=== PATIENT | male | born 1945 | race Caucasian/White ===

== ENCOUNTER 2019-04-12 06:42 | Inpatient (IN) | payer OTHER, SELFPAY ==
[2019-04-12] VITALS (21 sets, daily range): BP systolic 125–211; BP diastolic 71–125; PULSE 65–92; RESP 17–30; TEMP 35.9–37.1; O2SAT 84–100; BMI 31.4
--- NOTE | ~2019-04-12 | XR_ITS ---
EXAMINATION: XR chest 1V portable DATE: 04/12/2019 07:34 INDICATION: Shortness of breath. TECHNIQUE: A single frontal view of the chest was obtained on 2 radiographs. COMPARISON: Chest single view 08/26/2018, CT abdomen and pelvis 05/13/2017 FINDINGS: The lungs are hyperexpanded with lucencies, consistent with emphysema. There are airspace o pacities in right lower lung zone. No pleural effusion or pneumothorax. The heart size is normal. The re is an old healed left rib fracture. IMPRESSION: 1. Worsened airspace opacities in right lower lung zone, consistent with atelectasis versus pneumonia . 2. Emphysema. Reviewed, dictated and finalized at location A. ORN ATTENDANT IMPRESSION: 1. Worsened airspace opacities in right lower lung zone, consistent with atelec tasis versus pneumonia. 2. Emphysema.
--- NOTE | 2019-04-12 06:46 | ECG_ITS ---
Measurements Intervals [place] Rate: 76 P: [place]: 0 QRS: 99 QRSD: 119 T: 4 QT: 388 QTc: 437 Interpretive Statements ATRIAL FIBRILLATION RIGHT AXIS DEVIATION LOW QRS VOLTAGE IN PRECORDIAL LEADS INCOMPLETE RIGHT BUNDLE BRANCH BLOCK BORDERLINE ST-T WAVE ABNORMALITY- INFERIOR LEADS BASELINE ARTIFACT- II, III, AVL, AVF, V2, V6 ABNORMAL ECG Electronically Signed On 04-12-2019 7:00:51 OBSERVATION ASSISTANT by Ever Giron D.O.
[2019-04-12] MEDS: FUROSEMIDE INJ 40 MG/4 ML VIAL IV PUSH (06:59)
[2019-04-12] MEDS: NITROGLYCERIN OINTMENT 1 INCH DOSE TRANSDERM (06:59)
[2019-04-12 07:03] LABS: Alveolar/Arterial O2 Gradient 152.8 mmHg; Base Excess ABG -4.2 mEq/l (+/-2.0); Fractional Inspired Oxygen 80 %; HCO3 ABG 23.4 mEq/l (22.0-26.0); Oxygen Content ABG 18.7 %vol (16.0-22.0); Oxygen Saturation ABG 99.7 % (95.0-100.0); Oxyhemoglobin 98.5 % THb (90.0-100.0); PCO2 ABG 53.6 mmHg (35.0-45.0); PO2 ABG 361.3 mmHg (80.0-100.0); PO2 FiO2 Ratio Arterial Blood 4.52 %; Total Hemoglobin 12.8 g/dL (12.0-18.0)
[2019-04-12 07:04] LABS: pH ABG 7.258 (7.350-7.450)
[2019-04-12 07:04] LABS: Basophils Percent Auto 0.5 % (0.2-1.2); Eosinophils Percent Auto 0.5 % (0-4.4); Hematocrit 37.7 % (42.0-52.0); Hemoglobin 11.9 g/dL (14.0-18.0); Immature Granulocyte Absolute 0.03 K/mm3 (0.00-0.031); Immature Granulocyte Percent A 0.4 % (0-0.5); Lymphocytes Absolute Auto 1.85 K/mm3 (0.9-3.2); Lymphocytes Percent Auto 24.2 % (18.3-44.2); Mean Corpuscular HGB Conc 31.6 g/dl (32-36); Mean Corpuscular Hemoglobin 29.5 pg (26-34); Mean Corpuscular Volume 93.3 fl (80-100); Mean Platelet Volume 10.9 fl (7.4-10.4); Monocytes Absolute Auto 0.7 K/mm3 (0.1-0.6); Neutrophils Percent Auto 65.4 % (45.5-73.1); Nucleated Red Blood Cells Perc 0.3 % (0.0-0.2); Platelet Count Result 223 k/mm3 (150-375); Red Blood Count 4.04 M/mm3 (4.6-6.20); Red Cell Distribution Width 13.7 % (11.5-14.5); White Blood Count 7.7 K/mm3 (4.5-10.0)
[2019-04-12 07:05] LABS: Device NON-INVASIVE VENT; Modified Allen's Test Pass; Non-Invasive Expiratory Pressure 6 CMH2O; Non-Invasive Inspiratory Pressure 12 CMH2O; Non-Invasive Vent Rate 4 /MIN; Site Drawn RIGHT RADIAL
--- NOTE | 2019-04-12 07:05 | PC.NURSE ---
pt states he isn't able to give urine sample at this time, pt refuses straight cath.
[2019-04-12] MEDS: ALBUTEROL SULFATE NEB 2.5 MG/0.5 ML INH 5 MG INHALATION ×2 (07:07→16:50)
[2019-04-12 08:22] LABS: Add Urine Microscopic? YES; Appearance Urine Clear (Clear); Bilirubin Urine Negative (Negative); Blood Urine Negative (Negative); Color Urine Yellow (Yellow); Glucose Urine UA Negative (Negative); Ketones Urine Negative (Negative); Leukocyte Esterase Ur Negative LEU/UL (Negative); Mucus Urine Rare /lpf; Nitrate Urine Negative (Negative); Protein Urine 2+ mg/dL (Negative); RBC Urine 0-2 /hpf (0-2); Specific Grav Ur 1.014 (1.001-1.035); Urobilinogen Urine Negative mg/dL (<2.0); WBC Urine 0-3 /hpf
--- NOTE | 2019-04-12 08:23 | PC.NURSE ---
LAB HAS REJECTED X2 GREEN [place]S, JOHN PARSON HAS REDRAWN PT AGAIN AT THIS TIME AND SENT BLOOD TO LAB.
[2019-04-12 08:36] LABS: Alanine Aminotransferase 11 U/L (4-50); Albumin Level 4.7 g/dL (3.5-5.1); Alkaline Phosphatase 101 U/L (38-126); Aspartate Amino Transferase 17 U/L (17-59); Bilirubin,Total 0.9 mg/dL (0.2-1.3); Blood Urea Nitrogen 21 mg/dL (9-20); Calcium 9.1 mg/dL (8.4-10.2); Carbon Dioxide 27 mmol/L (22-30); Chloride 101 mmol/L (98-107); Estimated Glomerular Filt Rate 46; Glucose 124 mg/dL (75-110); Potassium 4.9 mmol/L (3.4-5.0); Sodium 139 mmol/L (137-145)
[2019-04-12 08:47] LABS: NT Pro B Type Natriuretic Pept 4910 PG/ML (5-100); Troponin I 0.016 ng/mL (0.000-0.034)
--- NOTE | 2019-04-12 09:29 | ED.GENADULT ---
HPI - General Adult General Chief complaint: Shortness of Breath/Dyspnea Stated complaint: DIFFICULTY BREATHING Time Seen by Provider: 04/12/19 06:45 Source: patient Mode of arrival: EMS Limitations: no limitations History of Present Illness HPI narrative: 74-year-old with a history of COPD, renal insufficiency here with a complaint of shortness of breath since the ER last night. Patient states that he woke up with severe short of breath this morning. He denies any chest pain, no history of fever or chills. He states that he has dry productive cough at times. No history of nausea, vomiting or abdominal pain. Onset (ago): day(s) (1) Severity: moderate Related Data Home Medications Medication Instructions Recorded Confirmed finasteride 5 mg tablet 5 mg PO DAILY 04/08/19 furosemide 40 mg tablet 40 mg PO QAM 04/08/19 propranolol 40 mg tablet 40 mg PO Q12H 04/08/19 rosuvastatin 40 mg tablet 40 mg PO DAILY 04/08/19 tamsulosin 0.4 mg capsule 0.4 mg PO DAILY 04/08/19 Allergies Allergy/AdvReac Type Severity Reaction Status Date / Time codeine Allergy Unknown Upset Verified 05/05/18 15:01 stomach Review of Systems Review of Systems: All systems reviewed & are unremarkable except as noted in HPI and below Constitutional: Constitutional: Reports no additional constitutional complaints Eyes: Eyes: Reports no additional eye complaints ENT: Reports system reviewed and no additional complaints, except as documented Cardiovascular: Cardiovascular: Reports no additional cardiovascular complaints Respiratory: Respiratory: Reports dyspnea Gastrointestinal: Gastrointestinal: Reports no additional gastrointestinal complaints Musculoskeletal: Musculoskeletal: Reports no additional musculoskeletal complaints Integumentary/Breasts: Skin/Breast: Reports system reviewed and no additional complaints, except as docu Neurologic: Reports system reviewed and no additional complaints, except as documented [facility] Family History Family History (Updated 08/14/16 @ 09:50 by DOCTOR UNKNOWN) Mother Cerebrovascular accident Patient's mother is Family history of cardiovascular disease Father Patient's father is Sibling Acute myocardial infarction Social History Social History Smoking status: Former smoker Smoking end date: 03/30/10 Alcohol intake: current Exam Const: General: alert and ill appearing Orientation/consciousness: patient oriented x3 Other: in mild respiratory distress HENMT: Head: normal to inspection Eyes: Conjunctivae: conjunctivae normal Pupils: Equal, round and reactive pupils present Neck: Neck: normal visual inspection Chest: Chest palpation & inspection: normal inspection of the chest Resp: Effort & Inspection: labored Auscultation: wheezes GI: GI Palp: Yes Soft to palpation Back/Spine/Pelvis: Back: no CVA tenderness Skin: General skin exam: normal color Course Course Emergency Course: Patient feeling much better on BiPAP. I discussed lab, chest x-ray findings with patient and family. We will admit him to the hospital for IV antibiotics and for pneumonia Vital Signs Vital signs: Vital Signs Temperature 35.9 C L 04/12/19 06:41 Pulse Rate 81 04/12/19 06:41 Respiratory Rate 28 H 04/12/19 06:41 Blood Pressure 211/125 H 04/12/19 06:41 Pulse Oximetry 84 L 04/12/19 06:41 Temperature 35.9 C L 04/12/19 06:41 Pulse Rate 71 04/12/19 09:19 Respiratory Rate 17 04/12/19 09:19 Blood Pressure 132/84 04/12/19 09:19 Pulse Oximetry 100 04/12/19 09:19 Medical Decision Making Vital Signs Vital Signs: Vital Signs Temperature 35.9 C L 04/12/19 06:41 Pulse Rate 81 04/12/19 06:41 Respiratory Rate 28 H 04/12/19 06:41 Blood Pressure 211/125 H 04/12/19 06:41 Pulse Oximetry 84 L 04/12/19 06:41 Temperature 35.9 C L 04/12/19 06:41 Pulse Rate 71 04/12/19 09:19 Respiratory Rate 17 04/12/19 09:19
--- NOTE | 2019-04-12 12:12 | ADMGEN ---
This patient, Trent Swartz, was admitted to Intensive Care Unit-9. Patient/family oriented to hospital policies and general routines including ID bracelet, bed and alarms, visiting hours, pain management, procedures, bathroom and other care routines, personal items, smoking policy, room service/diet, and visiting hours. Valuables list has been completed. Information on how to activate the Rapid Response Team has been discussed. Patient/Family are encouraged to report perceived risks to care and to ask questions if they do not understand what they are told or what they should do.
[2019-04-12] MEDS: methylPREDNISolone SOD SUCC 125 MG VIAL 60 MG IV PUSH ×2 (13:45→17:19)
[2019-04-12] MEDS: TAMSULOSIN HCL 0.4 MG CAPSULE PO (14:29)
[2019-04-12] MEDS: ROSUVASTATIN 10 MG TABLET 40 MG PO (14:29)
[2019-04-12] MEDS: POTASSIUM CHLORIDE 20 MEQ TABLET.ER PO (14:29)
[2019-04-12] MEDS: FINASTERIDE 5 MG TABLET PO (14:30)
[2019-04-12 14:52] LABS: Alveolar/Arterial O2 Gradient 76.1 mmHg; Base Excess ABG -2.2 mEq/l (+/-2.0); Carboxyhemoglobin 0.3 % THb (0-2.0); Fractional Inspired Oxygen 28 %; Methemoglobin ABG 0.4 %THb (0-1.5); Oxygen Content ABG 16.1 %vol (16.0-22.0); Oxygen Saturation ABG 96.2 % (95.0-100.0); Oxyhemoglobin 94.9 % THb (90.0-100.0); PCO2 ABG 35.7 mmHg (35.0-45.0); PO2 ABG 81.4 mmHg (80.0-100.0); PO2 FiO2 Ratio Arterial Blood 2.91 %; Reduced Hemoglobin 4.4 %THb (0-5.0); pH ABG 7.407 (7.350-7.450)
[2019-04-12 14:53] LABS: Device NASAL CANNULA; Modified Allen's Test Pass; Site Drawn RIGHT RADIAL
[2019-04-12 14:59] LABS: Influenza Control Positive
[2019-04-12] MEDS: IPRATROPIUM BR 0.02% INH SOLN 0.5 MG/2.5 ML VIAL INHALATION (16:50)
--- NOTE | 2019-04-12 17:00 | PM.IMHP ---
H&P: HPI History of Present Illness Chief complaint: Shortness of breath. Narrative: Trent Swartz is a 74 year old male with multiple medical problems including ischemic heart disease, chronic atrial fibrillation, hypertension, chronic kidney disease, and probable COPD who presented to the emergency department earlier this morning via EMS from home for evaluation of shortness of breath. He went to bed around 22:00 and sometime during the middle of the night he woke up and at that time notes that he was gasping for air. He was unable to get back to sleep due to the shortness of breath, and eventually he called EMS. Upon their arrival, his oxygen saturation was 84%, was in respiratory distress, and was unable to speak in full sentences. He was placed on CPAP by EMS and was transitioned to BiPAP on arrival to the emergency department after ABGs were consistent with acute respiratory acidosis. At the time my evaluation, he has been taken off the BiPAP with normalization of his blood gases. Mr. Swartz tells me that he wakes up frequently at nighttime, struggling to breathe and gasping for air. An apnea link was positive in August 2018, and he is scheduled for a formal sleep study April 21, 2019. His tells him that he snores, he does not always feel well rested when waking, and frequently falls asleep while watching television. He believes that he has been diagnosed with asthma and/or COPD, but cannot recall ever seeing a molder shoulder pad and he is not on inhalers at home. At baseline, he does get short of breath quite easily and will get winded when climbing up a flight of steps. At the grocery store he uses the electric cart ?9 out of 10 times?, but mainly due to hip pain although he admits that he would probably be short of breath when shopping if he did not use the cart. He very rarely has a cough productive of clear phlegm, and this is unchanged. He will occasionally wheeze, but nothing significant. He is in chronic atrial fibrillation, and occasionally has palpitations and fluttering, but that is rare. He has not had fever, chills, or sweats. No sinus congestion, rhinorrhea, otalgia, or odynophagia. He denies chest pain, pleuritic pain, and palpitations. It sounds as though he might have mild orthopnea but he has always been able to sleep on just 1 pillow. Intermittently he will have lower extremity edema, but nothing significant. No history of venous thromboembolism. He denies calf pain and tenderness. No dysphagia or concerns for aspiration. At the time my evaluation, he is feeling much better and ?back to normal.? Review of Systems Review of Systems: Narrative: Twelve systems were reviewed with pertinent positives and negatives as per HPI. Frequent clear rhinorrhea but no overt cold or flu-like symptoms. He has not had exertional chest pain. Appetite is ?hit and miss? but he denies nausea and vomiting. He had some loose stools yesterday but no overt diarrhea. He denies dysuria. He does have symptoms of BPH, with slow stream and occasional dribbling as on medication for that at home. No epigastric pain, GERD, or indigestion. He has a history of GI bleed secondary to gastric AVMs which were cauterized within the past couple of years. This is why he is not on long-term anticoagulation for his chronic atrial fibrillation. Except as documented, all other systems were reviewed and are negative. [facility] Past Medical History Medical History (Updated 04/12/19 @ 18:49 by Nadege Mcelroy PA-C) Benign prostatic hyperplasia Chronic anemia Chronic atrial fibrillation Chronic kidney disease, stage 3 Baseline creatinine between 1.5 and 1.70. COPD (chronic obstructive pulmonary disease) I do not believe this is been officially diagnosed. Emphysema noted on imaging. Coronary artery disease With history of NV. Patient has drug-eluting stent to OM and 2 drug-eluting stent to LAD placed in December 2016. Stress test 09/07/2018 showed no fixed or
[2019-04-12 18:10] LABS: Glucose Point of Care 228 (65-105)
[2019-04-12] MEDS: PROPRANOLOL HCL 40 MG TABLET PO (19:56)
[2019-04-12 20:44] LABS: Glucose Point of Care 188 (65-105)
[2019-04-13] VITALS (25 sets, daily range): BP systolic 121–153; BP diastolic 56–72; PULSE 54–88; RESP 15–20; TEMP 36.1–36.7; O2SAT 92–98
[2019-04-13] MEDS: IPRATROPIUM BR 0.02% INH SOLN 0.5 MG/2.5 ML VIAL INHALATION ×3 (02:10→21:10)
[2019-04-13] MEDS: ALBUTEROL SULFATE NEB 2.5 MG/0.5 ML INH 5 MG INHALATION ×3 (02:10→21:10)
[2019-04-13 05:10] LABS: Hematocrit 31.8 % (42.0-52.0); Hemoglobin 10.4 g/dL (14.0-18.0); Immature Granulocyte Absolute 0.03 K/mm3 (0.00-0.031); Immature Granulocyte Percent A 0.3 % (0-0.5); Lymphocytes Absolute Auto 0.78 K/mm3 (0.9-3.2); Lymphocytes Percent Auto 8.9 % (18.3-44.2); Mean Corpuscular HGB Conc 32.7 g/dl (32-36); Mean Corpuscular Hemoglobin 29.9 pg (26-34); Mean Corpuscular Volume 91.4 fl (80-100); Mean Platelet Volume 10.9 fl (7.4-10.4); Monocytes Absolute Auto 0.1 K/mm3 (0.1-0.6); Monocytes Percent Auto 1.3 % (2.6-8.5); Neutrophils Absolute Auto 7.9 K/mm3 (1.3-6.7); Neutrophils Percent Auto 89.5 % (45.5-73.1); Platelet Count Result 174 k/mm3 (150-375); Red Blood Count 3.48 M/mm3 (4.6-6.20); Red Cell Distribution Width 13.6 % (11.5-14.5); White Blood Count 8.8 K/mm3 (4.5-10.0)
[2019-04-13 05:29] LABS: Blood Urea Nitrogen 31 mg/dL (9-20); Calcium 8.9 mg/dL (8.4-10.2); Carbon Dioxide 24 mmol/L (22-30); Chloride 94 mmol/L (98-107); Estimated CRCL calculation 41 ml/min; Estimated Glomerular Filt Rate 46; Glucose 160 mg/dL (75-110); Potassium 4.2 mmol/L (3.4-5.0); Sodium 133 mmol/L (137-145)
[2019-04-13] MEDS: PROPRANOLOL HCL 40 MG TABLET PO ×2 (08:29→20:19)
[2019-04-13] MEDS: POTASSIUM CHLORIDE 20 MEQ TABLET.ER PO (08:30)
[2019-04-13] MEDS: FINASTERIDE 5 MG TABLET PO (08:31)
[2019-04-13] MEDS: TAMSULOSIN HCL 0.4 MG CAPSULE PO (08:32)
[2019-04-13] MEDS: ROSUVASTATIN 10 MG TABLET 40 MG PO (08:32)
--- NOTE | 2019-04-13 09:03 | ECG_ITS ---
Measurements Intervals [place] Rate: 76 P: [place]: 0 QRS: 96 QRSD: 134 T: 4 QT: 448 QTc: 504 Interpretive Statements ATRIAL FIBRILLATION VENTRICULAR PREMATURE COMPLEX RIGHT BUNDLE BRANCH BLOCK BASELINE ARTIFACT- I, II, III, AVR, AVL, AVF, V1-V3, V6 ABNORMAL ECG Electronically Signed On 04-13-2019 10:14:22 COMMODITY BROKER by Ever Giron D.O.
[2019-04-13] MEDS: ASPIRIN 81 MG ENTERIC TABLET PO (09:46)
--- NOTE | 2019-04-13 10:29 | PM.IMPN ---
Progress Note: A&P Assessment and Plan (1) Acute respiratory failure with hypoxia and hypercapnia: Code(s): J96.01 - Acute respiratory failure with hypoxia; J96.02 - Acute respiratory failure with hypercapnia Status: Acute Assessment and Plan: Probably combination of COPD, obesity hypoventilation syndrome and obstructive sleep apnea. Did receive IV Solu-Medrol and nebulizer treatment on admission. Clinically does not appear to have pneumonia. Did receive IV antibiotics emergency room but will not continue at this point. Very quickly weaned off BiPAP on admission. Has already weaned off oxygen by the time my exam. Dr. Joseph has consulted and appreciate input from pulmonology standpoint. Will transfer to medical floor as stable. (2) COPD (chronic obstructive pulmonary disease): Qualifiers: COPD type: unspecified COPD Qualified Code(s): J44.9 - Chronic obstructive pulmonary disease, unspecified Code(s): J44.9 - Chronic obstructive pulmonary disease, unspecified Status: Acute Assessment and Plan: No previous diagnosis but chest x-ray on admission with emphysema. Will continue Symbicort as started on admission. Continue nebulizer treatments. Await further pulmonology recommendations. (3) Suspected sleep apnea: Code(s): R29.818 - Other symptoms and signs involving the nervous system Status: Acute Assessment and Plan: Previous abnormal Apnea Link in August 2018. Already has outpatient sleep study scheduled for 04/21/2019. Await further recommendations from pulmnology. (4) Diastolic congestive heart failure: Qualifiers: Heart failure chronicity: chronic Qualified Code(s): I50.32 - Chronic diastolic (congestive) heart failure Code(s): I50.30 - Unspecified diastolic (congestive) heart failure Status: Acute Assessment and Plan: He did receive 1 dose of IV Lasix in the emergency department but does not appear to be overloaded at this time. Anticipate will eventually resume home oral Lasix. Echocardiogram done today with EF 65-70%, abnormal diastolic dysfunction, moderate aortic valve sclerosis, [id number] mitral valve regurgitation and mild pulmonary hypertension. Will continue to monitor. (5) Chronic atrial fibrillation: Code(s): I48.20 - Chronic atrial fibrillation, unspecified Status: Acute Assessment and Plan: Telemetry reviewed on 04/13/19 with atrial fibrillation with heart rate controlled. Repeat EKG was done this morning as there was some concern about possible R on T on telemetry. EKG reviewed with atrial fibrillation with no other concern. Continue home propranolol and ASA. (6) Hypertension: Qualifiers: Hypertension type: essential hypertension Qualified Code(s): I10 - Essential (primary) hypertension Code(s): I10 - Essential (primary) hypertension Status: Acute Assessment and Plan: Blood pressure reviewed on 04/13/2019 with some variation but acceptable. Will continue to monitor on propranolol. (7) Chronic kidney disease, stage 3: Code(s): N18.3 - Chronic kidney disease, stage 3 (moderate) Status: Acute Assessment and Plan: Creatinine stable at baseline at 1.50 today. Will monitor. (8) DVT prophylaxis: Code(s): Z29.9 - Encounter for prophylactic measures, unspecified Status: Acute Assessment and Plan: SCDs. Time Spent With Patient Time with patient: 15 - 25 minutes Subjective Date/time seen: 04/13/19 10:29 Interval history: Date of Service: 04/13/2019. Admitted with acute respiratory failure. Patient reports he is feeling much better today. No shortness of breath. No cough. No chest pain or pressure. No abdominal pain. No headache or dizziness. Review of Systems Review of Systems: Narrative: Time feeling better today. Constitutional: Constitutional: Denies chills and Denies fever(s) ENT: Denies nasal conge
--- NOTE | 2019-04-13 10:59 | PCRCNOTE ---
HOME O2 EVAL COMPLETE, NO REQUIREMENTS
[2019-04-13] MEDS: PERFLUTREN LIPID MICROSPHERES 1.5 ML VIAL DILUTED TO 10 ML TOTAL VOLUME IV PUSH (11:32)
[2019-04-13 12:11] LABS: Glucose Point of Care 164 (65-105)
--- NOTE | 2019-04-13 13:15 | PC.NURSE ---
Received patient from IMU via bed with IMU staff. Patient settled into room. No distress noted. No c/o pain.
[2019-04-13 17:38] LABS: Glucose Point of Care 151 (65-105)
--- NOTE | 2019-04-13 18:48 | ECHO_ITS ---
Patient Info Name: Trent Swartz Age: 74 years : 1945 Gender: Male Ht: 67 in Wt: 201 lbs BSA: 2.11 m2 HR: 60 bpm BP: 121 / 61 mmHg Heart Rhythm: Atrial Fibrillation Technical Quality: Fair Exam Date: 04/13/2019 11:00 AM Exam Location: [facility] Patient Status: Inpatient Admit Date: 04/12/2019 Staff Ordering Physician: Nadege Mcelroy PA-C Glass Cylinder Flanger: Marty Saxena RDCS Attending Provider: Tatiana Cross MD Referring Physician: Navi PANCHAL; Exam Type: CA echo dop color flow w con Study Info Indications R06.02 - Shortness of breath Complete two-dimensional, color flow and Doppler transthoracic echocardiogram is performed with contrast to opacify the left ventricle and to improve the deliniation of the left ventricle endocardial borders. Contrast/Agitated Saline Contrast/Ag. Saline: Definity Amount: 3.00 ml Administered By: Kassandra Juares RN History/Risk Factors Afib, SOB, CAD/ID w/ stents, HTN, Hypoxia, CKD III, COPD, pHTN. Summary 1. Left ventricular chamber dimension is normal. 2. Left ventricular systolic function is normal, estimated at 65-70%. 3. There is moderate asymmetric septal increased left ventricular wall thickness. 4. The left ventricular diastolic function is abnormal. 5. The apical septum, and mid anteroseptal are hypokinetic. 6. Left atrial chamber dimension is severely enlarged. 7. Right atrial chamber dimension is moderately enlarged. 8. There is moderate aortic valve sclerosis. 9. There is mild to moderate mitral valve regurgitation. 10. There is mild tricuspid valve regurgitation. 11. Mild pulmonary hypertension, estimated pulmonary arterial systolic pressure is 43 mmHg. 12. There is mild pulmonic regurgitation. Left Ventricle Left ventricular chamber dimension is normal. Left ventricular systolic function is normal, estimated at 65-70%. There is moderate asymmetric septal increased left ventricular wall thickness. The left ventricular diastolic function is abnormal. The apical septum, and mid anteroseptal are hypokinetic. All other joy appear normal. Right Ventricle Right ventricular chamber dimension is normal. Right ventricular systolic function is normal. Left Atria Left atrial chamber dimension is severely enlarged. Right Atria Right atrial chamber dimension is moderately enlarged. Atrial Septum Intact interatrial septum visualized by color flow imaging. Aortic Valve The aortic valve is trileaflet. There is moderate aortic valve sclerosis. There is no aortic valve stenosis. There is trace aortic valve regurgitation. There is mild aortic valve calcification. Pulmonic Valve The pulmonic valve is normal. There is no pulmonic valve stenosis. There is mild pulmonic regurgitation. Mitral Valve The mitral valve has thickened leaflets and calcified annulus. There is no mitral valve stenosis. There is mild to moderate mitral valve regurgitation. Tricuspid Valve The tricuspid valve leaflets are normal. There is no significant tricuspid valve stenosis. There is mild tricuspid valve regurgitation. Mild pulmonary hypertension, estimated pulmonary arterial systolic pressure is 43 mmHg. Pericardium/Pleural The pericardium appears normal. There is trivial pericardial effusion. Inferior Vena Cava Dilated inferior vena cava with >50% collapse upon inspiration consistent with elevated right atrial pr
[2019-04-14] VITALS (7 sets, daily range): BP systolic 139–161; BP diastolic 56–85; PULSE 54–81; RESP 15–22; TEMP 36.1–36.4; O2SAT 96–98
[2019-04-14] MEDS: IPRATROPIUM BR 0.02% INH SOLN 0.5 MG/2.5 ML VIAL INHALATION ×2 (02:33→09:33)
[2019-04-14] MEDS: ALBUTEROL SULFATE NEB 2.5 MG/0.5 ML INH 5 MG INHALATION ×2 (02:33→09:33)
[2019-04-14 03:58] LABS: Glucose Point of Care 182 (65-105)
[2019-04-14 06:26] LABS: Glucose Point of Care 133 (65-105)
[2019-04-14] MEDS: POTASSIUM CHLORIDE 20 MEQ TABLET.ER PO (09:00)
[2019-04-14] MEDS: ASPIRIN 81 MG ENTERIC TABLET PO (09:00)
[2019-04-14] MEDS: FINASTERIDE 5 MG TABLET PO (09:00)
[2019-04-14] MEDS: PROPRANOLOL HCL 40 MG TABLET PO (09:01)
[2019-04-14] MEDS: ROSUVASTATIN 10 MG TABLET 40 MG PO (09:02)
[2019-04-14] MEDS: TAMSULOSIN HCL 0.4 MG CAPSULE PO (09:02)
[2019-04-14 12:45] LABS: Glucose Point of Care 110 (65-105)
--- NOTE | 2019-04-14 13:31 | PM.IMPN ---
Progress Note: A&P Assessment and Plan (1) Acute respiratory failure with hypoxia and hypercapnia: Code(s): J96.01 - Acute respiratory failure with hypoxia; J96.02 - Acute respiratory failure with hypercapnia Status: Acute Assessment and Plan: Probably combination of COPD, obesity hypoventilation syndrome and obstructive sleep apnea. Did receive IV Solu-Medrol and nebulizer treatment on admission. Clinically does not appear to have pneumonia. Did receive IV antibiotics emergency room but will not continue at this point. Very quickly weaned off BiPAP on admission. Remains off oxygen at this time. Originally did have pulmonology consultation but has significantly improved. Discussed with patient and supervisor [employer]. Can see supervisor [employer] as an outpatient. Will discharge home today. (2) COPD (chronic obstructive pulmonary disease): Qualifiers: COPD type: unspecified COPD Qualified Code(s): J44.9 - Chronic obstructive pulmonary disease, unspecified Code(s): J44.9 - Chronic obstructive pulmonary disease, unspecified Status: Acute Assessment and Plan: No previous diagnosis but chest x-ray on admission with emphysema. Will continue Symbicort as started on admission. Has been on nebulizer treatments here. Can see supervisor [employer] as outpatient. (3) Suspected sleep apnea: Code(s): R29.818 - Other symptoms and signs involving the nervous system Status: Acute Assessment and Plan: Previous abnormal Apnea Link in August 2018. Already has outpatient sleep study scheduled for 04/21/2019 and advised to keep that appointment. (4) Diastolic congestive heart failure: Qualifiers: Heart failure chronicity: chronic Qualified Code(s): I50.32 - Chronic diastolic (congestive) heart failure Code(s): I50.30 - Unspecified diastolic (congestive) heart failure Status: Acute Assessment and Plan: He did receive 1 dose of IV Lasix in the emergency department but does not appear to be overloaded at this time. Echocardiogram done on 04/13/2019 with EF 65-70%, abnormal diastolic dysfunction, moderate aortic valve sclerosis, [id number] mitral valve regurgitation and mild pulmonary hypertension. Resume home Lasix at discharge. (5) Chronic atrial fibrillation: Code(s): I48.20 - Chronic atrial fibrillation, unspecified Status: Acute Assessment and Plan: Heart rate remains controlled. Continue home propranolol. Continue home ASA. (6) Hypertension: Qualifiers: Hypertension type: essential hypertension Qualified Code(s): I10 - Essential (primary) hypertension Code(s): I10 - Essential (primary) hypertension Status: Acute Assessment and Plan: Blood pressure reviewed on 04/14/2019 and stable. Continue home propranolol. (7) Chronic kidney disease, stage 3: Code(s): N18.3 - Chronic kidney disease, stage 3 (moderate) Status: Acute Assessment and Plan: Creatinine stable at baseline at 1.50 on 04/13/2019. (8) DVT prophylaxis: Code(s): Z29.9 - Encounter for prophylactic measures, unspecified Status: Acute Assessment and Plan: SCDs. Time Spent With Patient Time with patient: 15 - 25 minutes Subjective Date/time seen: 04/14/19 13:31 Interval history: Date of Service: 04/14/2019. Admitted with acute respiratory failure. Feeling back to normal at this point. No headache or dizziness. No chest pain. No shortness of breath. Review of Systems Review of Systems: Narrative: Feeling better. Wants to go home. Constitutional: Constitutional: Denies chills and Denies fever(s) ENT: Denies nasal congestion and Denies nasal discharge Cardiovascular: Cardiovascular: Denies chest pain and Denies lightheadedness Respiratory: Respiratory: Denies cough and Denies dyspnea Gastrointestinal: Gastrointestinal: Denies abdominal pain, Denies nausea and Denies vomiting Genitourinary:
--- NOTE | 2019-04-14 18:12 | PM.DS ---
DS: Diagnosis Admitting Diagnosis Admitting Diagnosis: Acute respiratory failure with hypoxia Discharge Diagnosis (1) Acute respiratory failure with hypoxia and hypercapnia: Code(s): J96.01 - Acute respiratory failure with hypoxia; J96.02 - Acute respiratory failure with hypercapnia Status: Acute (2) COPD (chronic obstructive pulmonary disease): Qualifiers: COPD type: unspecified COPD Qualified Code(s): J44.9 - Chronic obstructive pulmonary disease, unspecified Code(s): J44.9 - Chronic obstructive pulmonary disease, unspecified Status: Acute Assessment and Plan: (3) Suspected sleep apnea: Code(s): R29.818 - Other symptoms and signs involving the nervous system Status: Acute (4) Diastolic congestive heart failure: Qualifiers: Heart failure chronicity: chronic Qualified Code(s): I50.32 - Chronic diastolic (congestive) heart failure Code(s): I50.30 - Unspecified diastolic (congestive) heart failure Status: Acute (5) Chronic atrial fibrillation: Code(s): I48.20 - Chronic atrial fibrillation, unspecified Status: Acute (6) Hypertension: Qualifiers: Hypertension type: essential hypertension Qualified Code(s): I10 - Essential (primary) hypertension Code(s): I10 - Essential (primary) hypertension Status: Acute (7) Chronic kidney disease, stage 3: Code(s): N18.3 - Chronic kidney disease, stage 3 (moderate) Status: Acute DS: Summary Hospital Course Reason for hospitalization: Shortness of breath. Hospital Course: Date of Service of Discharge: April 14, 2019. History of Present Illness: Patient is a 74-year-old gentle with multiple medical problems including ischemic heart disease, chronic atrial fibrillation, hypertension, chronic kidney disease and probable COPD present emergency department by EMS from home for evaluation of shortness of breath. Patient reports he went to bed around 2200 the evening before and sometime during the middle of night woke gasping for air. He reports he was unable to get back to sleep due to this shortness of breath and eventually called EMS. Upon arrival of EMS, oxygen saturation was 84% with patient in respiratory distress and unable to speak in full sentences. He was placed on CPAP by EMS and transition to BiPAP on arrival to the emergency department. He does report a history of waking up frequently at night struggling to breathe and gasping for air. He does already have a sleep study scheduled for April 21, 2019 based on an abnormal Apnea link in August 2018. He does not always feel rested when waking. He frequently falls asleep while watching television. He believes he has been diagnosed with asthma and/ or COPD but has never seen a environmental attorney. He does report getting short of breath quite easily. No recent fevers or chills. No chest pain or chest pressure. In the emergency room, findings were consistent with acute respiratory failure. As result, he was admitted for further evaluation and treatment. Course in Hospital: On admission, patient was placed in the intermediate care unit. As noted he was started on BiPAP but quickly weaned back on to oxygen by nasal cannula. He subsequently quickly weaned off to room air by the morning of 04/13/2019. Acute respiratory failure was felt to be probably a combination of COPD, obesity hypoventilation syndrome and obstructive sleep apnea. He did receive a dose of IV Solu-Medrol in the emergency room but this was not continued. Additionally, he was given dose of IV Lasix but transitioned back to his home oral Lasix by discharge with no additional IV diuretic given. He was also given some IV antibiotics in the emergency room but with no sign of infection these were not continued. He was however continued on nebulizer treatments. BiPAP was available if needed. He was started on Symbicort. Pulmonology consultation was initially
== END 2019-04-14 14:35 | disposition home or self-care (01) | DRG 206 ==
LOC: ANHED 09:52 → ANHICU 15:35 → ANH2MED 04-13 18:17 → ANHICU 04-18 13:11 → ANHIMU 04-18 13:11
PROVIDERS: Physician Assistant; Admitting Provider Family Medicine; Emergency Provider Family Medicine; PCP Internal Medicine; Visit Provider Hospitalist
DX: E66.2 Morbid (severe) obesity with alveolar hypoventilation (principal); I13.0 Hypertensive heart and chronic kidney disease with heart failure and stage 1 through stage 4 chronic kidney disease, or unspecified chronic kidney disease; I48.20 Chronic atrial fibrillation, unspecified; I50.32 Chronic diastolic (congestive) heart failure; J43.9 Emphysema, unspecified; Z68.31 Body mass index [BMI] 31.0-31.9, adult; I11.0 Hypertensive heart disease with heart failure; N18.3 Chronic kidney disease, stage 3 (moderate); I25.9 Chronic ischemic heart disease, unspecified; N40.0 Benign prostatic hyperplasia without lower urinary tract symptoms; I25.10 Atherosclerotic heart disease of native coronary artery without angina pectoris; Z95.5 Presence of coronary angioplasty implant and graft; I25.2 Old myocardial infarction; D64.9 Anemia, unspecified; G25.0 Essential tremor; Z86.73 Personal history of transient ischemic attack (TIA), and cerebral infarction without residual deficits; Z85.118 Personal history of other malignant neoplasm of bronchus and lung; Z90.2 Acquired absence of lung [part of]; E78.2 Mixed hyperlipidemia; M19.90 Unspecified osteoarthritis, unspecified site; Z95.820 Peripheral vascular angioplasty status with implants and grafts; I27.20 Pulmonary hypertension, unspecified
CPT/HCPCS: 36415; 36600; 71045; 80048; 80053; 81001; 82375; 82805; 83050; 83880; 84484; 85025; 87040; 87804; 93005; 94002; 94618; 94640; 96374; 96375; 99285; A9270; C8929; J0456; J0696; J1940; J2930; Q9957

== ENCOUNTER 2019-06-06 08:00 | Inpatient (IN) | payer OTHER, SELFPAY ==
[2019-06-06] VITALS (25 sets, daily range): BP systolic 123–210; BP diastolic 68–103; PULSE 76–109; RESP 16–34; TEMP 36.1–37.1; O2SAT 92–100; BMI 32.8
--- NOTE | ~2019-06-06 | XR_ITS ---
XR chest 1V portable 06/06/2019 08:31 Indication: Cough with shortness of breath Procedure: AP portable chest Comparison: Comparison to multiple prior studies sequentially, with oldest reviewed study dated 02/27. Findings: Cardiomegaly. There is asymmetric airspace disease of the right lung. No pleural effusion o r pneumothorax. No acute osseous abnormality. The lungs are hyperinflated which is consistent with, b ut not diagnostic of chronic obstructive pulmonary disease. Impression: 1: Asymmetric right-sided airspace disease which may represent pneumonia or asymmetric edema. Reviewed, dictated and finalized at location A. Impression: 1: Asymmetric right-sided airspace disease which may represent pneumonia or asy mmetric edema.
--- NOTE | 2019-06-06 08:03 | ECG_ITS ---
Measurements Intervals [place] Rate: 86 P: [place]: 0 QRS: 105 QRSD: 114 T: 13 QT: 363 QTc: 434 Interpretive Statements ATRIAL FIBRILLATION RIGHT AXIS DEVIATION LOW QRS VOLTAGE IN PRECORDIAL LEADS INCOMPLETE RIGHT BUNDLE BRANCH BLOCK BORDERLINE ST-T WAVE ABNORMALITY- INFERIOR LEADS BASELINE ARTIFACT- I, II, III, AVR, AVL,A VF, V1-V6 ABNORMAL ECG Electronically Signed On 06-06-2019 8:15:33 CDT by Ever Giron D.O.
[2019-06-06] MEDS: IPRATROPIUM BR 0.02% INH SOLN 0.5 MG/2.5 ML VIAL INHALATION ×3 (08:08→20:00)
[2019-06-06] MEDS: ALBUTEROL SULFATE NEB 2.5 MG/0.5 ML INH 5 MG INHALATION ×3 (08:09→20:00)
--- NOTE | 2019-06-06 08:12 | ED.SOB ---
HPI - SOB/Dyspnea General Chief Complaint: Shortness of Breath/Dyspnea Stated Complaint: DIFFICULTY BREATHING Source: RN notes reviewed History of Present Illness HPI Narrative: Patient presents emergency department from home for shortness of breath. Patient states symptoms began last night. He states he began to progressively get more short of breath as well as a cough that is nonproductive. Patient states he has a history of COPD and CHF but is not currently on oxygen. When EMS arrived the patient was on 6 L nasal cannula. With increased work of breathing was placed on CPAP at that time patient was given Solu-Medrol 125 as well as breathing treatment. Patient denies any fevers or chills chest pain abdominal pain nausea vomiting or any other symptoms at this time. Related Data Home Medications Medication Instructions Recorded Confirmed furosemide 40 mg tablet 40 mg PO QAM 04/08/19 06/06/19 rosuvastatin 40 mg tablet 40 mg PO DAILY 04/08/19 06/06/19 finasteride [Proscar] 5 mg PO DAILY 04/12/19 06/06/19 potassium chloride [K-Tab] 20 meq PO DAILY 04/12/19 06/06/19 Allergies Allergy/AdvReac Type Severity Reaction Status Date / Time codeine Allergy Unknown Upset Verified 04/19/19 13:05 stomach Review of Systems Review of Systems: Narrative: Gen.: Denies fevers or chills ENT: Denies congestion Respiratory: See HPI CV: Denies chest pain or palpitations GI: Denies abdominal pain nausea, emesis or diarrhea Musculoskeletal: Denies back pain or muscle pain Neuro: Denies numbness, tingling, weakness or focal weakness Skin: Denies rash Except as documented, all other systems reviewed and negative [facility] Past Medical History Medical History Benign prostatic hyperplasia Chronic anemia Chronic atrial fibrillation Chronic kidney disease, stage 3 Baseline creatinine between 1.5 and 1.70. COPD (chronic obstructive pulmonary disease) I do not believe this is been officially diagnosed. Emphysema noted on imaging. Coronary artery disease With history of [place]. Patient has drug-eluting stent to OM and 2 drug-eluting stent to LAD placed in December 2016. Stress test 09/07/2018 showed no fixed or reversible deficits with an ejection fraction of 77%. Depression Diastolic congestive heart failure Echocardiogram 08/26/2018 showed diastolic dysfunction with an ejection fraction of 65% and moderate biatrial enlargement, mild MR, mild TR, mild TR, and mild aortic stenosis with a valve area of 1.9 centimeters squared. Hypokinetic segments of the left ventricle include basal anterior and mid anterior segment. Akinetic segments include the mid anteroseptal segment. Essential tremor History of CVA (cerebrovascular accident) without residual deficits Hypertension Impaired fasting glucose Lung cancer Status post partial left upper lobectomy in December 2012. Mixed hyperlipidemia Osteoarthritis Peripheral arterial disease With history of lower extremity angioplasty and stents as well as endovascular repair of abdominal aortic aneurysm. Pulmonary hypertension Echocardiogram August 26, 2018 showed an RVSP of 50 to 55 millimeters of mercury. Surgical History Surgical History History of aortic aneurysm repair Endovascular abdominal aortic aneurysm repair with right renal arterial balloon angioplasty and right common femoral artery graft in December 2013. History of excision of epidermal inclusion cyst From the chest wall. History of vascular surgery Bilateral external iliac artery angioplasty in October 2011. Also with right renal artery balloon angioplasty and right common femoral artery graft in December 2013 at the time of endovascular repair of abdominal aortic aneurysm. Status post coronary artery stent placement Drug-eluting stent to the OM and 2 drug-eluting stents to the LAD in December 2016. Status post lobectomy of lung Partial left upper
[2019-06-06 08:14] LABS: Basophils Absolute Auto 0.1 K/mm3 (0.0-0.1); Basophils Percent Auto 0.6 % (0.2-1.2); Eosinophils Absolute Auto 0.1 K/mm3 (0-0.3); Eosinophils Percent Auto 0.8 % (0-4.4); Hematocrit 39.1 % (42.0-52.0); Hemoglobin 12.1 g/dL (14.0-18.0); Immature Granulocyte Absolute 0.03 K/mm3 (0.00-0.031); Immature Granulocyte Percent A 0.3 % (0-0.5); Lymphocytes Absolute Auto 1.42 K/mm3 (0.9-3.2); Lymphocytes Percent Auto 16.2 % (18.3-44.2); Mean Corpuscular HGB Conc 30.9 g/dl (32-36); Mean Corpuscular Hemoglobin 28.9 pg (26-34); Mean Corpuscular Volume 93.5 fl (80-100); Mean Platelet Volume 10.4 fl (7.4-10.4); Monocytes Absolute Auto 0.5 K/mm3 (0.1-0.6); Monocytes Percent Auto 5.8 % (2.6-8.5); Neutrophils Absolute Auto 6.7 K/mm3 (1.3-6.7); Neutrophils Percent Auto 76.3 % (45.5-73.1); Platelet Count Result 194 k/mm3 (150-375); Red Blood Count 4.18 M/mm3 (4.6-6.20); Red Cell Distribution Width 14.5 % (11.5-14.5); White Blood Count 8.8 K/mm3 (4.5-10.0)
--- NOTE | 2019-06-06 08:14 | PC.NURSE ---
Called lab to add on PT INR PTT, CBC, and BNP.
[2019-06-06 08:21] LABS: Base Excess ABG -3.7 mEq/l (+/-2.0); Fractional Inspired Oxygen 70 %; HCO3 ABG 22.6 mEq/l (22.0-26.0); Oxygen Content ABG 18.1 %vol (16.0-22.0); Oxygen Saturation ABG 99.1 % (95.0-100.0); Oxyhemoglobin 98.1 % THb (90.0-100.0); PCO2 ABG 46.1 mmHg (35.0-45.0); PO2 ABG 176.5 mmHg (80.0-100.0); PO2 FiO2 Ratio Arterial Blood 2.52 %; Total Hemoglobin 12.9 g/dL (12.0-18.0); pH ABG 7.309 (7.350-7.450)
[2019-06-06 08:22] LABS: Device NON-INVASIVE VENT; Modified Allen's Test Pass; Site Drawn RIGHT RADIAL
[2019-06-06 08:23] LABS: Non-Invasive Expiratory Pressure 8 CMH2O; Non-Invasive Inspiratory Pressure 14 CMH2O; Non-Invasive Vent Rate 4 /MIN
[2019-06-06 08:27] LABS: INR 1.1; Partial Thromboplastin Time 24.5 SECONDS (22.3-36.8); Prothrombin Time 13.7 Seconds (11.1-14.7)
[2019-06-06 08:29] LABS: Alanine Aminotransferase 12 U/L (4-50); Albumin Level 4.3 g/dL (3.5-5.1); Alkaline Phosphatase 124 U/L (38-126); Aspartate Amino Transferase 19 U/L (17-59); Bilirubin,Total 0.8 mg/dL (0.2-1.3); Blood Urea Nitrogen 21 mg/dL (9-20); Calcium 8.7 mg/dL (8.4-10.2); Carbon Dioxide 28 mmol/L (22-30); Chloride 102 mmol/L (98-107); Estimated Glomerular Filt Rate 49; Glucose 159 mg/dL (75-110); Potassium 4.7 mmol/L (3.4-5.0); Sodium 141 mmol/L (137-145)
[2019-06-06 08:41] LABS: Troponin I < 0.012 ng/mL (0.000-0.034)
[2019-06-06 08:45] LABS: NT Pro B Type Natriuretic Pept 4670 PG/ML (5-100)
--- NOTE | 2019-06-06 09:47 | PM.IMHP ---
H&P: HPI History of Present Illness Chief complaint: Acute respiratory failure with hypoxia/community a Narrative: Trent Swartz is a 74 year old male was in his usual state health until about 5 days ago. He developed a wet sounding cough but was unable to cough anything. He did not notice shortness of breath fevers chills sweats or chest discomfort. He had not traveled recently nor anti been exposed ill individuals. However on June 04 about 10:00 p.m. he became acutely more short of breath. Again no associated fevers chills or chest pain or rigors. He did note however that his feet were a bit swollen. EMS was summoned and on the morning of June 05 and he was brought to the emergency department for further evaluation. He does not over options home. With application of oxygen at 6 L and BiPAP mask he is feeling much better. He has also received IV steroids and nebulized bronchodilators. He was hospitalized in March of this year for acute on chronic diastolic congestive heart failure. Review of Systems Review of Systems: All systems reviewed & are unremarkable except as noted in HPI and below PMFSH Past Medical History Medical History Benign prostatic hyperplasia Chronic anemia Chronic atrial fibrillation Chronic kidney disease, stage 3 Baseline creatinine between 1.5 and 1.70. COPD (chronic obstructive pulmonary disease) I do not believe this is been officially diagnosed. Emphysema noted on imaging. Coronary artery disease With history of [place]. Patient has drug-eluting stent to OM and 2 drug-eluting stent to LAD placed in December 2016. Stress test 09/07/2018 showed no fixed or reversible deficits with an ejection fraction of 77%. Depression Diastolic congestive heart failure Echocardiogram 08/26/2018 showed diastolic dysfunction with an ejection fraction of 65% and moderate biatrial enlargement, mild MR, mild TR, mild TR, and mild aortic stenosis with a valve area of 1.9 centimeters squared. Hypokinetic segments of the left ventricle include basal anterior and mid anterior segment. Akinetic segments include the mid anteroseptal segment. Essential tremor History of CVA (cerebrovascular accident) without residual deficits Hypertension Impaired fasting glucose Lung cancer Status post partial left upper lobectomy in December 2012. Mixed hyperlipidemia Osteoarthritis Peripheral arterial disease With history of lower extremity angioplasty and stents as well as endovascular repair of abdominal aortic aneurysm. Pulmonary hypertension Echocardiogram August 26, 2018 showed an RVSP of 50 to 55 millimeters of mercury. Surgical History Surgical History History of aortic aneurysm repair Endovascular abdominal aortic aneurysm repair with right renal arterial balloon angioplasty and right common femoral artery graft in December 2013. History of excision of epidermal inclusion cyst From the chest wall. History of vascular surgery Bilateral external iliac artery angioplasty in October 2011. Also with right renal artery balloon angioplasty and right common femoral artery graft in December 2013 at the time of endovascular repair of abdominal aortic aneurysm. Status post coronary artery stent placement Drug-eluting stent to the OM and 2 drug-eluting stents to the LAD in December 2016. Status post lobectomy of lung Partial left upper lobe lobectomy in December 2012 for lung cancer. Family History Family History Mother Cerebrovascular accident Patient's mother is Family history of cardiovascular disease Diabetes mellitus Father Carcinoma of colon Patient's father is Sibling Acute myocardial infarction from [place] at 44. Social History Social History (Updated 06/06/19 @ 10:03 by Ben Rodríguez MD) Social History: The patient lives in [facility]
[2019-06-06] MEDS: FUROSEMIDE INJ 40 MG/4 ML VIAL IV PUSH (10:00)
--- NOTE | 2019-06-06 10:50 | ADMGEN ---
This patient, Trent Swartz, was admitted to IMU Room 209-. Patient/family oriented to hospital policies and general routines including ID bracelet, bed and alarms, visiting hours, pain management, procedures, bathroom and other care routines, personal items, smoking policy, room service/diet, and visiting hours. Valuables list has been completed. Information on how to activate the Rapid Response Team has been discussed. Patient/Family are encouraged to report perceived risks to care and to ask questions if they do not understand what they are told or what they should do.
[2019-06-06] MEDS: methylPREDNISolone SOD SUCC 125 MG VIAL 60 MG IV PUSH ×3 (11:04→23:48)
[2019-06-06 12:15] LABS: Glucose Point of Care 145 (65-105)
[2019-06-06 12:57] LABS: Troponin I 0.062 ng/mL (0.000-0.034)
[2019-06-06 16:15] LABS: Glucose Point of Care 176 (65-105)
[2019-06-06 17:13] LABS: Troponin I 0.059 ng/mL (0.000-0.034)
[2019-06-06 20:45] LABS: Glucose Point of Care 227 (65-105)
[2019-06-07] VITALS (19 sets, daily range): BP systolic 116–163; BP diastolic 48–77; PULSE 70–108; RESP 16–22; TEMP 36.4–36.8; O2SAT 96–99
[2019-06-07] MEDS: IPRATROPIUM BR 0.02% INH SOLN 0.5 MG/2.5 ML VIAL INHALATION ×3 (02:10→14:46)
[2019-06-07] MEDS: ALBUTEROL SULFATE NEB 2.5 MG/0.5 ML INH 5 MG INHALATION ×3 (02:10→14:45)
[2019-06-07 04:49] LABS: Basophils Percent Auto 0.1 % (0.2-1.2); Hematocrit 34.4 % (42.0-52.0); Hemoglobin 10.9 g/dL (14.0-18.0); Immature Granulocyte Absolute 0.03 K/mm3 (0.00-0.031); Immature Granulocyte Percent A 0.3 % (0-0.5); Immature Reticulocyte Fraction 28.7 % (3.0-15.9); Lymphocytes Absolute Auto 0.66 K/mm3 (0.9-3.2); Lymphocytes Percent Auto 6.2 % (18.3-44.2); Mean Corpuscular HGB Conc 31.7 g/dl (32-36); Mean Corpuscular Hemoglobin 28.8 pg (26-34); Mean Corpuscular Volume 90.8 fl (80-100); Monocytes Absolute Auto 0.1 K/mm3 (0.1-0.6); Monocytes Percent Auto 1.2 % (2.6-8.5); Neutrophils Absolute Auto 9.8 K/mm3 (1.3-6.7); Neutrophils Percent Auto 92.2 % (45.5-73.1); Platelet Count Result 179 k/mm3 (150-375); Red Blood Count 3.79 M/mm3 (4.6-6.20); Red Cell Distribution Width 14.4 % (11.5-14.5); Reticulocyte Hemoglobin Conten 32.2 pg (28.2-35.7); Reticulocyte Percent 2.31 % (0.7-4.3); Reticulocytes Absolute 0.09 B/L (32.2-175.7); White Blood Count 10.7 K/mm3 (4.5-10.0)
[2019-06-07 05:18] LABS: Blood Urea Nitrogen 33 mg/dL (9-20); Calcium 8.5 mg/dL (8.4-10.2); Carbon Dioxide 26 mmol/L (22-30); Chloride 95 mmol/L (98-107); Estimated CRCL calculation 38 ml/min; Estimated Glomerular Filt Rate 42; Glucose 171 mg/dL (75-110); Potassium 4.5 mmol/L (3.4-5.0); Sodium 134 mmol/L (137-145)
[2019-06-07 05:25] LABS: Hemoglobin A1C 6.4 % (<5.7)
[2019-06-07 05:36] LABS: Iron 66 ug/dL (49-181)
[2019-06-07 05:46] LABS: Percent Iron Saturation 17 % (20-50)
[2019-06-07 06:11] LABS: Folic Acid 5.3 ng/mL (2.76->20)
[2019-06-07] MEDS: methylPREDNISolone SOD SUCC 125 MG VIAL 60 MG IV PUSH ×3 (06:34→17:57)
[2019-06-07 08:34] LABS: Glucose Point of Care 201 (65-105)
[2019-06-07] MEDS: ROSUVASTATIN 10 MG TABLET 40 MG PO (12:39)
[2019-06-07] MEDS: FUROSEMIDE 40 MG TABLET PO (12:39)
[2019-06-07] MEDS: POTASSIUM CHLORIDE 20 MEQ TABLET.ER PO (12:39)
[2019-06-07] MEDS: FINASTERIDE 5 MG TABLET PO (12:39)
[2019-06-07] MEDS: TAMSULOSIN HCL 0.4 MG CAPSULE PO (12:39)
[2019-06-07] MEDS: PROPRANOLOL HCL 40 MG TABLET PO ×2 (12:40→21:16)
[2019-06-07] MEDS: ASPIRIN 81 MG ENTERIC TABLET PO (12:40)
[2019-06-07] MEDS: ENOXAPARIN 40 MG/0.4 ML SYRINGE SUB-Q (12:40)
[2019-06-07 17:10] LABS: Glucose Point of Care 224 (65-105)
--- NOTE | 2019-06-07 17:38 | P.PNIM_ITS ---
Progress Note: A&P Assessment and Plan (1) CAP (community acquired pneumonia): Qualifiers: Laterality: right Lung location: lower lobe of lung Qualified Code(s): J18.9 - Pneumonia, unspecified organism Code(s): J18.9 - Pneumonia, unspecified organism Status: Acute Assessment and Plan: * Ceftriaxone and azithromycin D #2 * Nebulized bronchodilators * Steroids * Pulmonary toilet * He will require follow-up imaging until infiltrate clears (2) COPD (chronic obstructive pulmonary disease): Qualifiers: COPD type: unspecified COPD Qualified Code(s): J44.9 - Chronic obstructive pulmonary disease, unspecified Code(s): J44.9 - Chronic obstructive pulmonary disease, unspecified Status: Acute Assessment and Plan: * Oxygen, BiPAP, steroids(start taper), bronchodilators, pulmonary toilet (3) Diastolic congestive heart failure: Qualifiers: Heart failure chronicity: chronic Qualified Code(s): I50.32 - Chronic diastolic (congestive) heart failure Code(s): I50.30 - Unspecified diastolic (congestive) heart failure Status: Acute Assessment and Plan: * IV furosemide 40 mg x 1 * Monitor volume status * Continue home regimen including p.o. Lasix 06/06 (4) Chronic atrial fibrillation: Code(s): I48.20 - Chronic atrial fibrillation, unspecified Status: Acute Assessment and Plan: * Continue home regimen with propanolol for rate control. No anticoagulation with history of GI bleed (5) Pulmonary hypertension: Code(s): I27.20 - Pulmonary hypertension, unspecified Status: Acute Assessment and Plan: * Secondary to COPD and congestive heart failure and mitral insufficiency * Continue home regimen (6) Mitral regurgitation: Qualifiers: Cardiac valve disease etiology: nonrheumatic Qualified Code(s): I34.0 - Nonrheumatic mitral (valve) insufficiency Code(s): I34.0 - Nonrheumatic mitral (valve) insufficiency Status: Acute Assessment and Plan: * Follow-up as outpatient with Cardiology (7) Coronary artery disease: Qualifiers: Coronary Disease-Associated Artery/Lesion type: [place] artery [place] vs. transplanted heart: [place] heart Associated angina: without angina Qualified Code(s): I25.10 - Atherosclerotic heart disease of [place] coronary artery without angina pectoris Code(s): I25.10 - Atherosclerotic heart disease of [place] coronary artery without angina pectoris Status: Acute Assessment and Plan: * Currently without anginal symptoms continue aspirin, statin, and beta-chino (8) Impaired fasting glucose: Code(s): R73.01 - Impaired fasting glucose Status: Acute Assessment and Plan: * A1c 6 4. Taper steroid rapidly (9) Chronic kidney disease, stage 3: Code(s): N18.3 - Chronic kidney disease, stage 3 (moderate) Status: Acute Assessment and Plan: * Creatinine 1.6 at baseline Subjective Date/time seen: 06/07/19 17:38 Interval history: Date of visit 06/06. 74-year-old white male with chronic renal failure stage 3 atrial fibrillation and history of diastolic heart failure with history of coronary disease admitted with increasing cough shortness of breath found to have right lower lobe infiltrate. On BiPAP overnight feels much better now. Less cough and shortness of breath. No chest pain. Exam Narrative: Exam Narrative: Blood pressure 124/60 pulse is 70 saturating 96% on 2 L Pupil equal reactive to light sclera anicteric Lungs very fa
--- NOTE | 2019-06-07 17:38 | PM.IMPN ---
Progress Note: A&P Assessment and Plan (1) CAP (community acquired pneumonia): Qualifiers: Laterality: right Lung location: lower lobe of lung Qualified Code(s): J18.9 - Pneumonia, unspecified organism Code(s): J18.9 - Pneumonia, unspecified organism Status: Acute Assessment and Plan: Ceftriaxone and azithromycin D #2 Nebulized bronchodilators Steroids Pulmonary toilet He will require follow-up imaging until infiltrate clears (2) COPD (chronic obstructive pulmonary disease): Qualifiers: COPD type: unspecified COPD Qualified Code(s): J44.9 - Chronic obstructive pulmonary disease, unspecified Code(s): J44.9 - Chronic obstructive pulmonary disease, unspecified Status: Acute Assessment and Plan: Oxygen, BiPAP, steroids(start taper), bronchodilators, pulmonary toilet (3) Diastolic congestive heart failure: Qualifiers: Heart failure chronicity: chronic Qualified Code(s): I50.32 - Chronic diastolic (congestive) heart failure Code(s): I50.30 - Unspecified diastolic (congestive) heart failure Status: Acute Assessment and Plan: IV furosemide 40 mg x 1 Monitor volume status Continue home regimen including p.o. Lasix 06/06 (4) Chronic atrial fibrillation: Code(s): I48.20 - Chronic atrial fibrillation, unspecified Status: Acute Assessment and Plan: Continue home regimen with propanolol for rate control. No anticoagulation with history of GI bleed (5) Pulmonary hypertension: Code(s): I27.20 - Pulmonary hypertension, unspecified Status: Acute Assessment and Plan: Secondary to COPD and congestive heart failure and mitral insufficiency Continue home regimen (6) Mitral regurgitation: Qualifiers: Cardiac valve disease etiology: nonrheumatic Qualified Code(s): I34.0 - Nonrheumatic mitral (valve) insufficiency Code(s): I34.0 - Nonrheumatic mitral (valve) insufficiency Status: Acute Assessment and Plan: Follow-up as outpatient with Cardiology (7) Coronary artery disease: Qualifiers: Coronary Disease-Associated Artery/Lesion type: [place] artery [place] vs. transplanted heart: [place] heart Associated angina: without angina Qualified Code(s): I25.10 - Atherosclerotic heart disease of [place] coronary artery without angina pectoris Code(s): I25.10 - Atherosclerotic heart disease of [place] coronary artery without angina pectoris Status: Acute Assessment and Plan: Currently without anginal symptoms continue aspirin, statin, and beta-chino (8) Impaired fasting glucose: Code(s): R73.01 - Impaired fasting glucose Status: Acute Assessment and Plan: A1c 6 4. Taper steroid rapidly (9) Chronic kidney disease, stage 3: Code(s): N18.3 - Chronic kidney disease, stage 3 (moderate) Status: Acute Assessment and Plan: Creatinine 1.6 at baseline Subjective Date/time seen: 06/07/19 17:38 Interval history: Date of visit 06/06. 74-year-old white male with chronic renal failure stage 3 atrial fibrillation and history of diastolic heart failure with history of coronary disease admitted with increasing cough shortness of breath found to have right lower lobe infiltrate. On BiPAP overnight feels much better now. Less cough and shortness of breath. No chest pain. Exam Narrative: Exam Narrative: Blood pressure 124/60 pulse is 70 saturating 96% on 2 L Pupil equal reactive to light sclera anicteric Lungs very faint crackle if any right lower base distant breath sounds CV irregular I hear no murmur Abdomen soft nontender Extremities without edema warm Neuro alert pleasant cooperative no focal deficits Objective Data Vital Signs Vital Signs: Vital Signs - 24 hr 06/06/19 17:49 06/06/19 17:54 06/06/19 19:36 Temperature 36.1 C L Pulse Rate 87 80 85 Respiratory Rate 18 16 Blood Pressure 136/81
[2019-06-07] MEDS: INSULIN ASPART (*BKC) 100 UNITS/ML SUB-Q (17:51)
--- NOTE | 2019-06-07 20:10 | PC.NURSE ---
pt transferred to [facility]- at 2009. Report given to GREG Montoya at 1955. Belonging sent with pt.
--- NOTE | 2019-06-07 20:34 | PC.NURSE ---
This patient, Trent Swartz, was received from [[id number] ] on 06/07/19 at 2009. Personal belongings list checked and signed. Patient/family oriented to unit policies and routines
--- NOTE | 2019-06-07 20:40 | PC.NURSE ---
Patient stated that he has contacted his Milana and let her know that he has changed rooms.
--- NOTE | 2019-06-07 22:34 | PCRCNOTE ---
Window of time for administration has passed. See next scheduled administration.
[2019-06-08] VITALS (14 sets, daily range): BP systolic 119–135; BP diastolic 49–79; PULSE 65–84; RESP 18–20; TEMP 36.4–36.7; O2SAT 93–97
[2019-06-08] MEDS: IPRATROPIUM BR 0.02% INH SOLN 0.5 MG/2.5 ML VIAL INHALATION ×4 (02:11→20:22)
[2019-06-08] MEDS: ALBUTEROL SULFATE NEB 2.5 MG/0.5 ML INH 5 MG INHALATION ×4 (02:11→20:20)
[2019-06-08 06:44] LABS: Blood Urea Nitrogen 47 mg/dL (9-20); Calcium 8.5 mg/dL (8.4-10.2); Carbon Dioxide 27 mmol/L (22-30); Chloride 94 mmol/L (98-107); Estimated CRCL calculation 39 ml/min; Estimated Glomerular Filt Rate 42; Glucose 151 mg/dL (75-110); Potassium 3.3 mmol/L (3.4-5.0); Sodium 138 mmol/L (137-145)
[2019-06-08] MEDS: TAMSULOSIN HCL 0.4 MG CAPSULE PO (11:24)
[2019-06-08] MEDS: FUROSEMIDE 40 MG TABLET PO (11:25)
[2019-06-08] MEDS: ASPIRIN 81 MG ENTERIC TABLET PO (11:25)
[2019-06-08] MEDS: PROPRANOLOL HCL 40 MG TABLET PO ×2 (11:25→21:26)
[2019-06-08] MEDS: ROSUVASTATIN 10 MG TABLET 40 MG PO (11:26)
[2019-06-08] MEDS: POTASSIUM CHLORIDE 20 MEQ TABLET 40 MEQ PO (11:27)
[2019-06-08] MEDS: POTASSIUM CHLORIDE 20 MEQ TABLET.ER PO (11:28)
[2019-06-08] MEDS: FINASTERIDE 5 MG TABLET PO (11:28)
[2019-06-08] MEDS: ENOXAPARIN 40 MG/0.4 ML SYRINGE SUB-Q (11:32)
[2019-06-08] MEDS: INSULIN ASPART (*BKC) 100 UNITS/ML SUB-Q (12:55)
[2019-06-08 13:01] LABS: Glucose Point of Care 222 (65-105)
--- NOTE | 2019-06-08 16:23 | P.PNIM_ITS ---
Progress Note: A&P Assessment and Plan (1) CAP (community acquired pneumonia): Qualifiers: Laterality: right Lung location: lower lobe of lung Qualified Code(s): J18.9 - Pneumonia, unspecified organism Code(s): J18.9 - Pneumonia, unspecified organism Status: Acute Assessment and Plan: * Ceftriaxone and azithromycin D #3 * Nebulized bronchodilators * Steroids stopped pm 06/06 * Pulmonary toilet * He will require follow-up imaging until infiltrate clears (2) COPD (chronic obstructive pulmonary disease): Qualifiers: COPD type: unspecified COPD Qualified Code(s): J44.9 - Chronic obstructive pulmonary disease, unspecified Code(s): J44.9 - Chronic obstructive pulmonary disease, unspecified Status: Acute Assessment and Plan: * Oxygen, BiPAp, bronchodilators, pulmonary toilet (3) Diastolic congestive heart failure: Qualifiers: Heart failure chronicity: chronic Qualified Code(s): I50.32 - Chronic diastolic (congestive) heart failure Code(s): I50.30 - Unspecified diastolic (congestive) heart failure Status: Acute Assessment and Plan: * IV furosemide 40 mg x 1 * Monitor volume status * Continue home regimen including p.o. Lasix 06/06 (4) Chronic atrial fibrillation: Code(s): I48.20 - Chronic atrial fibrillation, unspecified Status: Acute Assessment and Plan: * Continue home regimen with propanolol for rate control. No anticoagulation with history of GI bleed (5) Pulmonary hypertension: Code(s): I27.20 - Pulmonary hypertension, unspecified Status: Acute Assessment and Plan: * Secondary to COPD and congestive heart failure and mitral insufficiency * Continue home regimen (6) Mitral regurgitation: Qualifiers: Cardiac valve disease etiology: nonrheumatic Qualified Code(s): I34.0 - Nonrheumatic mitral (valve) insufficiency Code(s): I34.0 - Nonrheumatic mitral (valve) insufficiency Status: Acute Assessment and Plan: * Follow-up as outpatient with Cardiology (7) Coronary artery disease: Qualifiers: Associated angina: without angina Coronary Disease-Associated Artery/Lesion type: [place] artery [place] vs. transplanted heart: [place] heart Qualified Code(s): I25.10 - Atherosclerotic heart disease of [place] coronary artery without angina pectoris Code(s): I25.10 - Atherosclerotic heart disease of [place] coronary artery without angina pectoris Status: Acute Assessment and Plan: * Currently without anginal symptoms continue aspirin, statin, and beta-chino (8) Impaired fasting glucose: Code(s): R73.01 - Impaired fasting glucose Status: Acute Assessment and Plan: * A1c 6 4. Taper steroid rapidly and d/c with no bronchospasm (9) Chronic kidney disease, stage 3: Code(s): N18.3 - Chronic kidney disease, stage 3 (moderate) Status: Acute Assessment and Plan: * Creatinine 1.6 still at baseline Subjective Date/time seen: 06/08/19 16:23 Interval history: Date of visit 06/07. 74-year-old white male with chronic renal failure stage 3 atrial fibrillation and history of diastolic heart failure with history of coronary disease admitted with increasing cough shortness of breath found to have right lower lobe infiltrate. On BiPAP first night much better now on room air. Less cough and shortness of breath. No chest pain. Exam Narrative: Exam Narrative: Blood pressure 134/64 pulse is 70 saturating 94% on RA Pupil equal reactive to light s
--- NOTE | 2019-06-08 16:23 | PM.IMPN ---
Progress Note: A&P Assessment and Plan (1) CAP (community acquired pneumonia): Qualifiers: Laterality: right Lung location: lower lobe of lung Qualified Code(s): J18.9 - Pneumonia, unspecified organism Code(s): J18.9 - Pneumonia, unspecified organism Status: Acute Assessment and Plan: Ceftriaxone and azithromycin D #3 Nebulized bronchodilators Steroids stopped pm 3 Pulmonary toilet He will require follow-up imaging until infiltrate clears (2) COPD (chronic obstructive pulmonary disease): Qualifiers: COPD type: unspecified COPD Qualified Code(s): J44.9 - Chronic obstructive pulmonary disease, unspecified Code(s): J44.9 - Chronic obstructive pulmonary disease, unspecified Status: Acute Assessment and Plan: Oxygen, BiPAp, bronchodilators, pulmonary toilet (3) Diastolic congestive heart failure: Qualifiers: Heart failure chronicity: chronic Qualified Code(s): I50.32 - Chronic diastolic (congestive) heart failure Code(s): I50.30 - Unspecified diastolic (congestive) heart failure Status: Acute Assessment and Plan: IV furosemide 40 mg x 1 Monitor volume status Continue home regimen including p.o. Lasix 06/06 (4) Chronic atrial fibrillation: Code(s): I48.20 - Chronic atrial fibrillation, unspecified Status: Acute Assessment and Plan: Continue home regimen with propanolol for rate control. No anticoagulation with history of GI bleed (5) Pulmonary hypertension: Code(s): I27.20 - Pulmonary hypertension, unspecified Status: Acute Assessment and Plan: Secondary to COPD and congestive heart failure and mitral insufficiency Continue home regimen (6) Mitral regurgitation: Qualifiers: Cardiac valve disease etiology: nonrheumatic Qualified Code(s): I34.0 - Nonrheumatic mitral (valve) insufficiency Code(s): I34.0 - Nonrheumatic mitral (valve) insufficiency Status: Acute Assessment and Plan: Follow-up as outpatient with Cardiology (7) Coronary artery disease: Qualifiers: Associated angina: without angina Coronary Disease-Associated Artery/Lesion type: [place] artery [place] vs. transplanted heart: [place] heart Qualified Code(s): I25.10 - Atherosclerotic heart disease of [place] coronary artery without angina pectoris Code(s): I25.10 - Atherosclerotic heart disease of [place] coronary artery without angina pectoris Status: Acute Assessment and Plan: Currently without anginal symptoms continue aspirin, statin, and beta-chino (8) Impaired fasting glucose: Code(s): R73.01 - Impaired fasting glucose Status: Acute Assessment and Plan: A1c 6 4. Taper steroid rapidly and d/c with no bronchospasm (9) Chronic kidney disease, stage 3: Code(s): N18.3 - Chronic kidney disease, stage 3 (moderate) Status: Acute Assessment and Plan: Creatinine 1.6 still at baseline Subjective Date/time seen: 06/08/19 16:23 Interval history: Date of visit 06/07. 74-year-old white male with chronic renal failure stage 3 atrial fibrillation and history of diastolic heart failure with history of coronary disease admitted with increasing cough shortness of breath found to have right lower lobe infiltrate. On BiPAP first night much better now on room air. Less cough and shortness of breath. No chest pain. Exam Narrative: Exam Narrative: Blood pressure 134/64 pulse is 70 saturating 94% on RA Pupil equal reactive to light sclera anicteric Lungs distant breath sounds and hear no crackle today CV irregular I hear no murmur Abdomen soft nontender Extremities without edema warm Neuro alert pleasant cooperative no focal deficits Objective Data Vital Signs Vital Signs: Vital Signs - 24 hr 06/07/19 18:37 06/07/19 21:16 06/07/19 22:11 Temperature 36.4 C L Pulse Rate 70 76 Respiratory Rate 22 H Blood Pr
[2019-06-08 17:20] LABS: Glucose Point of Care 122 (65-105)
[2019-06-08 21:34] LABS: Glucose Point of Care 134 (65-105)
[2019-06-09] MEDS: ALBUTEROL SULFATE NEB 2.5 MG/0.5 ML INH 5 MG INHALATION ×2 (02:57→08:15)
[2019-06-09] MEDS: IPRATROPIUM BR 0.02% INH SOLN 0.5 MG/2.5 ML VIAL INHALATION ×2 (02:58→08:15)
[2019-06-09 02:59] VITALS: PULSE 71; RESP 18
[2019-06-09 03:09] VITALS: PULSE 75; RESP 18
[2019-06-09 06:00] VITALS: BP 104/57; PULSE 64; RESP 16; TEMP 36.2; O2SAT 96
[2019-06-09 07:04] LABS: Blood Urea Nitrogen 51 mg/dL (9-20); Calcium 8.2 mg/dL (8.4-10.2); Carbon Dioxide 29 mmol/L (22-30); Chloride 91 mmol/L (98-107); Estimated CRCL calculation 41 ml/min; Estimated Glomerular Filt Rate 46; Glucose 132 mg/dL (75-110); Potassium 3.8 mmol/L (3.4-5.0); Sodium 132 mmol/L (137-145)
[2019-06-09 08:00] VITALS: PULSE 68; RESP 18; O2SAT 96
[2019-06-09 08:15] VITALS: PULSE 65; RESP 18
[2019-06-09 08:25] VITALS: PULSE 68; RESP 18
[2019-06-09] MEDS: FINASTERIDE 5 MG TABLET PO (08:27)
[2019-06-09] MEDS: TAMSULOSIN HCL 0.4 MG CAPSULE PO (08:27)
[2019-06-09] MEDS: ENOXAPARIN 40 MG/0.4 ML SYRINGE SUB-Q (08:27)
[2019-06-09] MEDS: FUROSEMIDE 40 MG TABLET PO (08:28)
[2019-06-09] MEDS: POTASSIUM CHLORIDE 20 MEQ TABLET.ER PO (08:28)
[2019-06-09] MEDS: ASPIRIN 81 MG ENTERIC TABLET PO (08:28)
[2019-06-09] MEDS: PROPRANOLOL HCL 40 MG TABLET PO (08:29)
[2019-06-09] MEDS: ROSUVASTATIN 10 MG TABLET 40 MG PO (08:29)
--- NOTE | 2019-06-09 18:03 | PM.DS ---
DS: Diagnosis Admitting Diagnosis Admitting Diagnosis: Pneumonia, unspecified organism Discharge Diagnosis (1) CAP (community acquired pneumonia): Qualifiers: Laterality: right Lung location: lower lobe of lung Qualified Code(s): J18.9 - Pneumonia, unspecified organism Code(s): J18.9 - Pneumonia, unspecified organism Status: Acute Assessment and Plan: 4 day course Ceftriaxone and azithromycin while here and equivalent of 4 more days of levafloxacin on d/c 750 mg q 48 h Nebulized bronchodilators Steroids stopped pm 06/06 with no bronchospasm and increase blood sugar He will require follow-up imaging until infiltrate clears Blood cultures were no growth and influenza swab was negative (2) COPD (chronic obstructive pulmonary disease): Qualifiers: COPD type: unspecified COPD Qualified Code(s): J44.9 - Chronic obstructive pulmonary disease, unspecified Code(s): J44.9 - Chronic obstructive pulmonary disease, unspecified Status: Acute Assessment and Plan: Oxygen, BiPAp, bronchodilators, pulmonary toilet and patient responded quickly (3) Diastolic congestive heart failure: Qualifiers: Heart failure chronicity: chronic Qualified Code(s): I50.32 - Chronic diastolic (congestive) heart failure Code(s): I50.30 - Unspecified diastolic (congestive) heart failure Status: Acute Assessment and Plan: IV furosemide 40 mg x 1 Monitor volume status Continue home regimen including p.o. Lasix /10 Compensated and euvolemic at the time of discharge (4) Chronic atrial fibrillation: Code(s): I48.20 - Chronic atrial fibrillation, unspecified Status: Acute Assessment and Plan: Continue home regimen with propanolol for rate control. No anticoagulation with history of GI bleed (5) Coronary artery disease: Qualifiers: Coronary Disease-Associated Artery/Lesion type: [place] artery [place] vs. transplanted heart: [place] heart Associated angina: without angina Qualified Code(s): I25.10 - Atherosclerotic heart disease of [place] coronary artery without angina pectoris Code(s): I25.10 - Atherosclerotic heart disease of [place] coronary artery without angina pectoris Status: Acute Assessment and Plan: Currently without anginal symptoms continue aspirin, statin, and beta-chino (6) Impaired fasting glucose: Code(s): R73.01 - Impaired fasting glucose Status: Acute Assessment and Plan: A1c 6 4. Taper steroid rapidly and d/c with no bronchospasm FBS 132 the day of discharge (7) Chronic kidney disease, stage 3: Code(s): N18.3 - Chronic kidney disease, stage 3 (moderate) Status: Acute Assessment and Plan: Creatinine 1.5 still at baseline the day of discharge DS: Summary Hospital Course Hospital Course: 74-year-old white male with known diastolic heart failure and chronic AFib and coronary disease admitted with cough fever malaise. Found to have right lower lobe infiltrate and treated with ceftriaxone and azithromycin. Discharged on 4 more days of levofloxacin on discharge with 750 p.o. Q 48 hours with his renal insufficiency. He will follow-up with his primary care for repeat chest x-ray in the future At discharge she was up and about feeling much better taken a diet well. Time Spent with Patient Time attestation: Total time spent providing and/or coordinating discharge services: 35 minutes Exam Narrative: Exam Narrative: Condition on discharge Blood pressure 110/60 pulse is 64 saturating 96% on room air afebrile Lungs clear CV irregular no murmurs or gallops Abdomen is soft nontender Extremities without edema distal pulses 1+ Neuro alert pleasant cooperative no focal deficits He was up taken a diet well and will be discharged home DS: Data Data Completed and Pending Labs on day of discharge: Labs from last 24 hours 06/09/19 06/08/19 06:00 21:21
== END 2019-06-09 12:19 | disposition home or self-care (01) | DRG 194 ==
LOC: ANHED 09:26 → ANHIMU 10:09 → ANH3MEDSUR 06-09 11:15 → ANHIMU 06-13 14:23
PROVIDERS: Admitting Provider Internal Medicine; Emergency Provider Emergency Medicine; PCP Student in an Organized Health Care Education/Training Program; Visit Provider Internal Medicine
DX: J18.9 Pneumonia, unspecified organism (principal); I50.32 Chronic diastolic (congestive) heart failure; I48.20 Chronic atrial fibrillation, unspecified; I27.20 Pulmonary hypertension, unspecified; I34.0 Nonrheumatic mitral (valve) insufficiency; I25.10 Atherosclerotic heart disease of native coronary artery without angina pectoris; R73.01 Impaired fasting glucose; I11.0 Hypertensive heart disease with heart failure; N18.3 Chronic kidney disease, stage 3 (moderate); D64.9 Anemia, unspecified; N40.0 Benign prostatic hyperplasia without lower urinary tract symptoms; J43.9 Emphysema, unspecified; I25.2 Old myocardial infarction; F32.9 Major depressive disorder, single episode, unspecified; G25.0 Essential tremor; Z86.73 Personal history of transient ischemic attack (TIA), and cerebral infarction without residual deficits; Z85.118 Personal history of other malignant neoplasm of bronchus and lung; Z90.2 Acquired absence of lung [part of]; E78.2 Mixed hyperlipidemia; M19.90 Unspecified osteoarthritis, unspecified site; I73.9 Peripheral vascular disease, unspecified; Z95.820 Peripheral vascular angioplasty status with implants and grafts
CPT/HCPCS: 36415; 36600; 71045; 80048; 80053; 82607; 82746; 82805; 83036; 83540; 83550; 83605; 83880; 84443; 84484; 85025; 85046; 85610; 85730; 87040; 87804; 93005; 94640; 96365; 96367; 96375; 99291; A9270; J0696; J1650; J1815; J1940; J1956; J2930

== ENCOUNTER 2019-09-20 23:29 | Emergency (ER) | payer OTHER, SELFPAY ==
--- NOTE | ~2019-09-20 | XR_ITS ---
EXAMINATION: XR chest 2V DATE: 09/21/2019 00:14 INDICATION: Shortness of breath TECHNIQUE: frontal and lateral views of the chest were obtained. COMPARISON: Chest radiograph dated 06/06/2019 FINDINGS: Increased lucency and architectural distortion at the apices of lungs consistent with emphysema. No o ther airspace opacities, pulmonary edema, pleural effusion or pneumothorax. The cardiomediastinal [place] is normal. IMPRESSION: 1. Emphysema. No acute cardiopulmonary disease. Reviewed, dictated and finalized at location A.
[2019-09-20 23:26] VITALS: BP 154/86; PULSE 67; RESP 22; TEMP 36.4; O2SAT 96
--- NOTE | 2019-09-20 23:38 | ECG_ITS ---
Measurements Intervals [place] Rate: 62 P: DC: 0 QRS: 90 QRSD: 118 T: 21 QT: 419 QTc: 428 Interpretive Statements ATRIAL FIBRILLATION LOW QRS VOLTAGE IN PRECORDIAL LEADS INCOMPLETE RIGHT BUNDLE BRANCH BLOCK BASELINE WANDER- I, III, AVR, AVL, AVF, V4-V6 ABNORMAL ECG Electronically Signed On 09-21-2019 7:44:41 CDT by Ever Giron D.O.
[2019-09-20 23:52] VITALS: O2SAT 96
[2019-09-21 00:03] VITALS: PULSE 71
[2019-09-21 00:20] LABS: Blood Urea Nitrogen 17 mg/dL (9-20); Calcium 8.9 mg/dL (8.4-10.2); Carbon Dioxide 30 mmol/L (22-30); Chloride 97 mmol/L (98-107); Estimated CRCL calculation 47 ml/min; Estimated Glomerular Filt Rate 54; Glucose 97 mg/dL (75-110); Potassium 4.1 mmol/L (3.4-5.0); Sodium 136 mmol/L (137-145)
[2019-09-21 00:27] LABS: Basophils Percent Auto 0.6 % (0.2-1.2); Eosinophils Absolute Auto 0.1 K/mm3 (0-0.3); Eosinophils Percent Auto 1.9 % (0-4.4); Hematocrit 38.8 % (42.0-52.0); Hemoglobin 12.2 g/dL (14.0-18.0); Immature Granulocyte Absolute 0.02 K/mm3 (0.00-0.031); Immature Granulocyte Percent A 0.3 % (0-0.5); Lymphocytes Absolute Auto 1.26 K/mm3 (0.9-3.2); Lymphocytes Percent Auto 17.5 % (18.3-44.2); Mean Corpuscular HGB Conc 31.4 g/dl (32-36); Mean Corpuscular Hemoglobin 29.6 pg (26-34); Mean Corpuscular Volume 94.2 fl (80-100); Mean Platelet Volume 10.7 fl (7.4-10.4); Monocytes Absolute Auto 0.7 K/mm3 (0.1-0.6); Monocytes Percent Auto 10.1 % (2.6-8.5); Neutrophils Percent Auto 69.6 % (45.5-73.1); Platelet Count Result 203 k/mm3 (150-375); Red Blood Count 4.12 M/mm3 (4.6-6.20); Red Cell Distribution Width 15.2 % (11.5-14.5); White Blood Count 7.2 K/mm3 (4.5-10.0)
[2019-09-21 00:43] LABS: Lactic Acid Reflex 1.7 mmol/L (0.7-2.1)
[2019-09-21 00:49] VITALS: BP 136/78; PULSE 56; RESP 16; O2SAT 94
--- NOTE | 2019-09-21 01:31 | ED.SOB ---
HPI - SOB/Dyspnea General Chief Complaint: Shortness of Breath/Dyspnea Stated Complaint: SOB Time Seen by Provider: 09/20/19 23:30 History of Present Illness HPI Narrative: Patient is a 74-year-old male who presents ER with shortness of breath. Reports he was having a coughing fit when he became short of breath and nervous. He used his Symbicort. About an hour later his symptoms were resolved but he called EMS. No shortness of breath on his way here. He is without any chest pain/fever/chills/sweats. Cough is chronic and nonproductive. He has no new swelling to his lower extremities. Has history of CHF but denies any orthopnea. Related Data Home Medications Medication Instructions Recorded Confirmed furosemide 40 mg tablet 40 mg PO QAM 04/08/19 06/06/19 rosuvastatin 40 mg tablet 40 mg PO DAILY 04/08/19 06/06/19 finasteride [Proscar] 5 mg PO DAILY 04/12/19 06/06/19 Allergies Allergy/AdvReac Type Severity Reaction Status Date / Time codeine Allergy Unknown Upset Verified 09/20/19 23:41 stomach Review of Systems Review of Systems: All systems reviewed & are unremarkable except as noted in HPI and below Constitutional: Constitutional: Denies chills, Denies fever(s) and Denies weakness ENT: Denies nasal congestion and Denies sore throat Cardiovascular: Cardiovascular: Denies chest pain, Denies rapid heart rate and Denies radiating jaw, neck or arm pain Respiratory: Respiratory: Denies chest congestion, Reports cough, Reports dyspnea and Denies wheezing Gastrointestinal: Gastrointestinal: Denies abdominal pain, Denies nausea and Denies vomiting Musculoskeletal: Musculoskeletal: Denies arthralgias and Denies muscle cramps [facility] Social History Social History (Updated 06/06/19 @ 10:03 by Ben Rodríguez MD) Social History: The patient lives in [place] with his . They have 2 grown children. He is retired from working in sales. He designates his , Milana, as his surrogate decision maker and he wishes to be a full code. He smoked 1.5 packs of cigarettes per day and quit in 2012. He drinks alcohol rarely and on social occasions. No drug use. Smoking status: Former smoker Tobacco type: cigarettes Alcohol intake: former Substance use: never Additional living arrangements comments: with spouse Gender identity (if verbalized by the patient): Male Spiritual care concerns: No Agree to blood products: Yes Exam Narrative: Exam Narrative: GENERAL: Well-appearing, well-nourished, and in no acute distress. HEAD: Normocephalic, atraumatic. ENT: Mucous membranes moist. CHEST: Clear to auscultation. No respiratory distress. HEART: Irregular regular rate and rhythm. Normal peripheral pulses. ABDOMEN: Soft, nontender, nondistended. EXTREMITIES: Normal range of motion. 1+ edema. SKIN: Warm, dry, no rash. NEURO: Alert and oriented x3. Course Course Emergency Course: Patient informed of results. No symptoms while he is here. Up and ambulatory without issue. Feels comfortable with discharge. Vital Signs Vital signs: Vital Signs Temperature 97.6 F 09/20/19 23:26 Pulse Rate 67 09/20/19 23:26 Respiratory Rate 22 H 09/20/19 23:26 Blood Pressure 154/86 H 09/20/19 23:26 Pulse Oximetry 96 09/20/19 23:26 Temperature 97.6 F 09/20/19 23:26 Pulse Rate 56 L 09/21/19 00:49 Respiratory Rate 16 09/21/19 00:49 Blood Pressure 136/78 09/21/19 00:49 Pulse Oximetry 94 09/21/19 00:49 MDM - SOB/Dyspnea Lab Data Result diagrams: 09/20/19 23:55 09/20/19 23:55 Labs: Lab Results 09/20/19 09/20/19 09/20/19 Range/Units 23:55 23:55 23:55 WBC 7.2 (4.5-10.0) K/mm3 RBC 4.12 L (4.6-6.20) M/mm3 Hgb 12.2 L (14.0-18.0) g/dL Hct 38.8 L (42.0-52.0) % MCV 94.2 (80-100) fl MCH 29.6 (26-34) pg MCHC 31.4 L (32-36) g/dl RDW 15.2 H (11.5-14.5) % Plt Count 203 (150-375) k/mm3 MPV 10.7 H (7
[2019-09-21 02:04] VITALS: BP 153/82; PULSE 60; RESP 19; TEMP 36.4; O2SAT 99
== END 2019-09-21 02:05 | disposition home or self-care (01) ==
PROVIDERS: Emergency Provider Emergency Medicine; PCP Student in an Organized Health Care Education/Training Program
DX: R06.00 Dyspnea, unspecified (principal); F41.9 Anxiety disorder, unspecified; I48.91 Unspecified atrial fibrillation; Z87.891 Personal history of nicotine dependence; I50.9 Heart failure, unspecified
CPT/HCPCS: 36415; 71046; 80048; 83605; 85025; 93005; 99284

== ENCOUNTER 2019-10-19 12:00 | Outpatient (CLI) | payer OTHER, SELFPAY ==
--- NOTE | ~2019-10-19 | US_ITS ---
EXAMINATION: US venous doppler LE RT DATE: 10/19/2019 12:36 INDICATION: Right lower limb pain. TECHNIQUE: Grayscale ultrasound images without and with compression and Doppler ultrasound images of the right lower extremity veins were obtained. COMPARISON: Ultrasound 05/19/2016 FINDINGS: The visualized portions of right common femoral vein, profunda (deep) femoral vein, femoral vein, pop liteal vein, peroneal veins, posterior tibial veins, and greater saphenous vein outflow are patent. IMPRESSION: 1. No deep venous thrombosis. Reviewed, dictated and finalized at location A.
[2019-10-19 13:10] LABS: Basophils Percent Auto 0.4 % (0.2-1.2); Eosinophils Absolute Auto 0.1 K/mm3 (0-0.3); Eosinophils Percent Auto 0.7 % (0-4.4); Hematocrit 38.6 % (42.0-52.0); Hemoglobin 12.2 g/dL (14.0-18.0); Immature Granulocyte Absolute 0.03 K/mm3 (0.00-0.031); Immature Granulocyte Percent A 0.4 % (0-0.5); Lymphocytes Absolute Auto 1.35 K/mm3 (0.9-3.2); Lymphocytes Percent Auto 17.9 % (18.3-44.2); Mean Corpuscular HGB Conc 31.6 g/dl (32-36); Mean Corpuscular Volume 91.7 fl (80-100); Mean Platelet Volume 9.5 fl (7.4-10.4); Monocytes Absolute Auto 0.7 K/mm3 (0.1-0.6); Monocytes Percent Auto 8.7 % (2.6-8.5); Neutrophils Absolute Auto 5.4 K/mm3 (1.3-6.7); Neutrophils Percent Auto 71.9 % (45.5-73.1); Platelet Count Result 222 k/mm3 (150-375); Red Blood Count 4.21 M/mm3 (4.6-6.20); Red Cell Distribution Width 14.6 % (11.5-14.5); White Blood Count 7.6 K/mm3 (4.5-10.0)
[2019-10-19 13:22] LABS: Alanine Aminotransferase 10 U/L (4-50); Albumin Level 4.1 g/dL (3.5-5.1); Alkaline Phosphatase 117 U/L (38-126); Anion Gap 12.1 mmol/L (7-16); Aspartate Amino Transferase 18 U/L (17-59); Bilirubin,Total 0.8 mg/dL (0.2-1.3); Blood Urea Nitrogen 16 mg/dL (9-20); Calcium 8.5 mg/dL (8.4-10.2); Carbon Dioxide 29 mmol/L (22-30); Chloride 95 mmol/L (98-107); Cholesterol 109 mg/dL (0-200); Estimated Glomerular Filt Rate 59; Glucose 102 mg/dL (75-110); HDL Direct 32 mg/dL; Potassium 4.1 mmol/L (3.4-5.0); Sodium 132 mmol/L (137-145); Triglycerides 169 mg/dL (<150)
[2019-10-19 13:33] LABS: LDL Cholesterol Direct 56 mg/dL
[2019-10-19 13:52] LABS: Prostate Specific Antigen 1.7 ng/mL (< OR = 4.0)
[2019-10-19 14:13] LABS: Vitamin D 25 Hydroxy 14.2 ng/mL
== END 2019-10-19 12:01 | disposition home or self-care (01) ==
PROVIDERS: PCP Student in an Organized Health Care Education/Training Program; Visit Provider Student in an Organized Health Care Education/Training Program
DX: M79.661 Pain in right lower leg (principal); M79.89 Other specified soft tissue disorders; I11.0 Hypertensive heart disease with heart failure; I50.42 Chronic combined systolic (congestive) and diastolic (congestive) heart failure; N18.3 Chronic kidney disease, stage 3 (moderate); N40.0 Benign prostatic hyperplasia without lower urinary tract symptoms
CPT/HCPCS: 36415; 80053; 80061; 82306; 84153; 84443; 85025; 93971

== ENCOUNTER 2019-10-25 09:40 | Outpatient (CLI) | payer OTHER, SELFPAY ==
[2019-10-26 11:13] LABS: Anion Gap 23.7 mmol/L (7-16); Blood Urea Nitrogen 12 mg/dL (9-20); Calcium 9.3 mg/dL (8.4-10.2); Carbon Dioxide 23 mmol/L (22-30); Chloride 91 mmol/L (98-107); Estimated Glomerular Filt Rate 42; Glucose 32 mg/dL (75-110); Potassium 4.7 mmol/L (3.4-5.0); Sodium 133 mmol/L (137-145)
== END 2019-10-25 09:41 | disposition home or self-care (01) ==
PROVIDERS: PCP Student in an Organized Health Care Education/Training Program; Visit Provider Student in an Organized Health Care Education/Training Program
DX: E87.1 Hypo-osmolality and hyponatremia (principal)
CPT/HCPCS: 36415; 80048

== ENCOUNTER 2020-01-29 16:00 | Inpatient (IN) | payer OTHER, SELFPAY ==
[2020-01-29] VITALS (16 sets, daily range): BP systolic 110–159; BP diastolic 67–115; PULSE 67–128; RESP 17–34; TEMP 36.3–36.6; O2SAT 94–100; BMI 32.2
--- NOTE | ~2020-01-29 | XR_ITS ---
XR chest 1V portable 01/29/2020 16:44 Indication: Cough and shortness of breath. Hypertension. Lung cancer. Procedure: AP portable chest Comparison: Comparison to multiple prior studies sequentially, with oldest reviewed study dated 08/26. Findings: Cardiomegaly with development of diffuse bilateral airspace disease, right greater than lef t, involving the upper, mid and lower lung zones. No pleural effusion or pneumothorax. No acute osseo us abnormality. Impression: 1: Diffuse bilateral airspace disease which may represent edema or pneumonia. 2: Cardiomegaly. Reviewed, dictated and finalized at location A. N RICE GRADER AND REEL TENDER Impression: 1: Diffuse bilateral airspace disease which may represent edema or pneumonia. 2: Cardiomegaly.
--- NOTE | ~2020-01-29 | XR_ITS ---
EXAMINATION: XR chest 1V portable EXAM DATE: 02/02/2020 09:09 INDICATION: Shortness of breath. TECHNIQUE: Portable AP frontal chest x-ray was obtained. Comparison is made to prior examination from 01/29/2020. FINDINGS: There is small amount of ill-defined bilateral airspace disease, improvement compared to pr evious examination. Probably improving pulmonary edema. No confluent airspace disease or pneumothorax . Probable small left subpulmonic pleural effusion. The cardiomediastinal silhouette is prominent but magnified on this AP technique. Cardiac silhouette is stable in size compared to prior exam. There a re no osseous abnormalities identified. IMPRESSION: 1. Ill-defined bilateral airspace disease could be pulmonary edema with improvement. Infection not e xcludable. 2. Probable small left subpulmonic pleural effusion. Reviewed, dictated and finalized at location B. DELER IMPRESSION: 1. Ill-defined bilateral airspace disease could be pulmonary edema with improv ement. Infection not excludable. 2. Probable small left subpulmonic pleural effusion.
--- NOTE | ~2020-01-29 | XR_ITS ---
EXAMINATION: XR chest 1V portable EXAM DATE: 02/09/2020 09:16 INDICATION: Dyspnea TECHNIQUE: Portable AP frontal chest x-ray was obtained. Comparison is made to prior examination from 02/05, 02/04. FINDINGS: Moderate amount of bilateral diffuse ill-defined airspace disease, could be edema and/or in fection. No sizable pleural effusion. No pneumothorax. Cardiac silhouette is stable in size compared to prior exam. There are mild bony degenerative changes. There is no significant interval change. IMPRESSION: Moderate ill-defined edema and/or pneumonia. Reviewed, dictated and finalized at location A. PHONE OPERATOR CHIEF
--- NOTE | ~2020-01-29 | XR_ITS ---
EXAMINATION: XR chest 1V portable DATE: 02/05/2020 06:21 INDICATION: Congestive heart failure. TECHNIQUE: A single frontal view of the chest was obtained. COMPARISON: Chest single view 02/02/2020, chest CT 01/30/2020 FINDINGS: There are lucencies in the lungs, consistent with emphysema. There is a staple line in left lung upper lobe. There is a diffuse interstitial pattern in the lungs. There are airspace opacities in the mid and lower lung zones. No pleural effusion or pneumothorax. Cardiomegaly is noted. There ar e old healed right rib fractures. IMPRESSION: 1. Worsened diffuse lung disease, likely moderate pulmonary edema superimposed on emphysema. 2. Cardiomegaly. Reviewed, dictated and finalized at location A. S AND MARKETING ANALYST
--- NOTE | ~2020-01-29 | XR_ITS ---
EXAMINATION: XR chest 1V portable EXAM DATE: 02/06/2020 06:23 INDICATION: CHF, pneumonia. TECHNIQUE: Portable AP frontal chest x-ray was obtained. Comparison is made to prior examination from 02/05/2020. FINDINGS: Moderate amount of bilateral diffuse ill-defined airspace disease, could be edema and/or in fection. Slight interval progression compared to yesterday. No sizable pleural effusion. No pneumothorax. Cardiac silhouette is stable in size compared to prior exam. There are mild bony degenerative changes. IMPRESSION: Moderate ill-defined edema and/or pneumonia. Reviewed, dictated and finalized at location A. ING DIES FINAL FINISHER
--- NOTE | ~2020-01-29 | CT_ITS ---
EXAMINATION: CTA chest PE protocol DATE: 01/30/2020 18:32 INDICATION: Shortness of breath. TECHNIQUE: Computed tomography angiography (CTA) of the chest was performed with 100 mL Omnipaque-350 intravenous contrast timed to evaluate the pulmonary arteries. Coronal maximum intensity projection 3D-reconstructions were created by the technologist. Automated exposure control and iterative reconst ruction technique were employed. The dose-length product was 693.41 mGy-cm. COMPARISON: Chest CT 05/18/2016 FINDINGS: There is moderate emphysema. There are changes of wedge resection in left upper lobe. There is mild dependent atelectasis bilaterally. There are small pleural effusions. Cardiomegaly is noted. There are coronary artery calcifications. The central pulmonary arteries are enlarged, consistent wi th pulmonary arterial hypertension. There is no pulmonary embolus. There are gallstones in the gallbl adder, which is normal in size. Partially visualized is a stent graft in abdominal aorta. There are b ridging endplate osteophytes at multiple levels in the spine, consistent with diffuse idiopathic skel etal hyperostosis (DISH). IMPRESSION: 1. No pulmonary embolus. 2. Moderate emphysema. 3. Small pleural effusions. 4. Cardiomegaly. Reviewed, dictated and finalized at location A. CIATE BROKER
--- NOTE | 2020-01-29 16:08 | ECG_ITS ---
Measurements Intervals [place] Rate: 83 P: NM: 0 QRS: 90 QRSD: 22 T: -24 QT: 266 QTc: 313 Interpretive Statements ATRIAL FIBRILLATION WITH RAPID VENTRICULAR RESPONSE RIGHT AXIS DEVIATION INCOMPLETE RIGHT BUNDLE BRANCH BLOCK LOW QRS VOLTAGE- PRECORDIAL LEADS BASELINE ARTIFACT- I, II, III, AVR, AVL, AVF, V1-V6 ABNORMAL ECG Electronically Signed On 01-30-2020 7:14:35 [employer] by Ever Giron D.O.
--- NOTE | 2020-01-29 16:28 | ED.SOB ---
HPI - SOB/Dyspnea General Chief Complaint: Shortness of Breath/Dyspnea Stated Complaint: sob Time Seen by Provider: 01/29/20 16:09 Source: RN notes reviewed History of Present Illness HPI Narrative: Patient presents emergency department from home for shortness of breath. Patient states symptoms began roughly 3 hours ago. He states that he began to feel more short of breath with wheezing. States he has a history of COPD and CHF but denies having any increased swelling. Patient states that prior to 3 hours ago he had been feeling fine he denies any recent exposure to Covid positive patients. Denies any fevers or chills chest pain abdominal pain nausea vomiting or any other symptoms Related Data Home Medications Medication Instructions Recorded Confirmed furosemide 40 mg tablet 40 mg PO QAM 04/08/19 01/29/20 rosuvastatin 40 mg tablet 40 mg PO DAILY 04/08/19 01/29/20 finasteride [Proscar] 5 mg PO DAILY 04/12/19 01/29/20 Allergies Allergy/AdvReac Type Severity Reaction Status Date / Time codeine Allergy Unknown Upset Verified 01/29/20 16:33 stomach Review of Systems Review of Systems: Narrative: Gen.: Denies fevers or chills ENT: Denies congestion Respiratory: See HPI CV: Denies chest pain or palpitations GI: Denies abdominal pain nausea, emesis or diarrhea Musculoskeletal: Denies back pain or muscle pain Neuro: Denies numbness, tingling, weakness or focal weakness Skin: Denies rash Except as documented, all other systems reviewed and negative [facility] Past Medical History Medical History (Updated 01/29/20 @ 20:59 by Antony Fox DO) Benign prostatic hyperplasia Chronic anemia Chronic atrial fibrillation Chronic kidney disease, stage 3 Baseline creatinine between 1.5 and 1.70. COPD (chronic obstructive pulmonary disease) I do not believe this is been officially diagnosed. Emphysema noted on imaging. Coronary artery disease With history of AK. Patient has drug-eluting stent to OM and 2 drug-eluting stent to LAD placed in December 2016. Stress test 09/07/2018 showed no fixed or reversible deficits with an ejection fraction of 77%. Depression Diastolic congestive heart failure Echocardiogram 08/26/2018 showed diastolic dysfunction with an ejection fraction of 65% and moderate biatrial enlargement, mild MR, mild TR, mild TR, and mild aortic stenosis with a valve area of 1.9 centimeters squared. Hypokinetic segments of the left ventricle include basal anterior and mid anterior segment. Akinetic segments include the mid anteroseptal segment. Essential tremor History of CVA (cerebrovascular accident) without residual deficits Hypertension Impaired fasting glucose Lung cancer Status post partial left upper lobectomy in December 2012. Mixed hyperlipidemia Osteoarthritis Peripheral arterial disease With history of lower extremity angioplasty and stents as well as endovascular repair of abdominal aortic aneurysm. Pulmonary hypertension Echocardiogram August 26, 2018 showed an RVSP of 50 to 55 millimeters of mercury. Surgical History Surgical History History of aortic aneurysm repair Endovascular abdominal aortic aneurysm repair with right renal arterial balloon angioplasty and right common femoral artery graft in December 2013. History of excision of epidermal inclusion cyst From the chest wall. History of vascular surgery Bilateral external iliac artery angioplasty in October 2011. Also with right renal artery balloon angioplasty and right common femoral artery graft in December 2013 at the time of endovascular repair of abdominal aortic aneurysm. Status post coronary artery stent placement Drug-eluting stent to the OM and 2 drug-eluting stents to the LAD in December 2016. Status post lobectomy of lung Partial left upper lobe lobectomy in December 2012 for lung cancer. Family History Family History Mother Cer
[2020-01-29 16:29] LABS: Alveolar/Arterial O2 Gradient 564.2 mmHg; Base Excess ABG -8.5 mEq/l (+/-2.0); Fractional Inspired Oxygen 100 %; HCO3 ABG 17.4 mEq/l (22.0-26.0); Oxygen Saturation ABG 97.6 % (95.0-100.0); Oxyhemoglobin 96.1 % THb (90.0-100.0); PCO2 ABG 37.1 mmHg (35.0-45.0); PO2 ABG 111.7 mmHg (80.0-100.0); PO2 FiO2 Ratio Arterial Blood 1.12 %; Total Hemoglobin 13.2 g/dL (12.0-18.0)
[2020-01-29 16:30] LABS: Device NON-REBREATHER MASK; Modified Allen's Test Pass; Site Drawn RIGHT RADIAL; pH ABG 7.288 (7.350-7.450)
[2020-01-29 16:37] LABS: Basophils Percent Auto 0.3 % (0.2-1.2); Eosinophils Percent Auto 0.3 % (0-4.4); Hematocrit 39.9 % (42.0-52.0); Hemoglobin 12.6 g/dL (14.0-18.0); Immature Granulocyte Absolute 0.02 K/mm3 (0.00-0.031); Immature Granulocyte Percent A 0.2 % (0-0.5); Lymphocytes Absolute Auto 1.32 K/mm3 (0.9-3.2); Lymphocytes Percent Auto 14.3 % (18.3-44.2); Mean Corpuscular HGB Conc 31.6 g/dl (32-36); Mean Corpuscular Hemoglobin 29.6 pg (26-34); Mean Corpuscular Volume 93.7 fl (80-100); Mean Platelet Volume 9.5 fl (7.4-10.4); Monocytes Absolute Auto 0.6 K/mm3 (0.1-0.6); Monocytes Percent Auto 6.4 % (2.6-8.5); Neutrophils Absolute Auto 7.3 K/mm3 (1.3-6.7); Neutrophils Percent Auto 78.5 % (45.5-73.1); Platelet Count Result 267 k/mm3 (150-375); Red Blood Count 4.26 M/mm3 (4.6-6.20); Red Cell Distribution Width 14.8 % (11.5-14.5); White Blood Count 9.3 K/mm3 (4.5-10.0)
[2020-01-29] MEDS: IPRATROPIUM BR 0.02% INH SOLN 0.5 MG/2.5 ML VIAL INHALATION ×2 (16:38→20:54)
[2020-01-29] MEDS: ALBUTEROL SULFATE NEB 2.5 MG/0.5 ML INH 5 MG INHALATION ×2 (16:38→20:53)
[2020-01-29 16:48] LABS: INR 1.2
[2020-01-29 16:48] LABS: Lactic Acid Reflex 2.8 mmol/L (0.7-2.1)
[2020-01-29 16:49] LABS: Partial Thromboplastin Time 26.9 SECONDS (22.3-36.8)
[2020-01-29 16:53] LABS: Alanine Aminotransferase 10 U/L (4-50); Albumin Level 3.9 g/dL (3.5-5.1); Alkaline Phosphatase 105 U/L (38-126); Anion Gap 8 mmol/L (8-16); Aspartate Amino Transferase 23 U/L (17-59); Bilirubin,Total 0.9 mg/dL (0.2-1.3); Blood Urea Nitrogen 14 mg/dL (9-20); Calcium 8.6 mg/dL (8.4-10.2); Carbon Dioxide 31 mmol/L (22-30); Chloride 93 mmol/L (98-107); Estimated CRCL calculation 47 ml/min; Estimated Glomerular Filt Rate > 60; Glucose 206 mg/dL (75-110); Lipase 44 U/L (23-300); Potassium 3.9 mmol/L (3.4-5.0); Sodium 132 mmol/L (137-145)
[2020-01-29 16:58] LABS: NT Pro B Type Natriuretic Pept 6540 PG/ML (5-100)
[2020-01-29] MEDS: methylPREDNISolone SOD SUCC 125 MG VIAL IV PUSH (16:58)
[2020-01-29 17:01] LABS: Troponin I 0.028 ng/mL (0.000-0.034)
[2020-01-29] MEDS: FUROSEMIDE INJ 40 MG/4 ML VIAL IV PUSH (17:05)
--- NOTE | 2020-01-29 17:10 | ECG_ITS ---
Measurements Intervals [place] Rate: 100 P: MA: 0 QRS: 109 QRSD: 116 T: -1 QT: 353 QTc: 457 Interpretive Statements ATRIAL FIBRILLATION WITH RAPID VENTRICULAR RESPONSE RIGHT AXIS DEVIATION INCOMPLETE RIGHT BUNDLE BRANCH BLOCK LOW VOLTAGE- PRECORDIAL LEADS BORDERLINE ST-T WAVE ABNORMALITY- ANT/INF LEADS BASELINE ARTIFACT- I, II, III, AVR, AVF, V2, V6 ABNORMAL ECG Electronically Signed On 01-30-2020 7:19:20 DIRECTOR PRIVATE by Ever Giron D.O.
[2020-01-29 19:33] LABS: Reflex Lactic Acid Yes or No Add Lactic
--- NOTE | 2020-01-29 20:25 | ADMGEN ---
This patient, Trent Swartz, was admitted to IMU Room 232-01 at 2009. Patient/family oriented to hospital policies and general routines including ID bracelet, bed and alarms, visiting hours, pain management, procedures, bathroom and other care routines, personal items, smoking policy, room service/diet, and visiting hours. Information on how to activate the Rapid Response Team has been discussed. Patient/Family are encouraged to report perceived risks to care and to ask questions if they do not understand what they are told or what they should do.
[2020-01-29 21:22] LABS: Lactic Acid 2.3 mmol/L (0.7-2.1)
[2020-01-29 21:39] LABS: Troponin I 0.608 ng/mL (0.000-0.034)
[2020-01-29] MEDS: PROPRANOLOL HCL 40 MG TABLET PO (22:27)
[2020-01-29] MEDS: methylPREDNISolone SOD SUCC 125 MG VIAL 60 MG IV PUSH (22:27)
--- NOTE | 2020-01-29 23:15 | PM.IMHP ---
H&P: HPI History of Present Illness Date/Time: 01/29/20 23:15 Chief complaint: Sudden shortness of breath Narrative: Trent Swartz is a 75 year old male with a past medical history of coronary artery disease, likely COPD, diastolic dysfunction and chronic atrial fibrillation who presented to the ER via EMS from home after sudden onset of shortness of breath. The patient reports that he was sitting at home watching TV when approximately 2 hours prior to arrival he began feeling short of breath. He has a chronic cough that is unchanged from baseline and denies any sputum production. He had not been having any chest pain or lower extremity swelling. He had not any increased dyspnea on exertion. He does not wear oxygen at home. He did notice that he was wheezing but did not think he was wheezing any more than usual. He lives at at home with his . They were only contact outside of the home has been there home caregiver who comes in 3 days a week. They have no known ill contacts. He denies any orthopnea or paroxysmal nocturnal dyspnea. Per EMS report the patient's blood pressures were 200 systolic when they arrived on scene. The patient's blood pressures on arrival to the ER were down in the 150s. The patient had oxygen saturations of 80% on room air on EMS arrival and he was placed on 15 L non-rebreather and was satting 95% on arrival to the ER. His respirations in the field were 40. Initially his respiratory rate was in the mid 30s in the ER but improved down to low 20s with application of BiPAP. Review of Systems Review of Systems: Narrative: 12 systems were reviewed with pertinent positives and negatives per HPI. Except as documented in the HPI, all other systems were reviewed and are negative. [facility] Past Medical History Medical History (Updated 01/30/20 @ 02:48 by Aletha Hernandez DO) Benign prostatic hyperplasia Chronic anemia Chronic atrial fibrillation Not on anticoagulation due to severe anemia with anticoagulant February 2018 Chronic kidney disease, stage 3 Baseline creatinine between 1.5 and 1.70. COPD (chronic obstructive pulmonary disease) I do not believe this is been officially diagnosed. Emphysema noted on imaging. Coronary artery disease With history of MT. Patient has drug-eluting stent to OM and 2 drug-eluting stent to LAD placed in December 2016. Stress test 09/07/2018 showed no fixed or reversible deficits with an ejection fraction of 77%. Depression Diastolic congestive heart failure Echocardiogram March 2019: Diastolic dysfunction with an ejection fraction of 65% and moderate right atrial enlargement severe left atrial enlargement, moderate MR, mild TR, mild TR, and mild aortic stenosis with a valve area of 1.9 centimeters squared. Mild pulmonary hypertension with RVSP of 43. Hypokinetic segments of the left ventricle include basal anterior and mid anterior segment. Akinetic segments include the mid anteroseptal segment. Essential tremor History of CVA (cerebrovascular accident) without residual deficits Hypertension Impaired fasting glucose Lung cancer Status post partial left upper lobectomy in December 2012. Mixed hyperlipidemia Osteoarthritis Peripheral arterial disease With history of lower extremity angioplasty and stents as well as endovascular repair of abdominal aortic aneurysm. Pulmonary hypertension Echocardiogram August 26, 2018 showed an RVSP of 50 to 55 millimeters of mercury. Surgical History Surgical History History of aortic aneurysm repair Endovascular abdominal aortic aneurysm repair with right renal arterial balloon angioplasty and right common femoral artery graft in December 2013. History of excision of epidermal inclusion cyst From the chest wall. History of vascular surgery Bilateral external iliac artery angioplasty in October 2011. Also with right renal artery balloon angioplasty and right common femoral artery graft in O
[2020-01-30] VITALS (25 sets, daily range): BP systolic 98–134; BP diastolic 66–83; PULSE 53–89; RESP 18–26; TEMP 36.1–36.5; O2SAT 90–100
[2020-01-30 00:40] LABS: Troponin I 0.769 ng/mL (0.000-0.034)
[2020-01-30] MEDS: ALBUTEROL SULFATE NEB 2.5 MG/0.5 ML INH 5 MG INHALATION ×4 (02:57→20:27)
[2020-01-30] MEDS: IPRATROPIUM BR 0.02% INH SOLN 0.5 MG/2.5 ML VIAL INHALATION ×4 (02:57→20:26)
[2020-01-30 03:45] LABS: Add Urine Microscopic? YES; Appearance Urine Clear (Clear); Bacteria Urine Trace /hpf; Bilirubin Urine Negative (Negative); Blood Urine Negative (Negative); Color Urine Yellow (Yellow); Glucose Urine UA Negative (Negative); Ketones Urine Negative (Negative); Leukocyte Esterase Ur Negative LEU/UL (Negative); Mucus Urine Rare /lpf; Nitrate Urine Negative (Negative); Protein Urine 1+ mg/dL (Negative); RBC Urine 0-2 /hpf (0-2); Specific Grav Ur 1.011 (1.001-1.035); Urobilinogen Urine Negative mg/dL (<2.0); WBC Urine 0-3 /hpf
[2020-01-30 05:41] LABS: Basophils Percent Auto 0.2 % (0.2-1.2); Hematocrit 37.3 % (42.0-52.0); Hemoglobin 11.6 g/dL (14.0-18.0); Immature Granulocyte Absolute 0.03 K/mm3 (0.00-0.031); Immature Granulocyte Percent A 0.6 % (0-0.5); Lymphocytes Absolute Auto 0.48 K/mm3 (0.9-3.2); Lymphocytes Percent Auto 8.9 % (18.3-44.2); Mean Corpuscular HGB Conc 31.1 g/dl (32-36); Mean Corpuscular Hemoglobin 28.4 pg (26-34); Mean Corpuscular Volume 91.2 fl (80-100); Mean Platelet Volume 9.9 fl (7.4-10.4); Monocytes Absolute Auto 0.1 K/mm3 (0.1-0.6); Monocytes Percent Auto 1.8 % (2.6-8.5); Neutrophils Absolute Auto 4.8 K/mm3 (1.3-6.7); Neutrophils Percent Auto 88.5 % (45.5-73.1); Platelet Count Result 191 k/mm3 (150-375); Red Blood Count 4.09 M/mm3 (4.6-6.20); Red Cell Distribution Width 14.6 % (11.5-14.5); White Blood Count 5.4 K/mm3 (4.5-10.0)
[2020-01-30 05:49] LABS: Anion Gap 10 mmol/L (8-16); Blood Urea Nitrogen 20 mg/dL (9-20); Calcium 8.9 mg/dL (8.4-10.2); Carbon Dioxide 28 mmol/L (22-30); Chloride 93 mmol/L (98-107); Estimated CRCL calculation 46 ml/min; Estimated Glomerular Filt Rate 54; Glucose 155 mg/dL (75-110); Potassium 4.4 mmol/L (3.4-5.0); Sodium 131 mmol/L (137-145)
[2020-01-30] MEDS: methylPREDNISolone SOD SUCC 125 MG VIAL 60 MG IV PUSH ×3 (05:51→22:09)
[2020-01-30 06:04] LABS: Troponin I 0.925 ng/mL (0.000-0.034)
[2020-01-30 09:43] LABS: D Dimer 2.72 ug/mL (<0.48)
[2020-01-30 09:45] LABS: CRP 4.1 mg/dL (<1.0); Lactate Dehydrogenase 462 U/L (313-618)
[2020-01-30] MEDS: ROSUVASTATIN 10 MG TABLET 40 MG PO (10:00)
[2020-01-30] MEDS: POTASSIUM CHLORIDE 20 MEQ TABLET.ER PO (10:01)
[2020-01-30] MEDS: FUROSEMIDE 40 MG TABLET PO (10:01)
[2020-01-30] MEDS: ASPIRIN 81 MG ENTERIC TABLET PO (10:02)
[2020-01-30] MEDS: FINASTERIDE 5 MG TABLET PO (10:02)
[2020-01-30] MEDS: PROPRANOLOL HCL 40 MG TABLET PO ×2 (10:02→22:08)
[2020-01-30] MEDS: TAMSULOSIN HCL 0.4 MG CAPSULE PO (10:03)
--- NOTE | 2020-01-30 17:31 | PM.IMPN ---
Progress Note: A&P Assessment and Plan (1) Acute respiratory failure with hypoxia: Code(s): J96.01 - Acute respiratory failure with hypoxia Status: Acute Assessment and Plan: More likely due to acute pulmonary edema versus COPD exacerbation. The patient's BNP is elevated above baseline in his troponins are modestly elevated. Respiratory status has improved with BiPAP, diuresis and nebulizer treatments. The patient is much more comfortable and at this time will wean the patient from BiPAP in place more nasal cannula. Continue b.i.d. IV Lasix and scheduled nebulizer treatments. 01/30/20 17:31 patient is 75-year-old male with past medical history of COPD and CHF presented emergency department with sudden onset with of shortness of breath patient was placed on BiPAP and was diuresed his symptoms have improved compared to when he arrived however sudden onset of or shortness and elevated D-dimer concern for PE will go iron to the CTA of the chest to further evaluate and further recommendation to follow. (2) CHF (congestive heart failure): Qualifiers: Heart failure chronicity: acute on chronic Heart failure type: diastolic Qualified Code(s): I50.33 - Acute on chronic diastolic (congestive) heart failure Code(s): I50.9 - Heart failure, unspecified Status: Acute Assessment and Plan: It sounds as if the patient may have had some flash pulmonary edema. Nursing staff reports that the patient's heart rate jumps up with minimal stimuli. There may be a component of high output failure. Continue diuresis. Monitor telemetry, strict I&O's and daily weights. (3) Elevated troponin: Code(s): R77.8 - Other specified abnormalities of plasma proteins Status: Acute Assessment and Plan: Likely secondary to his acute hypoxic event causing demand ischemia. Continue to monitor on telemetry and trend troponins. Subjective Date/time seen: 01/30/20 17:31 patient is 75-year-old male with past medical history of COPD and CHF presented emergency department with sudden onset with of shortness of breath patient was placed on BiPAP and was diuresed his symptoms have improved compared to when he arrived however sudden onset of or shortness and elevated D-dimer concern for PE will go iron to the CTA of the chest to further evaluate and further recommendation to follow. Review of Systems Review of Systems: All systems reviewed & are unremarkable except as noted in HPI and below Exam Narrative: Exam Narrative: Patient is comfortable, NAD HEENT: eyes are clear and none icteric LUNGS: bilateral poor air entry with rales and rhonchi HEART: irregularly irregular ABD: BS+, Soft and nontender Lower extremities: no edema SKIN: nonjaundiced Neuro: grossly intact. Objective Data Vital Signs Vital Signs: Vital Signs - 24 hr 01/29/20 17:49 01/29/20 18:31 01/29/20 19:11 Temperature Pulse Rate 102 H 98 104 H Respiratory Rate 20 22 H 24 H Blood Pressure 110/74 112/88 128/79 Pulse Oximetry 96 100 98 01/29/20 20:02 01/29/20 20:22 01/29/20 20:28 Temperature 97.8 F Pulse Rate 95 84 128 H Respiratory Rate 22 H 27 H 20 Blood Pressure 111/89 118/72 Pulse Oximetry 100 100 100 01/29/20 22:00 01/29/20 22:27 01/29/20 23:28 Temperature Pulse Rate 83 77 112 H Respiratory Rate 17 Blood Pressure Pulse Oximetry 98 01/29/20 23:35 01/30/20 00:00 01/30/20 02:00 Temperature 97.9 F Pulse Rate 67 66 67 Respiratory Rate 20 20 Blood Pressure 113/67 Pulse Oximetry 100 100 01/30/20 02:40 01/30/20 02:58 01/30/20 03:07 Temperature Pulse Rate 89 66 Respiratory Rate 20 18 Blood Pressure Pulse Oximetry 97 01/30/20 03:10 01/30/20 04:00 01/30/20 06:00 Temperature 97.2 F L Pulse Rate 65 68 Respiratory Rate 18 Blood Pressure 98/67 L Pulse Oximetry 97 91 01/30/20 07:59 01/30/20 08:00 01/30/20 08:15 Temperature 96.9 F L Pulse
[2020-01-31] VITALS (22 sets, daily range): BP systolic 101–164; BP diastolic 53–97; PULSE 64–114; RESP 18–25; TEMP 36.3–36.8; O2SAT 90–96
[2020-01-31] MEDS: IPRATROPIUM BR 0.02% INH SOLN 0.5 MG/2.5 ML VIAL INHALATION ×4 (03:00→20:54)
[2020-01-31] MEDS: ALBUTEROL SULFATE NEB 2.5 MG/0.5 ML INH 5 MG INHALATION ×4 (03:00→20:54)
[2020-01-31 05:53] LABS: Hematocrit 38.9 % (42.0-52.0); Hemoglobin 12.5 g/dL (14.0-18.0); Mean Corpuscular HGB Conc 32.1 g/dl (32-36); Mean Corpuscular Hemoglobin 28.7 pg (26-34); Mean Corpuscular Volume 89.4 fl (80-100); Mean Platelet Volume 10.5 fl (7.4-10.4); Platelet Count Result 244 k/mm3 (150-375); Red Blood Count 4.35 M/mm3 (4.6-6.20); Red Cell Distribution Width 14.9 % (11.5-14.5); White Blood Count 12.2 K/mm3 (4.5-10.0)
[2020-01-31] MEDS: methylPREDNISolone SOD SUCC 125 MG VIAL 60 MG IV PUSH ×3 (06:00→21:01)
[2020-01-31 06:17] LABS: Alanine Aminotransferase 15 U/L (4-50); Albumin Level 4.2 g/dL (3.5-5.1); Alkaline Phosphatase 86 U/L (38-126); Anion Gap 12 mmol/L (8-16); Aspartate Amino Transferase 36 U/L (17-59); Blood Urea Nitrogen 35 mg/dL (9-20); Calcium 8.7 mg/dL (8.4-10.2); Carbon Dioxide 33 mmol/L (22-30); Chloride 88 mmol/L (98-107); Estimated CRCL calculation 47 ml/min; Estimated Glomerular Filt Rate 54; Glucose 168 mg/dL (75-110); Potassium 3.9 mmol/L (3.4-5.0); Sodium 133 mmol/L (137-145)
[2020-01-31] MEDS: TAMSULOSIN HCL 0.4 MG CAPSULE PO (09:18)
[2020-01-31] MEDS: ROSUVASTATIN 10 MG TABLET 40 MG PO (09:18)
[2020-01-31] MEDS: PROPRANOLOL HCL 40 MG TABLET PO ×2 (09:18→20:53)
[2020-01-31] MEDS: FINASTERIDE 5 MG TABLET PO (09:19)
[2020-01-31] MEDS: FUROSEMIDE 40 MG TABLET PO (09:19)
[2020-01-31] MEDS: POTASSIUM CHLORIDE 20 MEQ TABLET.ER PO (09:19)
[2020-01-31] MEDS: ASPIRIN 81 MG ENTERIC TABLET PO (09:19)
[2020-01-31] MEDS: ALPRAZolam (*CRX) 0.25 MG TABLET PO (12:08)
[2020-01-31] MEDS: FUROSEMIDE INJ 40 MG/4 ML VIAL 20 MG IV PUSH (12:09)
--- NOTE | 2020-01-31 16:26 | PM.IMPN ---
Progress Note: A&P Assessment and Plan (1) Acute respiratory failure with hypoxia: Code(s): J96.01 - Acute respiratory failure with hypoxia Status: Acute Assessment and Plan: More likely due to acute pulmonary edema versus COPD exacerbation. The patient's BNP is elevated above baseline in his troponins are modestly elevated. Respiratory status has improved with BiPAP, diuresis and nebulizer treatments. The patient is much more comfortable and at this time will wean the patient from BiPAP in place more nasal cannula. Continue b.i.d. IV Lasix and scheduled nebulizer treatments. 01/31/20 16:26 patient is 75-year-old male with past medical history of COPD and CHF presented emergency department with sudden onset with of shortness of breath patient was placed on BiPAP and was diuresed his symptoms have improved compared to when he arrived however sudden onset of or shortness and elevated D-dimer concerned for PE, patient had CTA of the chest which was negative for PE, today patient still complains shortness of breath, besides having severe COPD, patient also has a moderate to severe pulmonary hypertension and his lung sounds congested, will switch patient oral Lasix to IV Lasix and closely monitor patient. months patient clinically stable will have a PT OT evaluate the patient patient will benefit from pulmonary rehab. (2) CHF (congestive heart failure): Qualifiers: Heart failure chronicity: acute on chronic Heart failure type: diastolic Qualified Code(s): I50.33 - Acute on chronic diastolic (congestive) heart failure Code(s): I50.9 - Heart failure, unspecified Status: Acute Assessment and Plan: It sounds as if the patient may have had some flash pulmonary edema. Nursing staff reports that the patient's heart rate jumps up with minimal stimuli. There may be a component of high output failure. Continue diuresis. Monitor telemetry, strict I&O's and daily weights. (3) Elevated troponin: Code(s): R77.8 - Other specified abnormalities of plasma proteins Status: Acute Assessment and Plan: Likely secondary to his acute hypoxic event causing demand ischemia. Continue to monitor on telemetry and trend troponins. Subjective Date/time seen: 01/31/20 16:26 patient is 75-year-old male with past medical history of COPD and CHF presented emergency department with sudden onset with of shortness of breath patient was placed on BiPAP and was diuresed his symptoms have improved compared to when he arrived however sudden onset of or shortness and elevated D-dimer concerned for PE, patient had CTA of the chest which was negative for PE, today patient still complains shortness of breath, besides having severe COPD, patient also has a moderate to severe pulmonary hypertension and his lung sounds congested, will switch patient oral Lasix to IV Lasix and closely monitor patient. months patient clinically stable will have a PT OT evaluate the patient patient will benefit from pulmonary rehab. Review of Systems Review of Systems: All systems reviewed & are unremarkable except as noted in HPI and below Exam Narrative: Exam Narrative: Patient is comfortable, NAD HEENT: eyes are clear and none icteric LUNGS: bilateral poor air entry with rales and rhonchi HEART: irregularly irregular ABD: BS+, Soft and nontender Lower extremities: no edema SKIN: nonjaundiced Neuro: grossly intact. Objective Data Vital Signs Vital Signs: Vital Signs - 24 hr 01/30/20 20:00 01/30/20 20:27 01/30/20 20:34 Temperature 97.7 F Pulse Rate 73 66 68 Respiratory Rate 22 H 18 18 Blood Pressure 134/66 Pulse Oximetry 92 92 01/30/20 22:00 01/30/20 22:08 01/31/20 00:00 Temperature 97.3 F L Pulse Rate 81 67 75 Respiratory Rate 22 H Blood Pressure 156/56 H Pulse Oximetry 92 01/31/20 02:00 01/31/20 03:00 01/31/20 03:10 Temperature Pulse Rate 71 66 76 Respiratory Rate
--- NOTE | 2020-01-31 17:59 | PC.NURSE ---
This patient, Trent Swartz, was transferred to [facility] on 01/31/20 at 1759. Personal belongings sent with patient. Report given to GREG Pompa. Appropriate documentation sent with patient.
--- NOTE | 2020-01-31 18:16 | PC.NURSE ---
Patient received from IMU room 232. Patient oriented to the room.
[2020-01-31] MEDS: FLUTICASONE PROPIONATE 0.05% NA SPR 16 GM BTL (*BKC) 1 SPRAY NASAL (20:53)
[2020-02-01] VITALS (18 sets, daily range): BP systolic 100–125; BP diastolic 66–70; PULSE 57–92; RESP 12–22; TEMP 36–37.1; O2SAT 92–100
[2020-02-01] MEDS: ALBUTEROL SULFATE NEB 2.5 MG/0.5 ML INH 5 MG INHALATION ×4 (02:20→20:45)
[2020-02-01] MEDS: IPRATROPIUM BR 0.02% INH SOLN 0.5 MG/2.5 ML VIAL INHALATION ×4 (02:20→20:45)
[2020-02-01] MEDS: methylPREDNISolone SOD SUCC 125 MG VIAL 60 MG IV PUSH (05:36)
[2020-02-01 05:46] LABS: Hematocrit 37.8 % (42.0-52.0); Hemoglobin 12.3 g/dL (14.0-18.0); Mean Corpuscular HGB Conc 32.5 g/dl (32-36); Mean Corpuscular Hemoglobin 29.2 pg (26-34); Mean Corpuscular Volume 89.8 fl (80-100); Mean Platelet Volume 10.6 fl (7.4-10.4); Platelet Count Result 211 k/mm3 (150-375); Red Blood Count 4.21 M/mm3 (4.6-6.20); Red Cell Distribution Width 15.1 % (11.5-14.5)
[2020-02-01 06:03] LABS: Alanine Aminotransferase 13 U/L (4-50); Albumin Level 3.7 g/dL (3.5-5.1); Alkaline Phosphatase 71 U/L (38-126); Anion Gap 11 mmol/L (8-16); Aspartate Amino Transferase 37 U/L (17-59); Bilirubin,Total 1.1 mg/dL (0.2-1.3); Blood Urea Nitrogen 46 mg/dL (9-20); Calcium 8.4 mg/dL (8.4-10.2); Carbon Dioxide 33 mmol/L (22-30); Chloride 88 mmol/L (98-107); Estimated CRCL calculation 44 ml/min; Estimated Glomerular Filt Rate 49; Glucose 149 mg/dL (75-110); Potassium 3.5 mmol/L (3.4-5.0); Sodium 132 mmol/L (137-145)
[2020-02-01] MEDS: TAMSULOSIN HCL 0.4 MG CAPSULE PO (08:45)
[2020-02-01] MEDS: PROPRANOLOL HCL 40 MG TABLET PO ×2 (08:45→21:35)
[2020-02-01] MEDS: ROSUVASTATIN 10 MG TABLET 40 MG PO (08:46)
[2020-02-01] MEDS: FUROSEMIDE INJ 40 MG/4 ML VIAL 20 MG IV PUSH (08:46)
[2020-02-01] MEDS: FLUTICASONE PROPIONATE 0.05% NA SPR 16 GM BTL (*BKC) 1 SPRAY NASAL ×2 (08:46→21:35)
[2020-02-01] MEDS: POTASSIUM CHLORIDE 20 MEQ TABLET.ER PO (08:46)
[2020-02-01] MEDS: FINASTERIDE 5 MG TABLET PO (08:46)
[2020-02-01] MEDS: ASPIRIN 81 MG ENTERIC TABLET PO (08:46)
--- NOTE | 2020-02-01 12:33 | PM.IMPN ---
Progress Note: A&P Assessment and Plan (1) Acute respiratory failure with hypoxia: Code(s): J96.01 - Acute respiratory failure with hypoxia Status: Acute Assessment and Plan: More likely due to acute pulmonary edema versus COPD exacerbation. Pt is on IV lasix and oxygen at 1 liter. Rpt CXR and hopefully discharge tomorrow. (2) CHF (congestive heart failure): Qualifiers: Heart failure chronicity: acute on chronic Heart failure type: diastolic Qualified Code(s): I50.33 - Acute on chronic diastolic (congestive) heart failure Code(s): I50.9 - Heart failure, unspecified Status: Acute Assessment and Plan: Continue diuresis. (3) Elevated troponin: Code(s): R77.8 - Other specified abnormalities of plasma proteins Status: Acute Assessment and Plan: Likely secondary to his acute hypoxic event causing demand ischemia. Subjective Date/time seen: 02/01/20 12:33 Interval history: Patient is 75-year-old male with past medical history of COPD and CHF presented emergency department with sudden onset with of shortness of breath patient was placed on BiPAP and was diuresed his symptoms have improved compared to when he arrived however sudden onset of or shortness and had a CTA which was negative for PE. Pt is doing better. Hopeful discharge tomorrow. Review of Systems Review of Systems: All systems reviewed & are unremarkable except as noted in HPI and below Exam Narrative: Exam Narrative: Patient is alert pleasant not in any distress LUNGS: bilateral poor air entry no added sounds HEART: regular ABD: BS+, Soft and nontender Lower extremities: no edema Neuro: grossly intact Objective Data Vital Signs Vital Signs: Vital Signs - 24 hr 01/31/20 14:00 01/31/20 14:12 01/31/20 14:22 Temperature Pulse Rate 70 78 73 Respiratory Rate 20 20 Blood Pressure Pulse Oximetry 92 01/31/20 16:00 01/31/20 20:53 01/31/20 20:55 Temperature 36.8 C Pulse Rate 64 70 80 Respiratory Rate 24 H 20 Blood Pressure 117/53 L Pulse Oximetry 93 92 01/31/20 20:56 01/31/20 22:00 01/31/20 22:35 Temperature 36.6 C Pulse Rate 80 71 Respiratory Rate 20 18 25 H Blood Pressure 101/63 Pulse Oximetry 90 02/01/20 02:00 02/01/20 02:21 02/01/20 06:00 Temperature 36.8 C 36.7 C Pulse Rate 57 L 71 69 Respiratory Rate 22 H 19 16 Blood Pressure 121/66 117/70 Pulse Oximetry 100 97 02/01/20 08:45 02/01/20 09:00 02/01/20 09:29 Temperature Pulse Rate 86 74 Respiratory Rate 20 Blood Pressure Pulse Oximetry 95 02/01/20 09:34 02/01/20 09:37 02/01/20 10:52 Temperature 36.3 C L Pulse Rate 76 58 L Respiratory Rate 20 12 Blood Pressure 100/68 Pulse Oximetry 95 92 Intake/Output Intake/Output: Intake & Output 01/29/20 01/30/20 01/31/20 02/01/20 23:59 23:59 23:59 23:59 Intake Total 200 660 240 Output Total 3525 1800 800 Banner -[id number] Meds/Results Medications: Active Medications Generic Name Dose Route Start Last Admin Trade Name Freq PRN Reason Stop Dose Admin Albuterol 5 mg 01/29/20 20:00 02/01/20 09:29 Albuterol Sulfate Neb 2.5 Mg/0.5 Ml Inh INHALATION 5 mg Q6HRT DESTINY Administration Alprazolam 0.25 mg 01/31/20 11:11 01/31/20 12:08 Alprazolam (*Crx) 0.25 Mg Tablet PO 0.25 mg TID PRN Administration Anxiety Aspirin 81 mg 01/30/20 09:00 02/01/20 08:46 Aspirin 81 Mg Enteric Tablet PO 81 mg QAM DESTINY Administration Budesonide/Formoterol Fumarate 2 puff 01/29/20 20:00 02/01/20 09:29 Budesonide/Form 160-4.5 Mcg (*Sp) INHALATION 2 puff Q12HRT DESTINY Administration Finasteride 5 mg 01/30/20 09:00 02/01/20 08:46 Finasteride 5 Mg Tablet PO 5 mg DAILY DESTINY Administration Fluticasone Propionate 1 spray 01/31/20 21:00 02/01/20 08:46 Fluticasone Propionate 0.05% Na Spr 16 Gm Btl (*Bkc) NASAL 1 spray Q12HR DESTINY Administration Furosemide
--- NOTE | 2020-02-01 15:10 | PC.NURSE ---
On 02/01/20, the student, Mary Beth Garsia, provided care and completed [facility] documentation on this patient. I have reviewed the student's documentation and agree with the findings.
[2020-02-01] MEDS: methylPREDNISolone SOD SUCC 40 MG VIAL IV PUSH ×2 (16:35→21:35)
[2020-02-02] VITALS (18 sets, daily range): BP systolic 108–132; BP diastolic 52–72; PULSE 53–79; RESP 14–18; TEMP 36.2–36.6; O2SAT 92–97
[2020-02-02] MEDS: ALBUTEROL SULFATE NEB 2.5 MG/0.5 ML INH 5 MG INHALATION ×4 (03:06→20:32)
[2020-02-02] MEDS: IPRATROPIUM BR 0.02% INH SOLN 0.5 MG/2.5 ML VIAL INHALATION ×4 (03:06→20:31)
[2020-02-02 05:58] LABS: Hematocrit 37.4 % (42.0-52.0); Hemoglobin 12.2 g/dL (14.0-18.0); Mean Corpuscular HGB Conc 32.6 g/dl (32-36); Mean Platelet Volume 10.9 fl (7.4-10.4); Platelet Count Result 210 k/mm3 (150-375); Red Cell Distribution Width 14.7 % (11.5-14.5); White Blood Count 13.6 K/mm3 (4.5-10.0)
[2020-02-02 06:10] LABS: Alanine Aminotransferase 15 U/L (4-50); Albumin Level 3.6 g/dL (3.5-5.1); Alkaline Phosphatase 90 U/L (38-126); Anion Gap 11 mmol/L (8-16); Aspartate Amino Transferase 35 U/L (17-59); Bilirubin,Total 1.1 mg/dL (0.2-1.3); Blood Urea Nitrogen 57 mg/dL (9-20); Calcium 8.2 mg/dL (8.4-10.2); Carbon Dioxide 33 mmol/L (22-30); Chloride 89 mmol/L (98-107); Estimated CRCL calculation 41 ml/min; Estimated Glomerular Filt Rate 45; Glucose 147 mg/dL (75-110); Sodium 133 mmol/L (137-145)
[2020-02-02] MEDS: methylPREDNISolone SOD SUCC 40 MG VIAL IV PUSH ×3 (07:59→20:44)
[2020-02-02 08:06] LABS: Anion Gap 8 mmol/L (8-16); Blood Urea Nitrogen 59 mg/dL (9-20); Calcium 8.3 mg/dL (8.4-10.2); Carbon Dioxide 36 mmol/L (22-30); Chloride 88 mmol/L (98-107); Estimated CRCL calculation 41 ml/min; Estimated Glomerular Filt Rate 45; Glucose 145 mg/dL (75-110); Potassium 3.6 mmol/L (3.4-5.0); Sodium 132 mmol/L (137-145)
[2020-02-02] MEDS: POTASSIUM CHLORIDE 20 MEQ TABLET.ER PO (08:08)
[2020-02-02] MEDS: ROSUVASTATIN 10 MG TABLET 40 MG PO (08:08)
[2020-02-02] MEDS: ASPIRIN 81 MG ENTERIC TABLET PO (08:08)
[2020-02-02] MEDS: FUROSEMIDE INJ 40 MG/4 ML VIAL 20 MG IV PUSH (08:08)
[2020-02-02] MEDS: PROPRANOLOL HCL 40 MG TABLET PO ×2 (08:09→20:44)
[2020-02-02] MEDS: FLUTICASONE PROPIONATE 0.05% NA SPR 16 GM BTL (*BKC) 1 SPRAY NASAL ×2 (08:09→20:44)
[2020-02-02] MEDS: TAMSULOSIN HCL 0.4 MG CAPSULE PO (08:10)
[2020-02-02] MEDS: FINASTERIDE 5 MG TABLET PO (08:10)
--- NOTE | 2020-02-02 12:05 | PM.IMPN ---
Progress Note: A&P Assessment and Plan (1) Acute respiratory failure with hypoxia: Code(s): J96.01 - Acute respiratory failure with hypoxia Status: Acute Assessment and Plan: More likely due to acute pulmonary edema versus COPD exacerbation. Pt is on IV lasix and oxygen at 1 liter. CXR still shows pulmonary edema, continue iv diuresis. Pt may need diuresis for 1-2 more days. Pt will need home oxygen assessment prior to discharge. (2) CHF (congestive heart failure): Qualifiers: Heart failure chronicity: acute on chronic Heart failure type: diastolic Qualified Code(s): I50.33 - Acute on chronic diastolic (congestive) heart failure Code(s): I50.9 - Heart failure, unspecified Status: Acute Assessment and Plan: Continue diuresis. (3) Elevated troponin: Code(s): R77.8 - Other specified abnormalities of plasma proteins Status: Acute Assessment and Plan: Likely secondary to his acute hypoxic event causing demand ischemia. Subjective Date/time seen: 02/02/20 12:05 Interval history: Patient is 75-year-old male with past medical history of COPD and CHF presented emergency department with sudden onset with of shortness of breath patient was placed on BiPAP and was diuresed his symptoms have improved compared to when he arrived however sudden onset of or shortness and had a CTA which was negative for PE. Pt is doing better, however desats when oxygen is removed, CXR today still shows pulmonary edema, pt to continue with iv diuresis in the hospital. Review of Systems Review of Systems: All systems reviewed & are unremarkable except as noted in HPI and below Exam Narrative: Exam Narrative: Patient is alert pleasant not in any distress, on 1 liter of oxygen LUNGS: bilateral poor air entry, few scattered wheezes HEART: regular ABD: BS+, Soft and nontender Lower extremities: no edema Neuro: grossly intact Objective Data Vital Signs Vital Signs: Vital Signs - 24 hr 02/01/20 14:21 02/01/20 14:28 02/01/20 14:38 Temperature 36.0 C L Pulse Rate 66 70 74 Respiratory Rate 16 16 20 Blood Pressure 125/68 Pulse Oximetry 97 02/01/20 18:00 02/01/20 20:00 02/01/20 20:46 Temperature 37.1 C Pulse Rate 88 61 Respiratory Rate 19 18 Blood Pressure 106/67 Pulse Oximetry 93 97 02/01/20 20:51 02/01/20 21:00 02/01/20 21:35 Temperature 36.4 C Pulse Rate 61 92 87 Respiratory Rate 18 20 Blood Pressure 109/70 Pulse Oximetry 92 96 02/02/20 02:00 02/02/20 03:06 02/02/20 05:50 Temperature 36.6 C 36.6 C Pulse Rate 53 L 58 L 68 Respiratory Rate 18 18 18 Blood Pressure 118/67 123/59 L Pulse Oximetry 96 96 02/02/20 08:09 02/02/20 08:10 02/02/20 08:56 Temperature Pulse Rate 68 62 Respiratory Rate 18 18 Blood Pressure Pulse Oximetry 92 02/02/20 08:57 02/02/20 09:05 02/02/20 10:00 Temperature 36.3 C L Pulse Rate 62 62 79 Respiratory Rate 18 18 16 Blood Pressure 130/72 Pulse Oximetry 93 97 Intake/Output Intake/Output: Intake & Output 01/30/20 01/31/20 02/01/20 02/02/20 23:59 23:59 23:59 23:59 Intake Total 254 995 8235 460 Output Total 3525 1800 1600 200 [facility] -[phone] -1140 -320 260 Meds/Results Medications: Active Medications Generic Name Dose Route Start Last Admin Trade Name Freq PRN Reason Stop Dose Admin Albuterol 5 mg 01/29/20 20:00 02/02/20 08:51 Albuterol Sulfate Neb 2.5 Mg/0.5 Ml Inh INHALATION 5 mg Q6HRT DESTINY Administration Alprazolam 0.25 mg 01/31/20 11:11 01/31/20 12:08 Alprazolam (*Crx) 0.25 Mg Tablet PO 0.25 mg TID PRN Administration Anxiety Aspirin 81 mg 01/30/20 09:00 02/02/20 08:08 Aspirin 81 Mg Enteric Tablet PO 81 mg QAM DESTINY Administration Budesonide/Formoterol Fumarate 2 puff 01/29/20 20:00 02/02/20 08:52 Budesonide/Form 160-4.5 Mcg (*Sp) INHALATION 2 puff Q12HRT DESTINY Administration Finasteride 5 mg 01/30/20 09
[2020-02-03] VITALS (24 sets, daily range): BP systolic 111–129; BP diastolic 55–73; PULSE 54–90; RESP 15–21; TEMP 36.3–36.9; O2SAT 86–96
[2020-02-03] MEDS: ALBUTEROL SULFATE NEB 2.5 MG/0.5 ML INH 5 MG INHALATION ×4 (03:13→21:06)
[2020-02-03] MEDS: IPRATROPIUM BR 0.02% INH SOLN 0.5 MG/2.5 ML VIAL INHALATION ×4 (03:13→21:06)
[2020-02-03 05:52] LABS: Hematocrit 38.2 % (42.0-52.0); Hemoglobin 12.4 g/dL (14.0-18.0); Mean Corpuscular HGB Conc 32.5 g/dl (32-36); Mean Corpuscular Hemoglobin 29.2 pg (26-34); Mean Corpuscular Volume 90.1 fl (80-100); Mean Platelet Volume 10.6 fl (7.4-10.4); Platelet Count Result 170 k/mm3 (150-375); Red Blood Count 4.24 M/mm3 (4.6-6.20); Red Cell Distribution Width 14.6 % (11.5-14.5); White Blood Count 11.2 K/mm3 (4.5-10.0)
[2020-02-03 06:02] LABS: Alanine Aminotransferase 17 U/L (4-50); Albumin Level 3.4 g/dL (3.5-5.1); Alkaline Phosphatase 88 U/L (38-126); Anion Gap 10 mmol/L (8-16); Aspartate Amino Transferase 32 U/L (17-59); Bilirubin,Total 0.8 mg/dL (0.2-1.3); Blood Urea Nitrogen 56 mg/dL (9-20); Calcium 8.2 mg/dL (8.4-10.2); Carbon Dioxide 33 mmol/L (22-30); Chloride 91 mmol/L (98-107); Estimated CRCL calculation 44 ml/min; Estimated Glomerular Filt Rate 49; Glucose 180 mg/dL (75-110); Sodium 134 mmol/L (137-145)
[2020-02-03] MEDS: methylPREDNISolone SOD SUCC 40 MG VIAL IV PUSH ×3 (06:07→21:40)
[2020-02-03] MEDS: FUROSEMIDE INJ 40 MG/4 ML VIAL 20 MG IV PUSH (08:58)
[2020-02-03] MEDS: FLUTICASONE PROPIONATE 0.05% NA SPR 16 GM BTL (*BKC) 1 SPRAY NASAL ×2 (08:58→21:40)
[2020-02-03] MEDS: FINASTERIDE 5 MG TABLET PO (08:58)
[2020-02-03] MEDS: ASPIRIN 81 MG ENTERIC TABLET PO (08:58)
[2020-02-03] MEDS: POTASSIUM CHLORIDE 20 MEQ TABLET.ER PO (08:59)
[2020-02-03] MEDS: PROPRANOLOL HCL 40 MG TABLET PO ×2 (08:59→21:40)
[2020-02-03] MEDS: TAMSULOSIN HCL 0.4 MG CAPSULE PO (09:00)
[2020-02-03] MEDS: ROSUVASTATIN 10 MG TABLET 40 MG PO (09:00)
--- NOTE | 2020-02-03 13:21 | PM.IMPN ---
Progress Note: A&P Assessment and Plan (1) Acute respiratory failure with hypoxia: Code(s): J96.01 - Acute respiratory failure with hypoxia Status: Acute Assessment and Plan: More likely due to acute pulmonary edema versus COPD exacerbation. Pt is on IV lasix and oxygen at 1 liter. CXR still shows pulmonary edema, continue iv diuresis. Pt may need diuresis for 1-2 more days. Pt will need home oxygen assessment prior to discharge. (2) CHF (congestive heart failure): Qualifiers: Heart failure chronicity: acute on chronic Heart failure type: diastolic Qualified Code(s): I50.33 - Acute on chronic diastolic (congestive) heart failure Code(s): I50.9 - Heart failure, unspecified Status: Acute Assessment and Plan: Continue diuresis. (3) Elevated troponin: Code(s): R77.8 - Other specified abnormalities of plasma proteins Status: Acute Assessment and Plan: Likely secondary to his acute hypoxic event causing demand ischemia. Subjective Date/time seen: 02/03/20 13:21 Interval history: Patient is 75-year-old male with past medical history of COPD and CHF presented emergency department with sudden onset with of shortness of breath patient was placed on BiPAP and was diuresed his symptoms have improved compared to when he arrived however sudden onset of or shortness and had a CTA which was negative for PE. Pt is doing better, however desats when oxygen is removed, pt still needing oxygen, pt to continue with iv diuresis in the hospital. Pt will need six minute walk prior to discharge. Review of Systems Review of Systems: All systems reviewed & are unremarkable except as noted in HPI and below Exam Narrative: Exam Narrative: Patient is alert pleasant not in any distress, on 1 liter of oxygen LUNGS: bilateral poor air entry, few scattered wheezes HEART: regular ABD: BS+, Soft and nontender Lower extremities: no edema Neuro: grossly intact Objective Data Vital Signs Vital Signs: Vital Signs - 24 hr 02/02/20 14:00 02/02/20 14:04 02/02/20 18:00 Temperature 36.2 C L 36.6 C Pulse Rate 53 L 61 66 Respiratory Rate 16 18 14 Blood Pressure 122/56 L 108/52 L Pulse Oximetry 96 96 02/02/20 20:00 02/02/20 20:34 02/02/20 20:41 Temperature Pulse Rate 68 66 61 Respiratory Rate 16 18 18 Blood Pressure Pulse Oximetry 96 95 02/02/20 20:42 02/02/20 20:44 02/02/20 20:48 Temperature 36.6 C Pulse Rate 59 L 72 68 Respiratory Rate 18 16 Blood Pressure 132/59 L Pulse Oximetry 96 02/03/20 00:00 02/03/20 03:15 02/03/20 03:21 Temperature 36.6 C Pulse Rate 69 69 54 L Respiratory Rate 18 18 18 Blood Pressure 122/70 Pulse Oximetry 94 02/03/20 05:59 02/03/20 08:31 02/03/20 08:39 Temperature 36.4 C Pulse Rate 54 L 62 76 Respiratory Rate 20 18 18 Blood Pressure 129/55 L Pulse Oximetry 96 92 02/03/20 08:59 02/03/20 10:36 Temperature 36.9 C Pulse Rate 76 63 Respiratory Rate 17 Blood Pressure 121/73 Pulse Oximetry 91 Intake/Output Intake/Output: Intake & Output 01/31/20 02/01/20 02/02/20 02/03/20 23:59 23:59 23:59 23:59 Intake Total 660 1280 1250 440 Output Total 1800 1600 675 220 Balance -1140 -320 575 220 Meds/Results Medications: Active Medications Generic Name Dose Route Start Last Admin Trade Name Kdq PRN Reason Stop Dose Admin Albuterol 5 mg 01/29/20 20:00 02/03/20 08:29 Albuterol Sulfate Neb 2.5 Mg/0.5 Ml Inh INHALATION 5 mg Q6HRT DESTINY Administration Alprazolam 0.25 mg 01/31/20 11:11 01/31/20 12:08 Alprazolam (*Crx) 0.25 Mg Tablet PO 0.25 mg TID PRN Administration Anxiety Aspirin 81 mg 01/30/20 09:00 02/03/20 08:58 Aspirin 81 Mg Enteric Tablet PO 81 mg QAM DESTINY Administration Budesonide/Formoterol Fumarate 2 puff 01/29/20 20:00 02/03/20 08:29 Budesonide/Form 160-4.5 Mcg (*Sp) INHALATION 2 puff Q12HRT DESTINY Administration Finasteri
--- NOTE | 2020-02-03 14:43 | PCRCNOTE ---
HOME O2 EVAL COMPLETE, 1 LITER AT REST AND 3 LITERS WITH ACTIVITY. NO SET UP DUE TO PT [facility]ING [facility]
[2020-02-03] MEDS: POTASSIUM CHLORIDE 20 MEQ PACKET (FOR LIQUID) 40 MEQ PO (18:29)
[2020-02-04] VITALS (16 sets, daily range): BP systolic 115–145; BP diastolic 56–80; PULSE 56–87; RESP 18–22; TEMP 36.3–37.1; O2SAT 91–99
[2020-02-04] MEDS: ALBUTEROL SULFATE NEB 2.5 MG/0.5 ML INH 5 MG INHALATION ×3 (02:31→14:30)
[2020-02-04] MEDS: IPRATROPIUM BR 0.02% INH SOLN 0.5 MG/2.5 ML VIAL INHALATION ×3 (02:32→14:30)
[2020-02-04] MEDS: methylPREDNISolone SOD SUCC 40 MG VIAL IV PUSH ×3 (05:03→22:28)
[2020-02-04 07:44] LABS: Glucose Point of Care 173 (65-105)
[2020-02-04 07:55] LABS: Alanine Aminotransferase 20 U/L (4-50); Albumin Level 3.6 g/dL (3.5-5.1); Alkaline Phosphatase 87 U/L (38-126); Anion Gap 9 mmol/L (8-16); Aspartate Amino Transferase 32 U/L (17-59); Bilirubin,Total 1.3 mg/dL (0.2-1.3); Blood Urea Nitrogen 63 mg/dL (9-20); Calcium 8.3 mg/dL (8.4-10.2); Carbon Dioxide 35 mmol/L (22-30); Chloride 90 mmol/L (98-107); Estimated CRCL calculation 47 ml/min; Estimated Glomerular Filt Rate 54; Glucose 167 mg/dL (75-110); Potassium 3.9 mmol/L (3.4-5.0); Sodium 134 mmol/L (137-145)
[2020-02-04 08:10] LABS: Hematocrit 39.3 % (42.0-52.0); Hemoglobin 12.6 g/dL (14.0-18.0); Mean Corpuscular HGB Conc 32.1 g/dl (32-36); Mean Corpuscular Hemoglobin 28.9 pg (26-34); Mean Corpuscular Volume 90.1 fl (80-100); Mean Platelet Volume 10.9 fl (7.4-10.4); Platelet Count Result 188 k/mm3 (150-375); Red Blood Count 4.36 M/mm3 (4.6-6.20); Red Cell Distribution Width 14.6 % (11.5-14.5)
[2020-02-04] MEDS: PROPRANOLOL HCL 40 MG TABLET PO ×2 (08:27→22:28)
[2020-02-04] MEDS: FLUTICASONE PROPIONATE 0.05% NA SPR 16 GM BTL (*BKC) 1 SPRAY NASAL ×2 (08:27→22:28)
[2020-02-04] MEDS: ROSUVASTATIN 10 MG TABLET 40 MG PO (08:27)
[2020-02-04] MEDS: POTASSIUM CHLORIDE 20 MEQ PACKET (FOR LIQUID) 40 MEQ PO ×2 (08:27→18:43)
[2020-02-04] MEDS: ASPIRIN 81 MG ENTERIC TABLET PO (08:28)
[2020-02-04] MEDS: TAMSULOSIN HCL 0.4 MG CAPSULE PO (08:28)
[2020-02-04] MEDS: FUROSEMIDE INJ 40 MG/4 ML VIAL 20 MG IV PUSH (08:28)
[2020-02-04] MEDS: FINASTERIDE 5 MG TABLET PO (08:28)
--- NOTE | 2020-02-04 11:41 | PM.IMPN ---
Progress Note: A&P Assessment and Plan (1) Acute respiratory failure with hypoxia: Code(s): J96.01 - Acute respiratory failure with hypoxia Status: Acute Assessment and Plan: More likely due to acute pulmonary edema versus COPD exacerbation. Pt is on IV lasix and oxygen at 1 liter. CXR still shows pulmonary edema, continue iv diuresis. Pt may need diuresis for 1-2 more days. [facility] going [facility] th[facility]. Will need oxygen. (2) CHF (congestive heart failure): Qualifiers: Heart failure chronicity: acute on chronic Heart failure type: diastolic Qualified Code(s): I50.33 - Acute on chronic diastolic (congestive) heart failure Code(s): I50.9 - Heart failure, unspecified Status: Acute Assessment and Plan: Continue diuresis. (3) Elevated troponin: Code(s): R77.8 - Other specified abnormalities of plasma proteins Status: Acute Assessment and Plan: Likely secondary to his acute hypoxic event causing demand ischemia. Subjective Date/time seen: 02/04/20 11:41 Interval history: Patient is 75-year-old male with past medical history of COPD and CHF presented emergency department with sudden onset with of shortness of breath patient was placed on BiPAP and was diuresed his symptoms have improved compared to when he arrived however sudden onset of or shortness and had a CTA which was negative for PE. Pt is doing better, however desats when oxygen is removed, pt still needing oxygen, pt to continue with iv diuresis in the hospital. Pt needs 1 liter on resting and 3 liters on ambulation. Pt will be discharged to facility tomorrow. Review of Systems Review of Systems: All systems reviewed & are unremarkable except as noted in HPI and below Exam Narrative: Exam Narrative: Patient is alert pleasant not in any distress, on 1 liter of oxygen LUNGS: bilateral poor air entry, few scattered wheezes HEART: regular ABD: BS+, Soft and nontender Lower extremities: no edema Neuro: grossly intact Objective Data Vital Signs Vital Signs: Vital Signs - 24 hr 02/03/20 14:00 02/03/20 14:10 02/03/20 14:13 Temperature 36.4 C Pulse Rate 87 69 59 L Respiratory Rate 17 18 Blood Pressure 111/55 L Pulse Oximetry 96 87 L 02/03/20 14:15 02/03/20 14:20 02/03/20 14:23 Temperature Pulse Rate 66 82 66 Respiratory Rate 18 Blood Pressure Pulse Oximetry 90 86 L 02/03/20 14:25 02/03/20 14:30 02/03/20 14:40 Temperature Pulse Rate 90 64 Respiratory Rate Blood Pressure Pulse Oximetry 89 L 91 90 02/03/20 19:26 02/03/20 20:00 02/03/20 21:05 Temperature 36.3 C L Pulse Rate 84 67 Respiratory Rate 15 18 Blood Pressure 113/70 Pulse Oximetry 92 92 02/03/20 21:19 02/03/20 21:20 02/03/20 21:40 Temperature Pulse Rate 67 86 Respiratory Rate 18 Blood Pressure Pulse Oximetry 93 02/03/20 23:00 02/04/20 00:00 02/04/20 02:25 Temperature 36.4 C L Pulse Rate 67 65 62 Respiratory Rate 21 H 20 18 Blood Pressure 145/75 H Pulse Oximetry 94 99 02/04/20 02:33 02/04/20 02:42 02/04/20 04:00 Temperature 36.3 C L Pulse Rate 63 63 57 L Respiratory Rate 20 18 18 Blood Pressure 142/64 H Pulse Oximetry 97 95 02/04/20 08:27 02/04/20 08:40 02/04/20 09:30 Temperature Pulse Rate 57 L 68 Respiratory Rate 18 Blood Pressure Pulse Oximetry 92 92 02/04/20 09:40 02/04/20 10:00 Temperature 36.3 C L Pulse Rate 67 71 Respiratory Rate 18 18 Blood Pressure 138/73 Pulse Oximetry 92 Intake/Output Intake/Output: Intake & Output 02/01/20 02/02/20 02/03/20 02/04/20 23:59 23:59 23:59 23:59 Intake Total 1280 1250 1270 430 Output Total 1600 675 220 400 Balance -059 681 8108 30 Meds/Results Medications: Active Medications Generic Name Dose Route Start Last Admin Trade Name Julio PRN Reason Stop Dose Admin Albuterol 5 mg 01/29/20 20:00 02/04/20 09:32 Albuterol Sulfate Neb
[2020-02-04 13:34] LABS: SARS-CoV-2 RNA PCR Positive
[2020-02-04] MEDS: ALPRAZolam (*CRX) 0.25 MG TABLET PO (22:28)
[2020-02-04 22:40] LABS: Glucose Point of Care 147 (65-105)
[2020-02-05] VITALS (14 sets, daily range): BP systolic 99–152; BP diastolic 58–78; PULSE 56–83; RESP 20–24; TEMP 36.1–37.1; O2SAT 84–94
[2020-02-05] MEDS: methylPREDNISolone SOD SUCC 40 MG VIAL IV PUSH (06:38)
[2020-02-05 07:14] LABS: Hematocrit 39.7 % (42.0-52.0); Hemoglobin 12.4 g/dL (14.0-18.0); Mean Corpuscular HGB Conc 31.2 g/dl (32-36); Mean Corpuscular Hemoglobin 28.2 pg (26-34); Mean Corpuscular Volume 90.2 fl (80-100); Mean Platelet Volume 10.9 fl (7.4-10.4); Platelet Count Result 192 k/mm3 (150-375); Red Cell Distribution Width 14.6 % (11.5-14.5); White Blood Count 10.9 K/mm3 (4.5-10.0)
[2020-02-05 07:42] LABS: Albumin Level 3.8 g/dL (3.5-5.1); Alkaline Phosphatase 84 U/L (38-126); Anion Gap 9 mmol/L (8-16); Aspartate Amino Transferase 45 U/L (17-59); Bilirubin,Total 1.5 mg/dL (0.2-1.3); Blood Urea Nitrogen 59 mg/dL (9-20); Calcium 8.2 mg/dL (8.4-10.2); Carbon Dioxide 35 mmol/L (22-30); Chloride 88 mmol/L (98-107); Estimated CRCL calculation 44 ml/min; Estimated Glomerular Filt Rate 49; Glucose 177 mg/dL (75-110); Potassium 4.6 mmol/L (3.4-5.0); Sodium 132 mmol/L (137-145)
[2020-02-05] MEDS: ALBUTEROL SULFATE (*SP) INHALER 1 PUFF (08:09)
[2020-02-05 08:33] LABS: Alanine Aminotransferase 26 U/L (4-50)
[2020-02-05] MEDS: FINASTERIDE 5 MG TABLET PO (09:43)
[2020-02-05] MEDS: FLUTICASONE PROPIONATE 0.05% NA SPR 16 GM BTL (*BKC) 1 SPRAY NASAL ×2 (09:43→20:56)
[2020-02-05] MEDS: ASPIRIN 81 MG ENTERIC TABLET PO (09:43)
[2020-02-05] MEDS: POTASSIUM CHLORIDE 20 MEQ PACKET (FOR LIQUID) 40 MEQ PO ×2 (09:43→18:12)
[2020-02-05] MEDS: FUROSEMIDE INJ 40 MG/4 ML VIAL 20 MG IV PUSH ×2 (09:43→18:12)
[2020-02-05] MEDS: PROPRANOLOL HCL 40 MG TABLET PO ×2 (09:44→20:55)
[2020-02-05] MEDS: ROSUVASTATIN 10 MG TABLET 40 MG PO (09:44)
--- NOTE | 2020-02-05 10:31 | PM.IMPN ---
Progress Note: A&P Assessment and Plan (1) Acute respiratory failure with hypoxia: Code(s): J96.01 - Acute respiratory failure with hypoxia Status: Acute Assessment and Plan: Likely due to SARS COV 2 pna. His symptom onset is less than 10 days ago for instance he was started on remdesivir and dexamethasone today. D dimer on admission 2.72 conferring high risk of thrombotic complications due to COVID 19, started on high dose prophylaxis with Lovenox 40 mg BID. No evidence of PE on CTA on admission, venous dopplers negative for DVT. (2) CHF (congestive heart failure): Qualifiers: Heart failure chronicity: acute on chronic Heart failure type: diastolic Qualified Code(s): I50.33 - Acute on chronic diastolic (congestive) heart failure Code(s): I50.9 - Heart failure, unspecified Status: Acute Assessment and Plan: Echo showed diastolic dysfunction, he still has some pulmonary edema on CXR. Continue diuretics, I will go up on his Lasix dose to 20 mg BID. (3) Elevated troponin: Code(s): R77.8 - Other specified abnormalities of plasma proteins Status: Acute Assessment and Plan: Likely secondary to his acute hypoxic event causing demand ischemia. No symptoms to suggest ACS. (4) Chronic kidney disease, stage 3: Code(s): N18.3 - Chronic kidney disease, stage 3 (moderate) Status: Acute Assessment and Plan: Stable, monitor while on diuretics. (5) Chronic atrial fibrillation: Code(s): I48.20 - Chronic atrial fibrillation, unspecified Status: Acute Assessment and Plan: He sounds on sinus rhythm today. Not on AC due to severe anemia in the past, his Hb is stable now. Monitor Hb while on high dose prophylaxis with lovenox. Subjective Date/time seen: No new complains, still having dry cough, remains on 6L nc. 02/05/20 10:31 Review of Systems Review of Systems: All systems reviewed & are unremarkable except as noted in HPI and below Exam Const: General: no acute distress, alert and awake Neck: Neck: supple Resp: Effort & Inspection: able to speak in complete sentences Auscultation: crackles, rhonchi and diminished lung sounds Cardio: Jugular venous distension: no JVD Rate: regular rate Rhythm: regular rhythm Heart sounds: S1 normal heart sound present and S2 normal heart sound present GI: GI Palp: Yes Soft to palpation Auscultation: normal bowel sounds Skin: General skin exam: no rashes or lesions noted Neuro: General: patient oriented x3, moves all extremities and no focal motor deficits Extrem: General: no clubbing, cyanosis or edema Objective Data Vital Signs Vital Signs: Vital Signs - 24 hr 02/04/20 14:00 02/04/20 14:35 02/04/20 14:45 Temperature 98.5 F Pulse Rate 67 65 67 Respiratory Rate 18 18 18 Blood Pressure 115/56 L Pulse Oximetry 91 02/04/20 18:00 02/04/20 20:00 02/04/20 22:28 Temperature 97.5 F L 98.7 F Pulse Rate 87 56 L 80 Respiratory Rate 18 22 H Blood Pressure 120/61 140/80 Pulse Oximetry 91 91 02/05/20 00:00 02/05/20 02:00 02/05/20 04:00 Temperature 97.9 F 98.8 F Pulse Rate 67 79 Respiratory Rate 24 H 20 Blood Pressure 152/78 H 126/78 Pulse Oximetry 90 94 94 02/05/20 08:00 02/05/20 08:21 Temperature 98.5 F Pulse Rate 56 L Respiratory Rate 20 Blood Pressure 131/58 L Pulse Oximetry 90 91 Intake/Output Intake/Output: Intake & Output 02/02/20 02/03/20 02/04/20 02/05/20 23:59 23:59 23:59 23:59 Intake Total 1250 1270 1320 300 Output Total 428 648 0258 250 Balance 575 1050 170 50 Meds/Results Medications: Active Medications Generic Name Dose Route Start Last Admin Trade Name Freq PRN Reason Stop Dose Admin Albuterol 2 puff 02/04/20 22:50 Albuterol Sulfate (*Sp) Aerosol 1 Puff INHALATION Q6-8H DESTINY Alprazolam 0.25 mg 01/31/20 11:11 02/04/20 22:28 Alprazolam (*Crx) 0.2
[2020-02-05] MEDS: DEXAMETHASONE SOD PHOS INJ 4 MG/ML VIAL 6 MG IV PUSH (11:26)
[2020-02-05] MEDS: REMDESIVIR 200 MG/NS 250 ML 200 MG/250 ML BAG 250 MG IVPB (11:27)
[2020-02-05] MEDS: ENOXAPARIN 40 MG/0.4 ML SYRINGE SUB-Q ×2 (11:27→20:56)
[2020-02-05] MEDS: TAMSULOSIN HCL 0.4 MG CAPSULE PO (12:49)
[2020-02-05] MEDS: ALBUTEROL SULFATE (*SP) AEROSOL 1 PUFF 2 PUFF INHALATION ×2 (13:43→21:21)
[2020-02-05] MEDS: ALPRAZolam (*CRX) 0.25 MG TABLET PO (21:00)
[2020-02-06] VITALS (14 sets, daily range): BP systolic 106–149; BP diastolic 59–95; PULSE 53–77; RESP 20–24; TEMP 36–37.2; O2SAT 86–96
[2020-02-06] MEDS: ALBUTEROL SULFATE (*SP) AEROSOL 1 PUFF 2 PUFF INHALATION ×2 (01:59→09:50)
[2020-02-06 06:46] LABS: Hematocrit 41.8 % (42.0-52.0); Hemoglobin 13.7 g/dL (14.0-18.0); Mean Corpuscular HGB Conc 32.8 g/dl (32-36); Mean Corpuscular Hemoglobin 28.9 pg (26-34); Mean Corpuscular Volume 88.2 fl (80-100); Mean Platelet Volume 11.4 fl (7.4-10.4); Platelet Count Result 211 k/mm3 (150-375); Red Blood Count 4.74 M/mm3 (4.6-6.20); Red Cell Distribution Width 14.6 % (11.5-14.5); White Blood Count 11.9 K/mm3 (4.5-10.0)
[2020-02-06 07:01] LABS: Alanine Aminotransferase 28 U/L (4-50); Albumin Level 3.9 g/dL (3.5-5.1); Alkaline Phosphatase 93 U/L (38-126); Anion Gap 9 mmol/L (8-16); Aspartate Amino Transferase 48 U/L (17-59); Bilirubin,Total 1.3 mg/dL (0.2-1.3); Blood Urea Nitrogen 57 mg/dL (9-20); Calcium 8.1 mg/dL (8.4-10.2); Carbon Dioxide 34 mmol/L (22-30); Chloride 89 mmol/L (98-107); Estimated CRCL calculation 47 ml/min; Estimated Glomerular Filt Rate 54; Glucose 147 mg/dL (75-110); Potassium 4.6 mmol/L (3.4-5.0); Sodium 132 mmol/L (137-145)
[2020-02-06] MEDS: PROPRANOLOL HCL 40 MG TABLET PO ×2 (08:40→21:42)
[2020-02-06] MEDS: ROSUVASTATIN 10 MG TABLET 40 MG PO (08:40)
[2020-02-06] MEDS: ENOXAPARIN 40 MG/0.4 ML SYRINGE SUB-Q ×2 (08:41→21:42)
[2020-02-06] MEDS: DEXAMETHASONE SOD PHOS INJ 4 MG/ML VIAL 6 MG IV PUSH (08:41)
[2020-02-06] MEDS: FINASTERIDE 5 MG TABLET PO (08:41)
[2020-02-06] MEDS: POTASSIUM CHLORIDE 20 MEQ PACKET (FOR LIQUID) 40 MEQ PO ×2 (08:41→18:01)
[2020-02-06] MEDS: TAMSULOSIN HCL 0.4 MG CAPSULE PO (08:41)
[2020-02-06] MEDS: ASPIRIN 81 MG ENTERIC TABLET PO (08:41)
[2020-02-06] MEDS: FLUTICASONE PROPIONATE 0.05% NA SPR 16 GM BTL (*BKC) 1 SPRAY NASAL ×2 (08:42→21:42)
[2020-02-06] MEDS: FUROSEMIDE INJ 40 MG/4 ML VIAL 20 MG IV PUSH ×2 (08:42→18:01)
--- NOTE | 2020-02-06 11:30 | PM.IMPN ---
Progress Note: A&P Assessment and Plan (1) Acute respiratory failure with hypoxia: Code(s): J96.01 - Acute respiratory failure with hypoxia Status: Acute Assessment and Plan: Likely due to SARS COV 2 pna. His symptom onset is less than 10 days ago for instance he was started on remdesivir and dexamethasone yesterday. D dimer on admission 2.72 conferring high risk of thrombotic complications due to COVID 19, started on high dose prophylaxis with Lovenox 40 mg BID. No evidence of PE on CTA on admission, venous dopplers negative for DVT. (2) CHF (congestive heart failure): Qualifiers: Heart failure chronicity: acute on chronic Heart failure type: diastolic Qualified Code(s): I50.33 - Acute on chronic diastolic (congestive) heart failure Code(s): I50.9 - Heart failure, unspecified Status: Acute Assessment and Plan: Echo showed diastolic dysfunction, he still has some pulmonary edema on CXR. Continue diuretics, I will go up on his Lasix dose to 20 mg BID. (3) Elevated troponin: Code(s): R77.8 - Other specified abnormalities of plasma proteins Status: Acute Assessment and Plan: Likely secondary to his acute hypoxic event causing demand ischemia. No symptoms to suggest ACS. (4) Chronic kidney disease, stage 3: Code(s): N18.3 - Chronic kidney disease, stage 3 (moderate) Status: Acute Assessment and Plan: Stable, monitor while on diuretics. (5) Chronic atrial fibrillation: Code(s): I48.20 - Chronic atrial fibrillation, unspecified Status: Acute Assessment and Plan: Not on AC due to severe anemia in the past, his Hb is stable now. Monitor Hb while on high dose prophylaxis with lovenox. Subjective Date/time seen: He denies new symptoms, he is on 10 L high flow oxygen, not in respiratory distress by the time I saw him. Code status was discussed, he would like to remain a full code. 02/06/20 11:30 Review of Systems Review of Systems: All systems reviewed & are unremarkable except as noted in HPI and below Exam Const: General: no acute distress, alert and awake Orientation/consciousness: patient oriented x3 Neck: Neck: supple Resp: Effort & Inspection: able to speak in complete sentences Auscultation: crackles, rhonchi and diminished lung sounds Cardio: Jugular venous distension: no JVD Rhythm: abnormal rhythm Heart sounds: S1 normal heart sound present and S2 normal heart sound present Other: Irregularly irregular rhythm , no tachycardia or bradycardia. GI: Auscultation: normal bowel sounds Skin: General skin exam: no rashes or lesions noted Neuro: General: patient oriented x3, moves all extremities and no focal motor deficits Extrem: General: no clubbing, cyanosis or edema Objective Data Vital Signs Vital Signs: Vital Signs - 24 hr 02/05/20 11:43 02/05/20 11:44 02/05/20 12:00 Temperature 97.0 F L Pulse Rate 66 Respiratory Rate 20 Blood Pressure 113/58 L Pulse Oximetry 84 L 90 93 02/05/20 16:00 02/05/20 20:00 02/05/20 20:55 Temperature 97.0 F L 97.9 F Pulse Rate 78 67 74 Respiratory Rate 20 24 H Blood Pressure 99/59 L 125/75 Pulse Oximetry 91 93 02/05/20 21:00 02/05/20 21:22 02/05/20 21:24 Temperature Pulse Rate 68 Respiratory Rate 24 H 20 Blood Pressure Pulse Oximetry 93 92 02/06/20 00:00 02/06/20 00:05 02/06/20 01:59 Temperature 97.3 F L Pulse Rate 69 73 76 Respiratory Rate 22 H 24 H Blood Pressure 143/85 H Pulse Oximetry 95 02/06/20 02:02 02/06/20 02:20 02/06/20 02:24 Temperature Pulse Rate Respiratory Rate Blood Pressure Pulse Oximetry 91 86 L 90 02/06/20 04:00 02/06/20 08:40 Temperature 98.9 F 97.0 F L Pulse Rate 66 70 Respiratory Rate 22 H 20 Blood Pressure 149/95 H 148/84 H Pulse Oximetry 95 96 Intake/Output Intake/Output: Intake & Output 02/03/2002/03
[2020-02-06] MEDS: REMDESIVIR 100 MG/NS 250 ML 100 MG/250 ML BAG 250 MG IVPB (11:34)
--- NOTE | 2020-02-06 11:47 | PCNWS ---
Weekly nutritional screen. Patient is tolerating current diet with adequate intake. No weight loss reported. No nutritional needs at this time.
[2020-02-07] VITALS (20 sets, daily range): BP systolic 106–116; BP diastolic 58–79; PULSE 60–90; RESP 20–22; TEMP 35.9–36.7; O2SAT 72–98
[2020-02-07] MEDS: ACETAMINOPHEN 325 MG TABLET 650 MG PO ×2 (01:52→10:55)
[2020-02-07 06:24] LABS: Basophils Percent Auto 0.2 % (0.2-1.2); Hematocrit 42.2 % (42.0-52.0); Hemoglobin 13.5 g/dL (14.0-18.0); Immature Granulocyte Absolute 0.29 K/mm3 (0.00-0.031); Immature Granulocyte Percent A 2.1 % (0-0.5); Lymphocytes Absolute Auto 0.37 K/mm3 (0.9-3.2); Lymphocytes Percent Auto 2.6 % (18.3-44.2); Mean Corpuscular Hemoglobin 28.9 pg (26-34); Mean Corpuscular Volume 90.4 fl (80-100); Mean Platelet Volume 11.6 fl (7.4-10.4); Monocytes Absolute Auto 0.9 K/mm3 (0.1-0.6); Monocytes Percent Auto 6.2 % (2.6-8.5); Neutrophils Absolute Auto 12.5 K/mm3 (1.3-6.7); Neutrophils Percent Auto 88.9 % (45.5-73.1); Nucleated Red Blood Cells Perc 0.2 % (0.0-0.2); Platelet Count Result 169 k/mm3 (150-375); Red Blood Count 4.67 M/mm3 (4.6-6.20); Red Cell Distribution Width 14.7 % (11.5-14.5)
[2020-02-07 06:47] LABS: Alanine Aminotransferase 25 U/L (4-50); Anion Gap 7 mmol/L (8-16); Blood Urea Nitrogen 58 mg/dL (9-20); Carbon Dioxide 38 mmol/L (22-30); Chloride 86 mmol/L (98-107); Estimated CRCL calculation 46 ml/min; Estimated Glomerular Filt Rate 54; Glucose 131 mg/dL (75-110); Potassium 4.9 mmol/L (3.4-5.0); Sodium 131 mmol/L (137-145)
[2020-02-07] MEDS: ALBUTEROL SULFATE (*SP) AEROSOL 1 PUFF 2 PUFF INHALATION ×3 (08:31→22:31)
[2020-02-07] MEDS: ENOXAPARIN 40 MG/0.4 ML SYRINGE SUB-Q ×2 (09:08→21:26)
[2020-02-07] MEDS: DEXAMETHASONE SOD PHOS INJ 4 MG/ML VIAL 6 MG IV PUSH (09:08)
[2020-02-07] MEDS: ROSUVASTATIN 10 MG TABLET 40 MG PO (09:09)
[2020-02-07] MEDS: FLUTICASONE PROPIONATE 0.05% NA SPR 16 GM BTL (*BKC) 1 SPRAY NASAL ×2 (09:09→21:26)
[2020-02-07] MEDS: PROPRANOLOL HCL 40 MG TABLET PO ×2 (09:09→21:26)
[2020-02-07] MEDS: POTASSIUM CHLORIDE 20 MEQ PACKET (FOR LIQUID) 40 MEQ PO (09:09)
[2020-02-07] MEDS: FUROSEMIDE INJ 40 MG/4 ML VIAL 20 MG IV PUSH ×2 (09:09→17:17)
[2020-02-07] MEDS: FINASTERIDE 5 MG TABLET PO (09:10)
[2020-02-07] MEDS: TAMSULOSIN HCL 0.4 MG CAPSULE PO (09:10)
[2020-02-07] MEDS: ASPIRIN 81 MG ENTERIC TABLET PO (09:10)
[2020-02-07 09:56] LABS: Glucose Point of Care 138 (65-105)
[2020-02-07] MEDS: REMDESIVIR 100 MG/NS 250 ML 100 MG/250 ML BAG 250 MG IVPB (10:50)
--- NOTE | 2020-02-07 12:07 | PM.IMPN ---
Progress Note: A&P Assessment and Plan (1) Pneumonia due to COVID-19 virus: Code(s): U07.1 - COVID-19; J12.89 - Other viral pneumonia Status: Acute Assessment and Plan: -Supplemental oxygen to keep oxygen saturation greater than 90% -Remdesivir/dexamethasone: 02/04- -Tylenol for fever greater than 100.4 -DVT prophylaxis with Lovenox 40 mg b.i.d. for COVID-19 -GI prophylaxis while on steroids Protonix 40 mg daily -continue Symbicort -MDI: Albuterol q.6 hours -supplements: Zinc, vitamin-C, vitamin-D -incentive spirometer (2) Acute respiratory failure with hypoxia: Code(s): J96.01 - Acute respiratory failure with hypoxia Status: Acute (3) CHF (congestive heart failure): Code(s): I50.9 - Heart failure, unspecified Status: Acute Assessment and Plan: -Continue Lasix 20 mg b.i.d. IV -potassium 4.9, will cut down supplemental potassium to 20 mEq b.i.d. as opposed to 40mEq, will follow with a.m. labs Additional Plan Anxiety: P.r.n. Xanax Other chronic conditions -BPH: Flomax, Proscar -hyperlipidemia: Crestor Diet: Heart healthy DVT prophylaxis: Lovenox 40 mg b.i.d. GI prophylaxis: Protonix daily Causes: Full code Disposition: Med surg Time Spent With Patient Time with patient: 15 - 25 minutes Subjective Date/time seen: 02/07/20 12:07 patient examined bedside. Patient initially on of his oxygen went down to 6 L as he was doing well. He was then found to be hypoxic at 80 and then moved back to high-flow 15 L with non-rebreather temporarily increasing oxygen saturation 98%. We will continue to wean down and give supportive oxygen. Hemispheric dexamethasone started on 02/04. He is clinically stable. Will continue COVID-19 management as is. Review of Systems Review of Systems: Narrative: Constitutional: No Fever, No Chills, No Night Sweats, No Fatigue, No Malaise ENT/Mouth: No Hearing Changes, No Ear Pain, No Nasal Congestion, No Sinus Pain, No Hoarseness, No sore throat, No Rhinorrhea, No Swallowing Difficulty Eyes: No Eye Pain, No Redness, No Vision Changes Cardiovascular: No Chest Pain, No Palpitations, No Dyspnea on Exertion, No Orthopnea, No Claudication, No Edema Respiratory: Endorses dyspnea. Denies wheezing. Gastrointestinal: No Nausea, No Vomiting, No Diarrhea, No Constipation, No Abdominal Pain, No Heartburn, No Hematochezia, No Melena Genitourinary: No Dysuria, No Urinary Frequency, No Hematuria, No Urinary Incontinence, No Urgency Musculoskeletal: No Arthralgias, No Myalgias, No Joint Swelling, No Joint Stiffness, No Back Pain Skin: No Skin Lesions, No Pruritis, No Hair Changes Neuro: No Weakness, No Numbness, No Paresthesias, No Loss of Consciousness, No Syncope, No Dizziness, No Headache Psych: No Anxiety/Panic, No Depression, No Insomnia Heme: No Bruising, No Bleeding Lymph: No Adenopathy Endocrine: No Polyuria, No Polydipsia, No Temperature Intolerance Exam Narrative: Exam Narrative: - GENERAL: Pleasant elder man with comfortably on non-rebreather and nasal cannula. - EYES: EOMI. Anicteric. - HENT: Moist mucous membranes. No scleral icterus. - LUNGS: Diminished lung sounds throughout. No wheezing. - CARDIOVASCULAR: Irregularly irregular. No murmur. No JVD. - ABDOMEN: Soft, non-tender and non-distended. No palpable masses. - EXTREMITIES: No edema. Peripheral pulses 2+. Non-tender. - NEUROLOGIC: No focal neurological deficits. CN II-XII grossly intact. - PSYCHIATRIC: Awake, Alert and oriented x 3. Appropriate mood and affect. - SKIN: No rashes or lesions. Warm. - LYMPH: No cervical lymphadenopathy. Objective Data Vital Signs Vital Signs: Vital Signs - 24 hr 02/06/20 16:00 02/06/20 20:00 02/06/20 21:42 Temperature 36.4 C 36.6 C Pulse Rate 53 L 53 L 60 Respiratory Rate 20 22 H Blood Pressure 132/70 123/70 Pulse Oximetry 91 92 02/06/20 21:57 02/07/20 00:00 02/07/20 02:00 Temperature 36.7 C Pulse Rate 65 62 Respiratory
[2020-02-07] MEDS: ZINC SULFATE 220 MG CAPSULE PO (13:36)
[2020-02-07] MEDS: PANTOPRAZOLE 40 MG TABLET PO (13:36)
[2020-02-07] MEDS: ASCORBIC ACID 500 MG TABLET PO (13:36)
[2020-02-07] MEDS: CHOLECALCIFEROL 1,000 UNITS TABLET 1000 UNITS PO (13:37)
[2020-02-07] MEDS: POTASSIUM CHLORIDE 20 MEQ PACKET (FOR LIQUID) PO (17:17)
[2020-02-08] VITALS (11 sets, daily range): BP systolic 97–129; BP diastolic 50–85; PULSE 58–83; RESP 20–24; TEMP 36–36.7; O2SAT 90–97
[2020-02-08] MEDS: ALPRAZolam (*CRX) 0.25 MG TABLET PO (00:21)
[2020-02-08] MEDS: ALBUTEROL SULFATE (*SP) AEROSOL 1 PUFF 2 PUFF INHALATION ×4 (03:37→22:05)
[2020-02-08] MEDS: ROSUVASTATIN 10 MG TABLET 40 MG PO (08:01)
[2020-02-08] MEDS: POTASSIUM CHLORIDE 20 MEQ PACKET (FOR LIQUID) PO ×2 (08:02→16:16)
[2020-02-08] MEDS: ASPIRIN 81 MG ENTERIC TABLET PO (08:02)
[2020-02-08] MEDS: ASCORBIC ACID 500 MG TABLET PO (08:02)
[2020-02-08] MEDS: CHOLECALCIFEROL 1,000 UNITS TABLET 1000 UNITS PO (08:03)
[2020-02-08] MEDS: ZINC SULFATE 220 MG CAPSULE PO (08:03)
[2020-02-08] MEDS: TAMSULOSIN HCL 0.4 MG CAPSULE PO (08:03)
[2020-02-08] MEDS: PANTOPRAZOLE 40 MG TABLET PO (08:03)
[2020-02-08] MEDS: FINASTERIDE 5 MG TABLET PO (08:04)
[2020-02-08] MEDS: DEXAMETHASONE SOD PHOS INJ 4 MG/ML VIAL 6 MG IV PUSH (08:04)
[2020-02-08] MEDS: guaiFENesin 200 MG/10 ML UDC 400 MG PO ×2 (08:04→16:16)
[2020-02-08] MEDS: ENOXAPARIN 40 MG/0.4 ML SYRINGE SUB-Q ×2 (08:05→21:50)
[2020-02-08] MEDS: FLUTICASONE PROPIONATE 0.05% NA SPR 16 GM BTL (*BKC) 1 SPRAY NASAL ×2 (08:05→21:50)
[2020-02-08] MEDS: FUROSEMIDE INJ 40 MG/4 ML VIAL 20 MG IV PUSH ×2 (08:05→16:16)
[2020-02-08 08:18] LABS: Basophils Percent Auto 0.2 % (0.2-1.2); Hematocrit 42.4 % (42.0-52.0); Hemoglobin 13.8 g/dL (14.0-18.0); Immature Granulocyte Absolute 0.25 K/mm3 (0.00-0.031); Immature Granulocyte Percent A 1.5 % (0-0.5); Lymphocytes Absolute Auto 0.45 K/mm3 (0.9-3.2); Lymphocytes Percent Auto 2.7 % (18.3-44.2); Mean Corpuscular HGB Conc 32.5 g/dl (32-36); Mean Corpuscular Hemoglobin 28.8 pg (26-34); Mean Corpuscular Volume 88.3 fl (80-100); Mean Platelet Volume 11.5 fl (7.4-10.4); Monocytes Absolute Auto 0.8 K/mm3 (0.1-0.6); Monocytes Percent Auto 4.6 % (2.6-8.5); Neutrophils Absolute Auto 15.2 K/mm3 (1.3-6.7); Platelet Count Result 170 k/mm3 (150-375); Red Cell Distribution Width 14.6 % (11.5-14.5); White Blood Count 16.7 K/mm3 (4.5-10.0)
[2020-02-08 08:33] LABS: Alanine Aminotransferase 22 U/L (4-50); Anion Gap 10 mmol/L (8-16); Blood Urea Nitrogen 63 mg/dL (9-20); Calcium 8.4 mg/dL (8.4-10.2); Carbon Dioxide 35 mmol/L (22-30); Chloride 88 mmol/L (98-107); Estimated CRCL calculation 46 ml/min; Estimated Glomerular Filt Rate 54; Glucose 140 mg/dL (75-110); Potassium 4.1 mmol/L (3.4-5.0); Sodium 133 mmol/L (137-145)
[2020-02-08] MEDS: PROPRANOLOL HCL 40 MG TABLET PO ×2 (09:49→21:50)
[2020-02-08] MEDS: REMDESIVIR 100 MG/NS 250 ML 100 MG/250 ML BAG 250 MG IVPB (09:49)
--- NOTE | 2020-02-08 17:28 | PM.IMPN ---
Progress Note: A&P Assessment and Plan (1) Pneumonia due to COVID-19 virus: Code(s): U07.1 - COVID-19; J12.89 - Other viral pneumonia Status: Acute Assessment and Plan: -Supplemental oxygen to keep oxygen saturation greater than 90% -Remdesivir/dexamethasone: 02/04- -Tylenol for fever greater than 100.4 -DVT prophylaxis with Lovenox 40 mg b.i.d. for COVID-19 -GI prophylaxis while on steroids Protonix 40 mg daily -continue Symbicort -MDI: Albuterol q.6 hours -supplements: Zinc, vitamin-C, vitamin-D -incentive spirometer - will follow with a.m. labs including ferritin, CRP, LDH (2) Acute respiratory failure with hypoxia: Code(s): J96.01 - Acute respiratory failure with hypoxia Status: Acute Assessment and Plan: See above (3) CHF (congestive heart failure): Code(s): I50.9 - Heart failure, unspecified Status: Acute Assessment and Plan: -Continue Lasix 20 mg b.i.d. IV -potassium 4.1, improved by cutting down supplemental potassium to 20 mEq b.i.d. from 40 mg b.i.d. (4) Urinary retention: Code(s): R33.9 - Retention of urine, unspecified Status: Acute Assessment and Plan: will try timed voids, bladder scan Q 6 hours, if urinary retention becomes repeated problem will place Courtney catheter. Patient is already on multiple agents for BPH Flomax and Proscar. This new urinary retention may be due to the critical illness of COVID-19. (5) Leukocytosis: Code(s): D72.829 - Elevated white blood cell count, unspecified Status: Acute Assessment and Plan: Likely secondary to steroids, up to 16.7 K on 02/08/2020, BUN is also rising while creatinine is stable, likely secondary to steroids. Additional Plan Anxiety: P.r.n. Xanax Other chronic conditions -BPH: Flomax, Proscar -hyperlipidemia: Crestor Diet: Heart healthy DVT prophylaxis: Lovenox 40 mg b.i.d. GI prophylaxis: Protonix daily Code status: Full code Disposition: Med surg, pending clinical course Subjective Date/time seen: 02/08/20 17:28 patient examined bedside. Patient is having issues urinary retention, will straight cath. Patient may need Courtney catheter if he continues to have problems with urinary retention. Otherwise will continue treatment for COVID-19 as is with Remdesivir and dexamethasone , supplements. patient denies fever, chills, nausea, vomiting, diarrhea. Does endorse dyspnea despite being on nasal cannula and non-rebreather. Review of Systems Review of Systems: All systems reviewed & are unremarkable except as noted in HPI and below Exam Narrative: Exam Narrative: - GENERAL: Pleasant elder man with comfortably on non-rebreather and nasal cannula. - EYES: EOMI. Anicteric. - HENT: Moist mucous membranes. No scleral icterus. - LUNGS: Diminished lung sounds throughout. No wheezing. - CARDIOVASCULAR: Irregularly irregular. No murmur. No JVD. - ABDOMEN: Soft, non-tender and non-distended. No palpable masses. - EXTREMITIES: No edema. Peripheral pulses 2+. Non-tender. - NEUROLOGIC: No focal neurological deficits. CN II-XII grossly intact. - PSYCHIATRIC: Awake, Alert and oriented x 3. Appropriate mood and affect. - SKIN: No rashes or lesions. Warm. - LYMPH: No cervical lymphadenopathy. Objective Data Vital Signs Vital Signs: Vital Signs - 24 hr 02/07/20 20:00 02/07/20 21:26 02/07/20 22:31 Temperature Pulse Rate 68 62 Respiratory Rate Blood Pressure Pulse Oximetry 97 93 02/07/20 22:45 02/08/20 00:00 02/08/20 03:37 Temperature 36.6 C Pulse Rate 90 63 60 Respiratory Rate 20 Blood Pressure 107/59 L Pulse Oximetry 90 94 93 02/08/20 04:00 02/08/20 08:00 02/08/20 09:49 Temperature 36.7 C 36.0 C L Pulse Rate 65 71 71 Respiratory Rate 20 22 H Blood Pressure 109/50 L 99/61 L Pulse Oximetry 91 96 02/08/20 12:00 02/08/20 16:00 Temperature 36.1 C L 36.1 C L Pulse Rate 81 72 Respiratory Rate 20 20 Blood Pressure
[2020-02-09] VITALS (20 sets, daily range): BP systolic 93–128; BP diastolic 67–87; PULSE 62–87; RESP 18–24; TEMP 35.9–36.8; O2SAT 76–98
--- NOTE | 2020-02-09 05:22 | PC.NURSE ---
Report given per telephone to [facility]. Delfina, in Respiratory, notified of planned transfer to IMU.
--- NOTE | 2020-02-09 06:42 | PC.NURSE ---
This patient, Trent Swartz, was transferred to [ ] on 02/09/20 at 0642. Personal belongings sent with patient. Report given to [ ]. Appropriate documentation sent with patient. recieved report from Do GARZA arrived at 0600
[2020-02-09] MEDS: PANTOPRAZOLE 40 MG TABLET PO (08:13)
[2020-02-09] MEDS: ROSUVASTATIN 10 MG TABLET 40 MG PO (08:13)
[2020-02-09] MEDS: DEXAMETHASONE SOD PHOS INJ 4 MG/ML VIAL 6 MG IV PUSH (08:14)
[2020-02-09] MEDS: ASPIRIN 81 MG ENTERIC TABLET PO (08:14)
[2020-02-09] MEDS: CHOLECALCIFEROL 1,000 UNITS TABLET 1000 UNITS PO (08:14)
[2020-02-09] MEDS: FINASTERIDE 5 MG TABLET PO (08:14)
[2020-02-09] MEDS: TAMSULOSIN HCL 0.4 MG CAPSULE PO (08:14)
[2020-02-09] MEDS: ENOXAPARIN 40 MG/0.4 ML SYRINGE SUB-Q ×2 (08:14→22:24)
[2020-02-09] MEDS: FLUTICASONE PROPIONATE 0.05% NA SPR 16 GM BTL (*BKC) 1 SPRAY NASAL ×2 (08:15→22:24)
[2020-02-09] MEDS: ASCORBIC ACID 500 MG TABLET PO (08:15)
[2020-02-09] MEDS: PROPRANOLOL HCL 40 MG TABLET PO ×2 (08:15→22:24)
[2020-02-09] MEDS: POTASSIUM CHLORIDE 20 MEQ PACKET (FOR LIQUID) PO ×2 (08:15→16:26)
[2020-02-09] MEDS: FUROSEMIDE INJ 40 MG/4 ML VIAL 20 MG IV PUSH ×2 (08:15→16:25)
[2020-02-09] MEDS: ZINC SULFATE 220 MG CAPSULE PO (08:16)
--- NOTE | 2020-02-09 08:38 | PM.IMPN ---
Progress Note: A&P Assessment and Plan (1) Pneumonia due to COVID-19 virus: Code(s): U07.1 - COVID-19; J12.89 - Other viral pneumonia Status: Acute Assessment and Plan: -Supplemental oxygen to keep oxygen saturation greater than 90% -Remdesivir/dexamethasone: 02/04- -giving convalescent plasma 02/08 -Tylenol for fever greater than 100.4 -DVT prophylaxis with Lovenox 40 mg b.i.d. for COVID-19 -GI prophylaxis while on steroids Protonix 40 mg daily -continue Symbicort -MDI: Albuterol q.6 hours -supplements: Zinc, vitamin-C, vitamin-D -incentive spirometer -will follow with AM labs -ordered CXR 01/08 (2) Acute respiratory failure with hypoxia: Code(s): J96.01 - Acute respiratory failure with hypoxia Status: Acute Assessment and Plan: See above (3) CHF (congestive heart failure): Code(s): I50.9 - Heart failure, unspecified Status: Acute Assessment and Plan: -Continue Lasix 20 mg b.i.d. IV, checking CXR to see about continuing diuretics -potassium 4.5, on supplemental K 20mEq bid, will watch, if increase will stop (4) Urinary retention: Code(s): R33.9 - Retention of urine, unspecified Status: Acute Assessment and Plan: goff cathether placed overnight (5) Leukocytosis: Code(s): D72.829 - Elevated white blood cell count, unspecified Status: Acute Assessment and Plan: Likely secondary to steroids, BUN is also rising while creatinine is stable, likely secondary to steroids. (6) Acute renal insufficiency: Code(s): N28.9 - Disorder of kidney and ureter, unspecified Status: Acute Assessment and Plan: Cr les to 1.60, will continue IV diuresis today, if it gets worse by tomorrow then will stop. CXR 02/08 consistent with edema as well as COVID. Additional Plan Anxiety: P.r.n. Xanax Other chronic conditions -BPH: Flomax, Proscar -hyperlipidemia: Crestor Diet: Heart healthy DVT prophylaxis: Lovenox 40 mg b.i.d. GI prophylaxis: Protonix daily Code status: changed to DNR 02/09/2020, family Demi updated [phone] Disposition: IMU, pending clinical course Subjective Date/time seen: 02/09/20 08:38 Patient moved to IMU overnight for desaturation. He was put on Airvo 45 L at 88% with non-rebreather. Patient would like to change his code status to do not intubate and do not resuscitate. I called daughter Demi [phone] to update her about clinical status and code status change. She understands. Covid positive 02/03-, Remdesivir/dexamethasone started 02/04-, giving convalescent plasma 02/08. Checking inflammatory markers. He endorses dyspnea but feels alright. He needed help with pills this AM and desaturated to 82% when non-rebreather was temporarily removed so he can take his AM meds. CXR today shows ill defined edema and findings consistent with COVID19. Patient denies fever, chills, nausea, vomiting, diarrhea, chest pain, lightheadedness, dizziness. Review of Systems Review of Systems: All systems reviewed & are unremarkable except as noted in HPI and below Exam Narrative: Exam Narrative: - GENERAL: Pleasant elder man with breathing comfortably on airvo and non-rebreather - EYES: EOMI. Anicteric. - HENT: Moist mucous membranes. No scleral icterus. - LUNGS: Diminished lung sounds throughout. No wheezing. - CARDIOVASCULAR: regular rate and rhythm. No murmur. No JVD. - ABDOMEN: Soft, non-tender and non-distended. No palpable masses. - EXTREMITIES: No edema. Peripheral pulses 2+. Non-tender. - NEUROLOGIC: No focal neurological deficits. CN II-XII grossly intact. - PSYCHIATRIC: Awake, Alert and oriented x 3. Appropriate mood and affect. - SKIN: No rashes or lesions. Warm. - LYMPH: No cervical lymphadenopathy. Objective Data Vital Signs Vital Signs: Vital Signs - 24 hr 02/08/20 09:49 02/08/20 12:00 02/08/20 16:00 Temperature 36.1 C L 36.1 C L Pulse Rate 71 81 72 Respiratory Rate 20 20 Blood Pr
[2020-02-09 10:45] LABS: Basophils Absolute Auto 0.1 K/mm3 (0.0-0.1); Basophils Percent Auto 0.2 % (0.2-1.2); Hematocrit 47.4 % (42.0-52.0); Hemoglobin 15.3 g/dL (14.0-18.0); Immature Granulocyte Percent A 1.3 % (0-0.5); Lymphocytes Absolute Auto 0.35 K/mm3 (0.9-3.2); Lymphocytes Percent Auto 1.5 % (18.3-44.2); Mean Corpuscular HGB Conc 32.3 g/dl (32-36); Mean Corpuscular Hemoglobin 28.9 pg (26-34); Mean Corpuscular Volume 89.4 fl (80-100); Mean Platelet Volume 12.3 fl (7.4-10.4); Monocytes Absolute Auto 0.8 K/mm3 (0.1-0.6); Monocytes Percent Auto 3.2 % (2.6-8.5); Neutrophils Absolute Auto 22.2 K/mm3 (1.3-6.7); Neutrophils Percent Auto 93.8 % (45.5-73.1); Platelet Count Result 179 k/mm3 (150-375); Red Cell Distribution Width 14.7 % (11.5-14.5); White Blood Count 23.7 K/mm3 (4.5-10.0)
--- NOTE | 2020-02-09 10:48 | PCPTNOTE ---
Spoke w/ Owen GARZA. Pt transferred due to increased O2 needs. Will hold PT due to change in respiratory status.
[2020-02-09 11:07] LABS: Alanine Aminotransferase 20 U/L (4-50); Anion Gap 11 mmol/L (8-16); Blood Urea Nitrogen 69 mg/dL (9-20); CRP 5.6 mg/dL (<1.0); Calcium 8.9 mg/dL (8.4-10.2); Carbon Dioxide 34 mmol/L (22-30); Chloride 87 mmol/L (98-107); Estimated CRCL calculation 38 ml/min; Estimated Glomerular Filt Rate 42; Glucose 158 mg/dL (75-110); Lactate Dehydrogenase 1682 U/L (313-618); Potassium 4.5 mmol/L (3.4-5.0); Sodium 132 mmol/L (137-145)
[2020-02-09] MEDS: REMDESIVIR 100 MG/NS 250 ML 100 MG/250 ML BAG 250 MG IVPB (11:53)
--- NOTE | 2020-02-09 12:38 | PCOTNOTE ---
Spoke w/ Owen GARZA. Pt transferred due to increased O2 needs. Will hold OT due to change in respiratory status today.
[2020-02-10] VITALS (16 sets, daily range): BP systolic 68–133; BP diastolic 40–75; PULSE 57–90; RESP 18–22; TEMP 36.4–36.7; O2SAT 51–93
[2020-02-10] MEDS: TUBING, BLOOD PLUM PUMP TUBING 1 EACH XX (05:07)
[2020-02-10 05:53] LABS: Basophils Percent Auto 0.1 % (0.2-1.2); Hematocrit 42.2 % (42.0-52.0); Hemoglobin 13.8 g/dL (14.0-18.0); Immature Granulocyte Absolute 0.23 K/mm3 (0.00-0.031); Immature Granulocyte Percent A 1.1 % (0-0.5); Lymphocytes Absolute Auto 0.32 K/mm3 (0.9-3.2); Lymphocytes Percent Auto 1.5 % (18.3-44.2); Mean Corpuscular HGB Conc 32.7 g/dl (32-36); Mean Corpuscular Hemoglobin 28.6 pg (26-34); Mean Corpuscular Volume 87.4 fl (80-100); Mean Platelet Volume 11.9 fl (7.4-10.4); Monocytes Absolute Auto 0.8 K/mm3 (0.1-0.6); Monocytes Percent Auto 3.5 % (2.6-8.5); Neutrophils Absolute Auto 19.8 K/mm3 (1.3-6.7); Neutrophils Percent Auto 93.8 % (45.5-73.1); Platelet Count Result 170 k/mm3 (150-375); Red Blood Count 4.83 M/mm3 (4.6-6.20); Red Cell Distribution Width 14.7 % (11.5-14.5); White Blood Count 21.2 K/mm3 (4.5-10.0)
[2020-02-10 06:30] LABS: Anion Gap 11 mmol/L (8-16); Blood Urea Nitrogen 78 mg/dL (9-20); Calcium 8.6 mg/dL (8.4-10.2); Carbon Dioxide 35 mmol/L (22-30); Chloride 87 mmol/L (98-107); Estimated CRCL calculation 36 ml/min; Estimated Glomerular Filt Rate 39; Glucose 181 mg/dL (75-110); Potassium 4.2 mmol/L (3.4-5.0); Sodium 133 mmol/L (137-145)
[2020-02-10] MEDS: ALBUTEROL SULFATE (*SP) AEROSOL 1 PUFF 2 PUFF INHALATION (09:45)
[2020-02-10] MEDS: ENOXAPARIN 40 MG/0.4 ML SYRINGE SUB-Q (10:17)
[2020-02-10] MEDS: POTASSIUM CHLORIDE 20 MEQ PACKET (FOR LIQUID) PO (10:17)
[2020-02-10] MEDS: ROSUVASTATIN 10 MG TABLET 40 MG PO (10:18)
[2020-02-10] MEDS: ZINC SULFATE 220 MG CAPSULE PO (10:18)
[2020-02-10] MEDS: FINASTERIDE 5 MG TABLET PO (10:19)
[2020-02-10] MEDS: DEXAMETHASONE SOD PHOS INJ 4 MG/ML VIAL 6 MG IV PUSH (10:19)
[2020-02-10] MEDS: PANTOPRAZOLE 40 MG TABLET PO (10:19)
[2020-02-10] MEDS: ASCORBIC ACID 500 MG TABLET PO (10:20)
[2020-02-10] MEDS: CHOLECALCIFEROL 1,000 UNITS TABLET 1000 UNITS PO (10:20)
[2020-02-10] MEDS: ASPIRIN 81 MG ENTERIC TABLET PO (10:20)
[2020-02-10] MEDS: FLUTICASONE PROPIONATE 0.05% NA SPR 16 GM BTL (*BKC) 1 SPRAY NASAL (10:20)
--- NOTE | 2020-02-10 11:26 | PM.IMPN ---
Progress Note: A&P Assessment and Plan (1) Pneumonia due to COVID-19 virus: Code(s): U07.1 - COVID-19; J12.89 - Other viral pneumonia Status: Acute Assessment and Plan: -Supplemental oxygen to keep oxygen saturation greater than 90% on airvo and non-rebreather -Remdesivir/dexamethasone: 02/04- -convalescent plasma 02/08 -Tylenol for fever greater than 100.4 -DVT prophylaxis with Lovenox 40 mg b.i.d. for COVID-19 -GI prophylaxis while on steroids Protonix 40 mg daily -continue Symbicort -MDI: Albuterol q.6 hours -supplements: Zinc, vitamin-C, vitamin-D -incentive spirometer, patient will be unable to do while on airvo and non-rebreather -will follow with AM labs (2) Acute respiratory failure with hypoxia: Code(s): J96.01 - Acute respiratory failure with hypoxia Status: Acute Assessment and Plan: See above (3) CHF (congestive heart failure): Code(s): I50.9 - Heart failure, unspecified Status: Acute Assessment and Plan: -stopping lasix for hypotension and will stop potassium supplement. K stable at 4.2 (4) Urinary retention: Code(s): R33.9 - Retention of urine, unspecified Status: Acute Assessment and Plan: -goff catheter placed while critically ill (5) Leukocytosis: Code(s): D72.829 - Elevated white blood cell count, unspecified Status: Acute Assessment and Plan: -Likely secondary to steroids, BUN is also rising while creatinine is stable, likely secondary to steroids. (6) Acute renal insufficiency: Code(s): N28.9 - Disorder of kidney and ureter, unspecified Status: Acute Assessment and Plan: -Cr rising even moreso, stopping lasix and giving IVF bolus normal saline. (7) Hypovolemia: Code(s): E86.1 - Hypovolemia Status: Acute Assessment and Plan: from lasix, stopping diuretics and giving IVF Additional Plan Anxiety: P.r.n. Xanax Other chronic conditions -BPH: Flomax with hold parameters for hypotension, Proscar -hyperlipidemia: Crestor Diet: Heart healthy DVT prophylaxis: Lovenox 40 mg b.i.d. GI prophylaxis: Protonix daily Code status: changed to DNR 02/09/2020, family Demi [phone] Disposition: IMU, pending clinical course Subjective Date/time seen: 02/10/20 11:26 Patient examined. Complains of persistent cough, increasing guaifenesin dose to 400mg q.4 hours p.r.n.. he is found to be hypotensive systolic blood pressure 70, on manual check as well. Stopping Lasix, giving 1 L fluid bolus, hold parameters on propanolol and Flomax to hold if systolic blood pressure less than 100. stopping potassium supplement with stopping lasix. patient is considering comfort care measures, will continue treatment course as is. Patient is DNR/DNI. Oral care daily. Review of Systems Review of Systems: All systems reviewed & are unremarkable except as noted in HPI and below Exam Narrative: Exam Narrative: - GENERAL: Pleasant elder man with breathing comfortably on airvo and non-rebreather - EYES: EOMI. Anicteric. - HENT: dry mucous membranes. No scleral icterus. - LUNGS: Diminished lung sounds but clear throughout. No wheezing. - CARDIOVASCULAR: regular rate and rhythm. No murmur. No JVD. - ABDOMEN: Soft, non-tender and non-distended. - EXTREMITIES: Peripheral pulses 2+. Non-tender. no edema. - NEUROLOGIC: No focal neurological deficits. CN II-XII grossly intact. - PSYCHIATRIC: Awake, Alert and oriented x 3. Appropriate mood and affect. - SKIN: dry skin changes on legs - LYMPH: No cervical lymphadenopathy. Objective Data Vital Signs Vital Signs: Vital Signs - 24 hr 02/09/20 11:59 02/09/20 12:00 02/09/20 14:00 Temperature 36.2 C L 36.4 C L Pulse Rate 74 73 74 Respiratory Rate 18 22 H Blood Pressure 93/68 L 93/68 L Pulse Oximetry 92 90 02/09/20 16:00 02/09/20 18:00 02/09/20 20:00 Temperature 36.4 C 36.7 C Pulse Rate 75 80 77 Respiratory Rate 22 H 22 H Blood
--- NOTE | 2020-02-10 14:31 | PCPTNOTE ---
Spoke w/ Dr Rosario at 1355. He agreed w/ hold PT/OT due to decline in medical status.
--- NOTE | 2020-02-10 14:49 | PCRCNOTE ---
CALLED TO ROOM BY RN. PATIENT TOOK O2 OFF AND STATES HE WANTS TO . AT BEDSIDE. DISCUSSING HOSPICE WITH PATIENT.
--- NOTE | 2020-02-10 14:56 | PC.NURSE ---
Patient is alert and oriented X4. Patient said he wants to be hospice care and is declining future medical treatment except comfort measures. Doctor has been notified and spoke with the patient regarding his wishes. Patients family has been notified.
[2020-02-10] MEDS: LORazepam INJ (*CRX) 2 MG/ML VIAL 1 MG IV PUSH (16:45)
[2020-02-10] MEDS: MORPHINE SULFATE (*CRX) 2 MG/ML INJ IV PUSH (16:46)
[2020-02-10] MEDS: MORPHINE SULFATE (*CRX) 4 MG/ML INJ (18:38)
--- NOTE | 2020-02-10 20:30 | PM.DDS ---
Discharge Sum: Prov Provider Primary care physician: oJnel Urena, DO Admitting provider: Louann Ya MD Attending physician on admission: Louann Ya Pronouncing clinician: Eddie Rosario Discharge Sum: Diag PCOD COVID-19 Discharge Sum: Summary Date and Time Date of admission: 01/30/20 16:24 Date of : 02/10/20 Time of : 18:55 Summary Details: Patient is a 5-year-old male with past medical history of CAD, COPD, diastolic dysfunction and chronic atrial fibrillation who presents to ED with complaints of dyspnea on 01/30/2020. He was diagnosed with COVID-19. He was treated with supplemental oxygen slowly uptitrated from nasal cannula, high-flow nasal cannula, non rebreather, Airvo. He was treated with Remdesivir 02/04- for 5 day course, dexamethasone, convalescent plasma 02/08. On 02/09 he stated did not to continue with treatment. He ripped off his oxygen and I encouraged him to put it back on again talked to his family. His son and daughter came bedside. patient decided on going comfort care. He is given Ativan and morphine for comfort and oxygen was removed. time of 18:55 on 02/10/2020. Cause of acute hypoxic respiratory failure from COVID-19. significant underlying comorbidities COPD and diastolic heart failure. Additional Data Confirmation of as documented by pronouncing clinician: no pulse, no respirations, no heart sounds and pupils fixed and dilated Family: at bedside Attending/PCP notified?: No Attending physician: Stewart Rosario DO Was code activated?: No Autopsy requested?: No Advance directives: Yes ( Changed to DNR on 02/09/2020)
--- NOTE | 2020-02-10 20:50 | PC.NURSE ---
18:55 Patient . Patient family notified. home notified.
== END 2020-02-10 18:55 | disposition expired | DRG 177 ==
LOC: ANHED 17:55 → ANHIMU 17:57 → ANH2MED 02-03 10:34 → ANH3MEDSUR 02-05 04:38 → ANH2MED 02-13 13:34 → ANH3MEDSUR 02-13 13:34 → ANHIMU 02-13 13:34
PROVIDERS: Family Medicine; Hospitalist; Internal Medicine; Admitting Provider Internal Medicine; Emergency Provider Emergency Medicine; PCP Student in an Organized Health Care Education/Training Program; Visit Provider Student in an Organized Health Care Education/Training Program
DX: U07.1 COVID-19 (principal); J12.89 Other viral pneumonia; J96.01 Acute respiratory failure with hypoxia; I50.33 Acute on chronic diastolic (congestive) heart failure; I13.0 Hypertensive heart and chronic kidney disease with heart failure and stage 1 through stage 4 chronic kidney disease, or unspecified chronic kidney disease; I48.20 Chronic atrial fibrillation, unspecified; I24.8 Other forms of acute ischemic heart disease; N18.30 Chronic kidney disease, stage 3 unspecified; R33.9 Retention of urine, unspecified; D72.829 Elevated white blood cell count, unspecified; T38.0X5A Adverse effect of glucocorticoids and synthetic analogues, initial encounter; N28.9 Disorder of kidney and ureter, unspecified; Z66 Do not resuscitate; N40.0 Benign prostatic hyperplasia without lower urinary tract symptoms; I25.10 Atherosclerotic heart disease of native coronary artery without angina pectoris; E78.2 Mixed hyperlipidemia; M19.90 Unspecified osteoarthritis, unspecified site; J43.9 Emphysema, unspecified; I73.9 Peripheral vascular disease, unspecified; D64.9 Anemia, unspecified; F32.9 Major depressive disorder, single episode, unspecified; I25.2 Old myocardial infarction; Z86.73 Personal history of transient ischemic attack (TIA), and cerebral infarction without residual deficits; Z85.118 Personal history of other malignant neoplasm of bronchus and lung; Z95.5 Presence of coronary angioplasty implant and graft; Z87.891 Personal history of nicotine dependence
CPT/HCPCS: 36415; 36430; 36600; 71045; 71275; 80048; 80053; 81001; 82728; 82805; 83605; 83615; 83690; 83880; 84460; 84484; 85025; 85027; 85380; 85610; 85730; 86140; 86900; 86901; 87040; 87635; 93005; 94002; 94003; 94618; 94640; 96374; 96375; 96376; 97110; 97116; 97161; 97165; 97530; 97535; 99285; A9270; C9803; G0378; J1100; J1650; J1940; J2060; J2270; J2920; J2930; J7030; P9059; Q9967; U0003